=== PATIENT | male | born 1930 | race American Indian/Alaskan Native ===

== ENCOUNTER 2017-11-02 17:15 | Inpatient (IN) | payer MEDICARE, OTHER ==
[2017-11-02 17:16] VITALS: PULSE 65
--- NOTE | 2017-11-02 19:25 | ED PDOC ---
Arrival/HPI - General Chief Complaint: Weakness/Neurological Deficit Time Seen by Provider: 11/02/17 18:27 - History of Present Illness Narrative History of Present Illness (Text): 11/02/17 18:26 A 87 year old male, whose past medical history includes CVA, HTN, hypercholestremia, and Atrial fibrillation, presents to the emergency department complaining of generalized weakness for 3 days. Patient reports he is unable to get up from bed and has been unable to eat/drink since for 3 days. Patient denies any chest pain, shortness of breath, or any other complaints. Patient is uncertain who is his PMD. Time/Duration: < week (3 days) Symptom Onset: Gradual Symptom Course: Unchanged Activities at Onset: Light Context: Home Past Medical History - Provider Review Nursing Documentation Reviewed: Yes - Infectious Disease Hx of Infectious Diseases: None - Tetanus Immunization Tetanus Immunization: Unknown - Cardiac Hx Pacemaker: Yes - Neurological Hx Paralysis: Yes (HX. R FACIAL DROOP) - Hematological/Oncological Hx Blood Transfusions: No - Musculoskeletal/Rheumatological Hx Musculoskeletal Disorders: No - Psychiatric Hx Depression: No Hx Emotional Abuse: No Hx Physical Abuse: No Hx Substance Use: No - Past Surgical History Past Surgical History: Unable to Obtain - Anesthesia Hx Anesthesia: No Hx Anesthesia Reactions: No Hx Malignant Hyperthermia: No - Suicidal Assessment Feels Threatened In Home Enviroment: No Family/Social History - Physician Review Nursing Documentation Reviewed: Yes Family/Social History: No Known Family HX Smoking Status: Never Smoked Hx Alcohol Use: No Hx Substance Use: No Hx Substance Use Treatment: No Allergies/Home Meds Allergies/Adverse Reactions: Allergies No Known Allergies Allergy (Verified 04/10/16 14:25) Home Medications: Home Meds Medication Instructions Recorded Confirmed Ergocalciferol (Vitamin D2) 50,000 iu PO WED 07/26/14 11/02/17 [Vitamin D] Simvastatin 40 mg PO DAILY 07/26/14 11/02/17 Cephalexin [Keflex] 500 mg PO Q12H 04/10/16 11/02/17 Lisinopril [Zestril] 2.5 mg PO DAILY 04/10/16 11/02/17 Warfarin Sodium [Jantoven] 3 mg PO DAILY 11/02/17 11/02/17 Review of Systems - Physician Review All systems were reviewed & negative as marked: Yes - Review of Systems Constitutional: Other (weakness) Gastrointestinal: Appetite Changes (unable to eat/drink for past 3 days (since start of symptom)) Physical Exam Vital Signs Reviewed: Yes Vital Signs Temp Pulse Resp BP Pulse Ox 11/02/17 17:59 97.5 F L 11/02/17 17:16 82 17 108/79 97 Temperature: Afebrile Blood Pressure: Normal Pulse: Regular Respiratory Rate: Normal Appearance: Positive for: Well-Appearing Pain Distress: None Mental Status: Positive for: Alert and Oriented X 3 - Systems Exam Head: Present: Atraumatic, Normocephalic Pupils: Present: PERRL Extroacular Muscles: Present: EOMI Conjunctiva: Present: Normal Mouth: Present: Dry Neck: Present: Normal Range of Motion Respiratory/Chest: Present: Clear to Auscultation, Good Air Exchange, Other ( pacemaker to left chest wall). No: Respiratory Distress, Accessory Muscle Use Cardiovascular: Present: Regular Rate and Rhythm, Normal S1, S2. No: Murmurs Abdomen: Present: Normal Bowel Sounds. No: Tenderness, Distention, Peritoneal Signs Back: Present: Normal Inspection Upper Extremity: Present: Normal Inspection. No: Cyanosis, Edema Lower Extremity: Present: Normal Inspection. No: Edema Neurological: Present: GCS=15, CN II-XII Intact, Speech Normal Skin: Present: Warm, Dry, Normal Color. No: Rashes Psychiatric: Present: Alert, Oriented x 3, Normal Insight, Normal Concentration Medical Decision Making ED Course and Treatment: 11/02/17 18:28 Impression: 87 year old male with weakness. Physical exam shows mucous membranes are dry; pacemaker to left chest wall; overall normal physical examination. Plan: -- EKG -- Head CT -- Chest X-ray -- Labs -- Urine Culture -- Urinalysis -- Reassess and disposition Prior Visits: Notes and results from previous visits were reviewed. Patient was last seen in the emergency department on 04/10/2016 for neck pain. Patient was d/c home. Progress Notes: EKG: Ordered, reviewed, and independently interpreted the EKG. Rate : 63 BPM Rhythm : Pacemaker. Interpretation : No ST-segment elevations or depressions, no T-wave inversions, normal intervals. Comparison : No previous EKG for comparison. 11/02/2017 20:[address] IMPRESSION: 1. Hypodense encephalomalacia is identified involving the left insular cortex and frontal lobe, consistent with an old infarct. 2. No acute intracranial hemorrhage or acute territorial type infarct. 3. There are scattered foci of hypodensity within the cerebral white matter, likely representing small vessel ischemic disease in a patient this age. 4. Mild atrophy. 5. Paranasal sinus disease is noted above. If the patient has facial trauma, a facial CT is recommended. Dictator: Jeffrey Barahona MD - Lab Interpretations Lab Results: 11/02/17 19:00 11/02/17 19:00 Lab Results 11/02/17 19:00: Free T4 1.23, Total T3 0.69 L, TSH 3rd Generation 1.66 11/02/17 19:00: Sodium 142, Potassium 4.3, Chloride 105, Carbon Dioxide 24, Anion Gap 18, BUN 57 H, Creatinine 3.3 H, Est GFR ( Amer) 21, Est GFR ( Non-Af Amer) 18, Random Glucose 96, Calcium 9.7, Magnesium 1.7, Total Bilirubin 1.5 H, AST 348 H, ALT 73 H, Alkaline Phosphatase 50, Lactate Dehydrogenase 1819 H, Total Creatine Kinase 19664 H, CK-MB (CK-2) 43.1 H, CK-MB (CK-2) % 0.4 L, Troponin I 0.13 H* D, NT-Pro-B Natriuret Pep 84988 H, Total Protein 7.9, Albumin 4.0, Globulin 4.0, Albumin/Globulin Ratio 1.0 L 11/02/17 19:00: WBC 5.4, RBC 4.96, Hgb 15.2, Hct 45.6, MCV 91.9, MCH 30.6, MCHC 33.3, RDW 13.8, Plt Count 78 L, MPV 12.6 H, Gran % 76.6 H, Lymph % (Auto) 12.8 L , Troup % (Auto) 10.6 H, Eos % (Auto) 0.0 L, Baso % (Auto) 0.0, Gran # 4.13, Lymph # 0.7 L, Troup # 0.6, Eos # 0.0, Baso # 0.00 I have reviewed the lab results: Yes - RAD Interpretation Radiology Orders: 11/02/17 18:29 HEAD W/O CONTRAST [CT] Stat CHEST PORTABLE [RAD] Stat Supply Chain Generalist: ED Physician, Radiologist - EKG Interpretation Interpreted by ED Physician: Yes Type: 12 lead EKG - Medication Orders Current Medication Orders: Sodium Chloride (Sodium Chloride 0.9%) 1,000 mls @ 250 mls/hr IV .Q4H ONE Stop: 11/03/17 00:03 Last Admin: 11/02/17 20:20 Dose: 250 mls/hr eMAR Start Stop Document 11/02/17 20:20 SF (Rec: 11/02/17 20:52 SF [id number] Intravenous Solution Start Date 11/02/17 Start Time 20:20 End Date 11/02/17 - Scribe Statement The provider has reviewed the documentation as recorded by the Adelita Morelos Provider Scribe Attestation: All medical record entries made by the Hernandezibfranklin were at my direction and personally dictated by me. I have reviewed the chart and agree that the record accurately reflects my personal performance of the history, physical exam, medical decision making, and the department course for this patient. I have also personally directed, reviewed, and agree with the discharge instructions and disposition. Disposition/Present on Arrival - Present on Arrival Any Indicators Present on Arrival: No History of DVT/PE: No History of Uncontrolled Diabetes: No Urinary Catheter: No History of Decub. Ulcer: No History Surgical Site Infection Following: None - Disposition Have Diagnosis and Disposition been Completed?: Yes Diagnosis: Acute renal failure, Weakness, Elevated troponin Disposition: HOSPITALIZED Disposition Time: 21:00 Condition: FAIR
[2017-11-02 19:28] LABS: CALCIUM 9.7 mg/dL (8.4-10.5); MAGNESIUM 1.7 mg/dL (1.7-2.2)
[2017-11-02 19:33] LABS: GRAN # 4.13 (1.4-6.5); GRAN % 76.6 % (50.0-68.0); HEMOGLOBIN 15.2 g/dL (14.0-18.0); LYMPH # 0.7 (1.2-3.4); LYMPH % 12.8 % (22.0-35.0); MEAN CELL VOLUME 91.9 fl (80.0-105.0); MEAN CORPUSCULAR HEMOGLOBIN 30.6 pg (25.0-35.0); MEAN CORPUSCULAR HGB CONC 33.3 g/dl (31.0-37.0); MEAN PLATELET VOLUME 12.6 fl (7.0-11.0); MONO # 0.6 (0.1-0.6); MONO % 10.6 % (1.0-6.0); RBC 4.96 10^6/uL (3.5-6.1); RED CELL DISTRIBUTION WIDTH 13.8 % (11.5-14.5); WHITE BLOOD COUNT 5.4 10^3/ul (4.5-11.0)
[2017-11-02 19:42] LABS: FREE T4 1.23 ng/dL (0.78-2.19)
[2017-11-02 19:45] LABS: TROPONIN I 0.13 ng/mL
[2017-11-02] MEDS ORDERED: Sodium Chloride 0.9% 1,000 ML IV ONE (20:04)
--- NOTE | 2017-11-02 20:21 | CT ---
EXAM: CT Head Without Intravenous Contrast EXAM DATE/TIME: 11/02/2017 6:29 PM CLINICAL HISTORY: The patient age is 87 years old and is male; Injury or trauma; Fall; Initial encounter; Blunt trauma (contusions or hematomas); Additional info: R/O ich Facility exam id and description: Ct heads head w/o contrast TECHNIQUE: Axial computed tomography images of the head/brain without intravenous contrast. All CT scans at this facility use one or more dose reduction techniques, viz.: automated exposure control; ma/kV adjustment per patient size (including targeted exams where dose is matched to indication; i.e. head); or iterative reconstruction technique. Coronal and sagittal reformatted images were created and reviewed. COMPARISON: No relevant prior studies available. FINDINGS: Brain: Hypodense encephalomalacia is identified involving the left insular cortex and frontal lobe, consistent with an old infarct. There are scattered foci of hypodensity within the cerebral white matter, likely representing small vessel ischemic disease in a patient this age. Hypodense probable artifact is seen at the medial aspects of the anterior temporal lobes bilaterally. The acuity of the white matter disease is indeterminate. The white-lilly differentiation is otherwise preserved demonstrating no acute territorial type infarct. There is mild prominence of the ventricles and sulci, compatible with atrophy. No acute intracranial hemorrhage is seen. Midline shift: There is no midline shift. Ventricles: A small cavum septum pellucidum variant is visualized. Bones/joints: The calvarium demonstrates no evidence for a depressed fracture. Soft tissues: No acute abnormality. Vasculature: There is atherosclerotic calcification of the cavernous internal carotid arteries. Sinuses: There is mild mucosal thickening of scattered ethmoid air cells. Small air fluid levels are visualized within the right sphenoid sinus. Mastoid air cells: No mastoid effusion. IMPRESSION: 1. Hypodense encephalomalacia is identified involving the left insular cortex and frontal lobe, consistent with an old infarct. 2. No acute intracranial hemorrhage or acute territorial type infarct. 3. There are scattered foci of hypodensity within the cerebral white matter, likely representing small vessel ischemic disease in a patient this age. 4. Mild atrophy. 5. Paranasal sinus disease is noted above. If the patient has facial trauma, a facial CT is recommended.
[2017-11-02 20:24] LABS: CK MB% 0.4 % (2.5-3.0)
[2017-11-02 20:45] LABS: T3 0.69 ng/mL (0.97-1.69)
[2017-11-02 21:21] LABS: CK-MB 43.1 ng/mL (0.0-3.6)
[2017-11-02 22:08] LABS: URINE BILIRUBIN NEGATIVE (NEGATIVE); URINE BLOOD LARGE (NEGATIVE); URINE GLUCOSE (UA) NEGATIVE (NEGATIVE); URINE LEUKOCYTE ESTERASE NEGATIVE Leu/uL (NEGATIVE); URINE NITRATE NEGATIVE (NEGATIVE); URINE PROTEIN 30 mg/dL (<30 mg/dL); URINE UROBILINOGEN 0.2 E.U./dL (<1 E.U./dL)
[2017-11-02 22:13] LABS: URINE APPEARANCE SL CLOUDY (CLEAR); URINE COLOR YELLOW (YELLOW)
[2017-11-02 22:28] LABS: URINE BACTERIA MANY (NEG); URINE RBC 25 - 30 /hpf (0-2); URINE WBC 0 - 2 /hpf (0-6)
[2017-11-02] MEDS ORDERED: Iohexol 240 (50 ml) ONE (23:18)
[2017-11-03 00:37] LABS: INR 2.31 (0.93-1.08); PARTIAL THROMBOPLASTIN TIME 33.4 Seconds (25.1-36.5); PROTHROMBIN TIME 26.8 SECONDS (9.4-12.5)
[2017-11-03] MEDS ORDERED: Sodium Chloride 0.9% 1,000 ML IV SCH ×2 (00:45→07:00)
--- NOTE | 2017-11-03 00:52 | CP.PCM.HP ---
History of Present Illness - History of Present Illness History of Present Illness: Chief Complaint: Fall from bed HPI: Patient is a poor historian. History obtained is limited. Patient is an 87 year old male with a past medical history of CVA, pacemaker placement states about 1.5 days ago when trying to get out of bed, he slid onto his wooden floor. Patient states he was unable to get off the floor on his own and as a result was confined to the floor until his son came home from work. By time son came home patient was able to slide himself from bedroom to the kitchen in order to be seen. Patient admits to back pain from the fall he sustained. Patient denies syncope, chest pain, shortness of breath, dizziness, fevers, chills, cough, abdominal pain. Patient states the days prior he also did not have any symptoms. PMD: Dr. Pickett Surgical history: Pacemaker placement Social history: Denies tobacco, alcohol, illicit drug use Allergies: NKDA Medications: patient left them at home and cannot recall medications at the moment Family history: non-contributory Present on Admission - Present on Admission Any Indicators Present on Admission: No Review of Systems - Review of Systems Systems not reviewed;Unavailable: Acuity of Condition - Constitutional Constitutional: absent: Chills, Fever, Headache, Weakness - EENT Eyes: absent: Blurred Vision, Change in Vision Ears: absent: Dizziness Nose/Mouth/Throat: absent: Dysphagia - Cardiovascular Cardiovascular: absent: Chest Pain, Dyspnea, Edema, Palpitations - Respiratory Respiratory: absent: Cough, Dyspnea - Gastrointestinal Gastrointestinal: absent: Diarrhea, Nausea, Vomiting - Genitourinary Genitourinary: absent: Difficulty Urinating, Dysuria - Musculoskeletal Musculoskeletal: Back Pain. absent: Numbness - Neurological Neurological: absent: Dizziness, Numbness, Vertigo - Psychiatric Psychiatric: absent: Anxiety, Confusion Past Patient History - Infectious Disease Hx of Infectious Diseases: None - Tetanus Immunizations Tetanus Immunization: Unknown - Past Social History Smoking Status: Never Smoked - CARDIAC Hx Pacemaker: Yes - NEUROLOGICAL Hx Paralysis: Yes (HX. R FACIAL DROOP) - HEMATOLOGICAL/ONCOLOGICAL Hx Blood Transfusions: No - MUSCULOSKELETAL/RHEUMATOLOGICAL Hx Musculoskeletal Disorders: No - PSYCHIATRIC Hx Depression: No Hx Emotional Abuse: No Hx Physical Abuse: No Hx Substance Use: No - SURGICAL HISTORY Hx Surgeries: Yes - ANESTHESIA Hx Anesthesia: No Hx Anesthesia Reactions: No Hx Malignant Hyperthermia: No Meds Allergies/Adverse Reactions: Allergies Allergy/AdvReac Type Severity Reaction Status Date / Time No Known Allergies Allergy Verified 04/10/16 14:25 Physical Exam - Constitutional Appears: Non-toxic, No Acute Distress - Head Exam Head Exam: ATRAUMATIC, NORMAL INSPECTION, NORMOCEPHALIC - Eye Exam Eye Exam: EOMI, Normal appearance Pupil Exam: PERRL - ENT Exam ENT Exam: Mucous Membranes Moist, Normal Exam - Neck Exam Neck exam: Positive for: Normal Inspection - Respiratory Exam Respiratory Exam: Clear to Auscultation Bilateral, NORMAL BREATHING PATTERN. absent: Rhonchi, Wheezes - Cardiovascular Exam Cardiovascular Exam: REGULAR RHYTHM, +S1, +S2 - GI/Abdominal Exam GI & Abdominal Exam: Normal Bowel Sounds, Soft - Extremities Exam Extremities exam: Positive for: full ROM, normal inspection, pedal pulses present. Negative for: calf tenderness, tenderness - Back Exam Back exam: paraspinal tenderness, tenderness. absent: rash noted - Neurological Exam Neurological exam: Alert, CN II-XII Intact, Oriented x3 - Psychiatric Exam Psychiatric exam: Normal Affect, Normal Mood - Skin Skin Exam: Intact, Normal Color, Warm Results - Vital Signs Recent Vital Signs: Last Vital Signs Temp 97.5 F L 11/02/17 17:59 Pulse 62 11/02/17 23:03 Resp 16 11/02/17 23:03 BP 109/54 L 11/02/17 23:03 Pulse Ox 96 11/02/17 23:03 - Labs Result Diagrams: 11/03/17 08:00 11/03/17 08:00 Labs: Laboratory Results - last 24 hr 11/02/17 11/02/17 11/02/17 21:30 23:55 23:55 PT 26.8 H INR 2.31 H APTT 33.4 Uric Acid 8.0 Urine Color Yellow Urine Appearance Sl cloudy Urine pH 6.0 Ur Specific Driscoll >= 1.030 Urine Protein 30 H Urine Glucose (UA) Negative Urine Ketones Trace H Urine Blood Large H Urine Nitrate Negative Urine Bilirubin Negative Urine Urobilinogen 0.2 Ur Leukocyte Esterase Negative Urine RBC 25 - 30 Urine WBC 0 - 2 Ur Epithelial Cells 10 - 12 Urine Bacteria Many Assessment & Plan - Assessment and Plan (Free Text) Assessment: Patient is an 87 year old male with a past medical history of CVA, pacemaker placement states about 1.5 days ago when trying to get out of bed, he slid onto his wooden floor. Plan: Mechanical Fall vs. Syncopal Episode -X-ray pelvis,hip,spine,knee -CT chest abdomen pelvis PO contrast -Echocardiogram -Carotid doppler -Seizure precautions -High risk fall precautions -Neuro checks q2h -Bedrest -Cardiology consult -Neurology consult -total t14 -B12,Folate -Lipid panel -HgA1C -Blood and Urine cx Rhabdomyolysis -Will administer 2 liters of IVF@250, then cut back to IVF@125 cc per hour -Repeat CPK and Troponin in morning BURTON -Urine + Plasma osmolality, Urine sodium -Renal US -Uric acid -PTH Thrombocytopenia -US abdomen -lactic acid plasma stat -STAT PT,PTT DVT/GI prophylaxis scds and compression stockings also
--- NOTE | 2017-11-03 02:56 | CT ---
EXAM: CT Abdomen and Pelvis Without Intravenous Contrast CLINICAL HISTORY: The patient age is 87 years old and is male; Pain; Abdominal pain; Generalized; Chest pain; Additional info: Transaminitis. With po contrast-as discussed Facility exam id and description: Ct chabdpelpo chest, abdomen, pelvis po only TECHNIQUE: Axial computed tomography images of the abdomen and pelvis without intravenous contrast. All CT scans at this facility use one or more dose reduction techniques, viz.: automated exposure control; ma/kV adjustment per patient size (including targeted exams where dose is matched to indication; i.e. head); or iterative reconstruction technique. Coronal and sagittal reformatted images were created and reviewed. COMPARISON: No relevant prior studies available. FINDINGS: Limitations: This study is limited by the absence of intravenous contrast. ABDOMEN: Liver: No mass. Gallbladder and bile ducts: There is wall thickening of the gallbladder, without discrete gallstones. Pancreas: Normal contour. No ductal dilation. Spleen: No splenomegaly. Adrenals: No mass. Kidneys and ureters: There is bilateral renal pelviectasis with mild bilateral hydroureter. No obstructing calculi are visualized. Stomach and bowel: No obstruction. Moderate fecal material is visualized within the rectum. There is wall thickening of the distal stomach, consistent with incomplete distention or gastritis. Appendix: No findings to suggest acute appendicitis. PELVIS: Bladder: A Spaulding catheter is visualized within the bladder. There is nonspecific bladder wall thickening with adjacent stranding of the mesentery. Cystitis is considered. Additional pathology cannot be excluded. Reproductive: The prostate is enlarged. There is a right-sided hydrocele within the visualized scrotum. ABDOMEN and PELVIS: Intraperitoneal space: There is a small amount of free fluid within the pelvis. Bones/joints: Hypertrophic degenerative changes are noted within the spine. There is grade I anterolisthesis of L3 on L4. Soft tissues: Extensive muscle atrophy is visualized. Vasculature: There is atherosclerotic calcification of the abdominal aorta. Additional atherosclerotic changes are identified of the iliac arteries and visualized femoral arteries. Lymph nodes: No enlarged lymph nodes. Other findings: There is stranding of the abdominal and pelvic mesenteric, which may be inflammatory. IMPRESSION: 1. There is bilateral renal pelviectasis with mild bilateral hydroureter. No obstructing calculi are visualized. 2. There is wall thickening of the gallbladder, without discrete gallstones. Clinical correlation and possible ultrasound are recommended. 3. The prostate is enlarged. 4. There is nonspecific bladder wall thickening with adjacent stranding of the mesentery. Cystitis is considered. Clinical correlation is recommended. 5. There is a right-sided hydrocele within the visualized scrotum. 6. There is stranding of the abdominal and pelvic mesenteric, which may be inflammatory. 7. There is a small amount of free fluid within the pelvis. 8. There is wall thickening of the distal stomach, consistent with incomplete distention or gastritis. 9. Additional CT findings described above. EXAM: CT Chest Without Intravenous Contrast EXAM DATE/TIME: 11/02/2017 11:10 PM CLINICAL HISTORY: The patient age is 87 years old and is male; Pain; Abdominal pain; Generalized; Chest pain; Additional info: Transaminitis. With po contrast-as discussed Facility exam id and description: Ct chabdpelpo chest, abdomen, pelvis po only TECHNIQUE: Axial computed tomography images of the chest without intravenous contrast. All CT scans at this facility use one or more dose reduction techniques, viz.: automated exposure control; ma/kV adjustment per patient size (including targeted exams where dose is matched to indication; i.e. head); or iterative reconstruction technique. Coronal and sagittal reformatted images were created and reviewed. COMPARISON: DX - CHEST PORTABLE 2017-11-02 19:02 FINDINGS: Lungs: Patchy nonspecific groundglass density and atelectatic changes are visualized within both lower lobes. Atelectatic change or parenchymal scarring is visualized within the right pulmonary apex. No lung mass. Pleural space: No pneumothorax. No significant effusion. Heart: There is cardiomegaly. There is a small amount of pericardial fluid, which is greater than fluid attenuation. This is consistent with increased complexity of the fluid or hemopericardium. Bones/joints: Osteopenia. Hypertrophic degenerative changes are noted within the spine. There is increased kyphosis of the thoracic spine. Vasculature: No thoracic aortic aneurysm. Lymph nodes: There is abnormal isodensity within the AP window, consistent with lymphadenopathy or extension of the complex pericardial fluid. Scattered additional small mediastinal lymph nodes are visualized, some which are calcified. Tubes, lines and devices: A left-sided pacemaker is visualized. Pacer leads are visualized within the heart. IMPRESSION: 1. There is cardiomegaly. 2. There is a small amount of pericardial fluid, which is greater than fluid attenuation. This is consistent with increased complexity of the fluid or hemopericardium. 3. There is abnormal isodensity within the AP window, consistent with lymphadenopathy or extension of the complex pericardial fluid. 4. Patchy nonspecific groundglass density and atelectatic changes are visualized within both lower lobes. 5. Additional CT findings described above.
--- NOTE | 2017-11-03 03:03 | US ---
EXAM: US Abdomen Complete EXAM DATE/TIME: 11/02/2017 11:29 PM CLINICAL HISTORY: The patient age is 87 years old and is male; Pain; Abdominal pain; Generalized; Additional info: Transaminitis Facility exam id and description: Us abd abdomen complete TECHNIQUE: Real-time ultrasound of the abdomen (complete) with image documentation. COMPARISON: No relevant prior studies available. FINDINGS: Liver: The liver measures 13.1 cm in length. There is normal echotexture of the liver. Gallbladder: There is wall thickening of the gallbladder. No shadowing gallstones are visualized within the gallbladder. The sonographic Raya sign is negative. There is no visualized sludge within the gallbladder. Common bile duct: There is a tiny focus of hyperechogenicity within the common bile duct, and a common bile duct stone is considered, although there is no posterior acoustic shadowing to confirm this finding. The common bile duct measures 0.6 cm in diameter, which is at the upper limits of normal. Pancreas: There is a limited evaluation of the pancreas. Kidneys: The right kidney measures 9.7 x 4.0 x 3.9 cm. The left kidney measures 9.8 x 4.7 x 4.7 cm. There is no hydronephrosis or shadowing nephrolithiasis within the kidneys. Artifact limits evaluation of the left kidney. Spleen: The spleen measures 11.4 x 3.8 x 4.4 cm. The spleen is normal in echotexture. Aorta: Not imaged. Inferior vena cava: Not imaged. IMPRESSION: 1. There is wall thickening of the gallbladder. No shadowing gallstones are visualized within the gallbladder. 2. There is a tiny focus of hyperechogenicity within the common bile duct, and a common bile duct stone is considered. The common bile duct measures 0.6 cm in diameter, which is at the upper limits of normal. This can be further evaluated with ERCP. 3. Additional findings described above.
[2017-11-03 08:32] LABS: BASO # 0.01 K/mm3 (0.0-2.0); BASO % 0.2 % (0.0-3.0); GRAN # 2.69 (1.4-6.5); GRAN % 60.8 % (50.0-68.0); HEMOGLOBIN 12.3 g/dL (14.0-18.0); LYMPH # 0.9 (1.2-3.4); LYMPH % 20.5 % (22.0-35.0); MEAN CELL VOLUME 92.7 fl (80.0-105.0); MEAN CORPUSCULAR HGB CONC 32.4 g/dl (31.0-37.0); MEAN PLATELET VOLUME 12.6 fl (7.0-11.0); MONO # 0.8 (0.1-0.6); MONO % 18.5 % (1.0-6.0); RBC 4.1 10^6/uL (3.5-6.1); RED CELL DISTRIBUTION WIDTH 13.8 % (11.5-14.5); WHITE BLOOD COUNT 4.4 10^3/ul (4.5-11.0)
[2017-11-03 08:51] LABS: ALB/GLOB RATIO 0.9 (1.1-1.8); ALBUMIN 2.9 g/dL (3.0-4.8); CALCIUM 8.4 mg/dL (8.4-10.5)
[2017-11-03 08:53] LABS: TROPONIN I 0.09 ng/mL
[2017-11-03 08:55] LABS: INR 2.66 (0.93-1.08); PARTIAL THROMBOPLASTIN TIME 33.4 Seconds (25.1-36.5); PROTHROMBIN TIME 31.2 SECONDS (9.4-12.5)
--- NOTE | 2017-11-03 08:57 | CP.PCM.CON ---
<Ina Kulkarni - Last Filed: 11/03/17 11:31> History of Present Illness - History of Present Illness History of Present Illness: Consult: Fall r/o syncope Mr Demetrio Quintanilla, 87 M, with PMHx CVA with residual LLE weakness, CAD, cardiomyopathy w/ AICD, Arrthymia on coumadin, and PVD, came in status post fall. When pt tried to get out of bed, he slid onto his wooden floor. Patient states he was unable to get off the floor on his own and as a result was confined to the floor until his son came home from work. By time son came home patient was able to slide himself from bedroom to the kitchen in order to be seen. Patient admits to back pain from the fall he sustained. Denied lost of consciouness, room spinning, lightheadedness, tinnitis, change of vision, sudden weakness. No recent sickness. At baseline, pt has lightheadedness when changing position too quickly. Head CT: (+) Old infarct at L insular cortex and frontal lobe (+) scattered hypodensity in cerebral white matter likely small vessl ischemic dz Mild atropy (+) Ethmoid sinus mucosal thicken. R sphenoid sinus with air/fluid. Abd U/S: CBD 6mm with suspected stone + Gall bladder wall thickened CT A/P: renal pelviectasia with b/l hydroureter Pending spine, knee, hip x-ray ROS - (+) lightheadedness (+) tinnitis occasionally Denies syncope, chest pain, shortness of breath, dizziness, fevers, chills, cough, abdominal pain. Patient states the days prior he also did not have any symptoms. PMH: CVA with residual LLE weakness (L insular cortex and frontal lobe) CAD, Hx NSTEMI CHF, severe cardiomyopathy s/p AICD placement, severe mitral regurg Arrthythmia on warfarin Peripheral vascular disease HTN, HLD PSH: AICD FH: non-contributory SH: Denies tobacco, alcohol, illicit drug use Lives with grandson. Pt is independent in all iADLs and ADLs Allergies: NKDA Medications: Warfarin Lisinopril, simvastatin, D2 PMD: Dr. Pickett Past Patient History - Infectious Disease Hx of Infectious Diseases: None - Tetanus Immunizations Tetanus Immunization: Unknown - Past Social History Smoking Status: Never Smoked - CARDIAC Hx Congestive Heart Failure: Yes Hx Hypercholesterolemia: Yes Hx Hypertension: Yes Hx Pacemaker: Yes - NEUROLOGICAL Hx Paralysis: Yes (HX. R FACIAL DROOP) - HEMATOLOGICAL/ONCOLOGICAL Hx Blood Transfusions: No - MUSCULOSKELETAL/RHEUMATOLOGICAL Hx Falls: No - PSYCHIATRIC Hx Substance Use: No - SURGICAL HISTORY Hx Surgeries: Yes - ANESTHESIA Hx Anesthesia: No Hx Anesthesia Reactions: No Hx Malignant Hyperthermia: No Meds Allergies/Adverse Reactions: Allergies Allergy/AdvReac Type Severity Reaction Status Date / Time No Known Allergies Allergy Verified 04/10/16 14:25 - Medications Medications: Current Medications Atorvastatin Calcium (Lipitor) 20 mg PO DIN RAYMUNDO Sodium Chloride (Sodium Chloride 0.9%) 1,000 mls @ 100 mls/hr IV .Q10H RAYMUNDO Last Admin: 11/03/17 07:00 Dose: 100 mls/hr Lisinopril (Zestril) 2.5 mg PO DAILY RAYMUNDO Physical Exam - Constitutional Appears: Well - Head Exam Head Exam: ATRAUMATIC, NORMAL INSPECTION, NORMOCEPHALIC - Eye Exam Eye Exam: EOMI, Normal appearance, PERRL. absent: Scleral icterus Pupil Exam: NORMAL ACCOMODATION - Neck Exam Additional comments: supple - Respiratory Exam Respiratory Exam: Clear to Auscultation Bilateral, NORMAL BREATHING PATTERN. absent: Rales, Rhonchi, Wheezes - Cardiovascular Exam Cardiovascular Exam: REGULAR RHYTHM, +S1, +S2 - GI/Abdominal Exam GI & Abdominal Exam: Normal Bowel Sounds, Soft. absent: Tenderness - Extremities Exam Extremities exam: Negative for: calf tenderness, pedal edema - Neurological Exam Neurological exam: Alert, CN II-XII Intact, Oriented x3 Additional comments: Speech: No denture, fluent recall: 2/3 motor: 5/5 throughout except 4/5 LLE Sensory: intact [id number] coordination: intact rapid alternating movement: intact Results - Vital Signs Recent Vital Signs: Last Vital Signs Temp 97.6 F 11/03/17 06:00 Pulse 61 11/03/17 06:00 Resp 20 11/03/17 06:00 BP 110/55 L 11/03/17 06:00 Pulse Ox 94 L 11/03/17 06:00 - Labs Result Diagrams: 11/03/17 08:00 11/03/17 08:00 Labs: Laboratory Results - last 24 hr 11/02/17 11/02/17 11/02/17 21:30 23:55 23:55 WBC RBC Hgb Hct MCV MCH MCHC RDW Plt Count MPV Gran % Lymph % (Auto) [place] % (Auto) Eos % (Auto) Baso % (Auto) Gran # Lymph # [place] # Eos # Baso # PT 26.8 H INR 2.31 H APTT 33.4 Sodium Potassium Chloride Carbon Dioxide Anion Gap BUN Creatinine Est GFR ( Amer) Est GFR (Non-Af Amer) Random Glucose Lactic Acid 2.4 H Uric Acid Calcium Total Bilirubin AST ALT Alkaline Phosphatase Lactate Dehydrogenase Troponin I Total Protein Albumin Globulin Albumin/Globulin Ratio Urine Color Yellow Urine Appearance Sl cloudy Urine pH 6.0 Ur Specific [place] >= 1.030 Urine Protein 30 H Urine Glucose (UA) Negative Urine Ketones Trace H Urine Blood Large H Urine Nitrate Negative Urine Bilirubin Negative Urine Urobilinogen 0.2 Ur Leukocyte Esterase Negative Urine RBC 25 - 30 Urine WBC 0 - 2 Ur Epithelial Cells 10 - 12 Urine Bacteria Many 11/02/17 11/03/17 11/03/17 23:55 08:00 08:00 WBC 4.4 L RBC 4.10 Hgb 12.3 L D Hct 38.0 L MCV 92.7 MCH 30.0 MCHC 32.4 RDW 13.8 Plt Count 70 L MPV 12.6 H Gran % 60.8 Lymph % (Auto) 20.5 L [place] % (Auto) 18.5 H Eos % (Auto) 0.0 L Baso % (Auto) 0.2 Gran # 2.69 Lymph # 0.9 L [place] # 0.8 H Eos # 0.0 Baso # 0.01 PT INR APTT Sodium 144 Potassium 4.0 Chloride 109 H Carbon Dioxide 24 Anion Gap 15 BUN 52 H Creatinine 2.1 H Est GFR ( Amer) 36 Est GFR (Non-Af Amer) 30 Random Glucose 76 Lactic Acid Uric Acid 8.0 Calcium 8.4 Total Bilirubin 1.1 AST 218 H D ALT 63 H Alkaline Phosphatase 35 L D Lactate Dehydrogenase 1155 H Troponin I 0.09 D Total Protein 6.0 Albumin 2.9 L Globulin 3.1 Albumin/Globulin Ratio 0.9 L Urine Color Urine Appearance Urine pH Ur Specific [place] Urine Protein Urine Glucose (UA) Urine Ketones Urine Blood Urine Nitrate Urine Bilirubin Urine Urobilinogen Ur Leukocyte Esterase Urine RBC Urine WBC Ur Epithelial Cells Urine Bacteria 11/03/17 08:00 WBC RBC Hgb Hct MCV MCH MCHC RDW Plt Count MPV Gran % Lymph % (Auto) [place] % (Auto) Eos % (Auto) Baso % (Auto) Gran # Lymph # [place] # Eos # Baso # PT 31.2 H INR 2.66 H APTT 33.4 Sodium Potassium Chloride Carbon Dioxide Anion Gap BUN Creatinine Est GFR ( Amer) Est GFR (Non-Af Amer) Random Glucose Lactic Acid Uric Acid Calcium Total Bilirubin AST ALT Alkaline Phosphatase Lactate Dehydrogenase Troponin I Total Protein Albumin Globulin Albumin/Globulin Ratio Urine Color Urine Appearance Urine pH Ur Specific [place] Urine Protein Urine Glucose (UA) Urine Ketones Urine Blood Urine Nitrate Urine Bilirubin Urine Urobilinogen Ur Leukocyte Esterase Urine RBC Urine WBC Ur Epithelial Cells Urine Bacteria Assessment & Plan - Assessment and Plan (Free Text) Plan: Mr Demetrio Quintanilla, 87 M, with PMHx CVA with residual LLE weakness, CAD, cardiomyopathy w/ AICD, A-fib on coumadin, and PVD, came in status post fall. Denied LOC. He was found to have transaminitis and hyperbilirubinemia with U/S showing CBD dilated at 6mm with possible stone. His renal function is reduced to creatinin 3.3 on admission Near syncope associated with mechanical fall due to deconditioned state from old stroke - Orthostatic VS - Carotid doppler U/S - PT/OT for deconditioning and gait training - Continue coumadin for A-fib and stroke prevention. Aim INR 2-3 - Hold simvastain 40 for stroke prevention until after acute liver problem resolved. No need to add ASA for now. Imaging: Head CT: (+) Old infarct at L insular cortex and frontal lobe (+) scattered hypodensity in cerebral white matter likely small vessl ischemic dz Mild atropy (+) Ethmoid sinus mucosal thicken. R sphenoid sinus with air/fluid. s/r/d/w Dr. Wolfe <Bridger Wolfe - Last Filed: 11/03/17 14:33> Meds - Medications Medications: Current Medications Atorvastatin Calcium (Lipitor) 20 mg PO DIN RAYMUNDO Dobutamine HCl/Dextrose (Dobutamine/Dextrose 5% 500mg/250ml) 500 mg in 250 mls @ 9.594 mls/hr IV .Q24H PRN; 5 MCG/KG/MIN PRN Reason: Shortness of Breath Last Admin: 11/03/17 12:42 Dose: 9.594 mls/hr Sodium Chloride (Sodium Chloride 0.9%) 1,000 mls @ 125 mls/hr IV .Q8H RAYMUNDO Last Admin: 11/03/17 12:43 Dose: 125 mls/hr Results - Vital Signs Recent Vital Signs: Last Vital Signs Temp 97.6 F 11/03/17 12:00 Pulse 60 11/03/17 12:42 Resp 20 11/03/17 12:00 BP 109/59 L 11/03/17 12:42 Pulse Ox 94 L 11/03/17 06:00 - Labs Result Diagrams: 11/03/17 08:00 11/03/17 08:00 Labs: Laboratory Results - last 24 hr 11/02/17 11/02/17 11/02/17 21:30 23:55 23:55 WBC RBC Hgb Hct MCV MCH MCHC RDW Plt Count MPV Gran % Lymph % (Auto) [place] % (Auto) Eos % (Auto) Baso % (Auto) Gran # Lymph # [place] # Eos # Baso # PT 26.8 H INR 2.31 H APTT 33.4 Sodium Potassium Chloride Carbon Dioxide Anion Gap BUN Creatinine Est GFR ( Amer) Est GFR (Non-Af Amer) Random Glucose Lactic Acid 2.4 H Uric Acid Calcium Total Bilirubin AST ALT Alkaline Phosphatase Lactate Dehydrogenase Total Creatine Kinase CK-MB (CK-2) CK-MB (CK-2) % Troponin I Total Protein Albumin Globulin Albumin/Globulin Ratio Prostate Specific Ag Urine Color Yellow Urine Appearance Sl cloudy Urine pH 6.0 Ur Specific [place] >= 1.030 Urine Protein 30 H Urine Glucose (UA) Negative Urine Ketones Trace H Urine Blood Large H Urine Nitrate Negative Urine Bilirubin Negative Urine Urobilinogen 0.2 Ur Leukocyte Esterase Negative Urine RBC 25 - 30 Urine WBC 0 - 2 Ur Epithelial Cells 10 - 12 Urine Bacteria Many 11/02/17 11/03/17 11/03/17 23:55 08:00 08:00 WBC 4.4 L RBC 4.10 Hgb 12.3 L D Hct 38.0 L MCV 92.7 MCH 30.0 MCHC 32.4 RDW 13.8 Plt Count 70 L MPV 12.6 H Gran % 60.8 Lymph % (Auto) 20.5 L [place] % (Auto) 18.5 H Eos % (Auto) 0.0 L Baso % (Auto) 0.2 Gran # 2.69 Lymph # 0.9 L [place] # 0.8 H Eos # 0.0 Baso # 0.01 PT INR APTT Sodium 144 Potassium 4.0 Chloride 109 H Carbon Dioxide 24 Anion Gap 15 BUN 52 H Creatinine 2.1 H Est GFR ( Amer) 36 Est GFR (Non-Af Amer) 30 Random Glucose 76 Lactic Acid Uric Acid 8.0 Calcium 8.4 Total Bilirubin 1.1 AST 218 H D ALT 63 H Alkaline Phosphatase 35 L D Lactate Dehydrogenase 1155 H Total Creatine Kinase 4328 H CK-MB (CK-2) 22.2 H CK-MB (CK-2) % 0.5 L Troponin I 0.09 D Total Protein 6.0 Albumin 2.9 L Globulin 3.1 Albumin/Globulin Ratio 0.9 L Prostate Specific Ag Urine Color Urine Appearance Urine pH Ur Specific [place] Urine Protein Urine Glucose (UA) Urine Ketones Urine Blood Urine Nitrate Urine Bilirubin Urine Urobilinogen Ur Leukocyte Esterase Urine RBC Urine WBC Ur Epithelial Cells Urine Bacteria 11/03/17 11/03/17 08:00 08:00 WBC RBC Hgb Hct MCV MCH MCHC RDW Plt Count MPV Gran % Lymph % (Auto) [place] % (Auto) Eos % (Auto) Baso % (Auto) Gran # Lymph # [place] # Eos # Baso # PT 31.2 H INR 2.66 H APTT 33.4 Sodium Potassium Chloride Carbon Dioxide Anion Gap BUN Creatinine Est GFR ( Amer) Est GFR (Non-Af Amer) Random Glucose Lactic Acid Uric Acid Calcium Total Bilirubin AST ALT Alkaline Phosphatase Lactate Dehydrogenase Total Creatine Kinase CK-MB (CK-2) CK-MB (CK-2) % Troponin I Total Protein Albumin Globulin Albumin/Globulin Ratio Prostate Specific Ag 2.1 Urine Color Urine Appearance Urine pH Ur Specific [place] Urine Protein Urine Glucose (UA) Urine Ketones Urine Blood Urine Nitrate Urine Bilirubin Urine Urobilinogen Ur Leukocyte Esterase Urine RBC Urine WBC Ur Epithelial Cells Urine Bacteria Attending/Attestation - Attestation I have personally seen and examined this patient.: Yes I have fully participated in the care of the patient.: Yes I have reviewed all pertinent clinical information: Yes
--- NOTE | 2017-11-03 09:40 | RAD ---
HISTORY: r/o infiltrate COMPARISON: 01/02/2013 LUNGS:: The lungs are well inflated and clear. PLEURA: No significant pleural effusion identified, no pneumothorax apparent. CARDIOVASCULAR: There is persistent mild cardiomegaly. There is stable position of a left-sided pacemaker. OSSEOUS STRUCTURES: No significant abnormalities. VISUALIZED UPPER ABDOMEN: Normal. OTHER FINDINGS: None. IMPRESSION: No active pulmonary disease.
[2017-11-03 10:25] LABS: CK MB% 0.5 % (2.5-3.0); CK-MB 22.2 ng/mL (0.0-3.6)
--- NOTE | 2017-11-03 11:24 | CT ---
PROCEDURE: CT HEAD WITHOUT CONTRAST. HISTORY: Syncope COMPARISON: 11/02/2017. TECHNIQUE: Axial computed tomography images were obtained through the head/brain without intravenous contrast. Radiation dose: Total exam DLP = 885.41 mGy-cm. This CT exam was performed using one or more of the following dose reduction techniques: Automated exposure control, adjustment of the mA and/or kV according to patient size, and/or use of iterative reconstruction technique. FINDINGS: HEMORRHAGE: No intracranial hemorrhage. BRAIN: There is redemonstration of cystic encephalomalacia in the left frontal and anterior parietal lobes. There is no mass, mass effect or abnormal extra-axial fluid collection. There are mild chronic microangiopathic changes. VENTRICLES: There is mild age-related global parenchymal volume loss and proportionate enlargement of the ventricles and cortical sulci. CALVARIUM: The skull base and calvarium are normal. PARANASAL SINUSES: There is mild mucosal thickening in the right maxillary sinus. The remaining included paranasal sinuses are predominantly clear MASTOID AIR CELLS: Predominantly clear. OTHER FINDINGS: None. IMPRESSION: No acute intracranial abnormality. Left frontal and anterior parietal lobe cystic encephalomalacia, sequela of remote MCA territory infarction. Mild chronic microangiopathic changes and mild age-related global parenchymal volume loss.
--- NOTE | 2017-11-03 11:36 | CON ---
DATE: 11/03/2017 HISTORY: The patient is an 87-year-old male who fell to the floor without syncope. Because of his progressive weakness, the patient was unable to get off the floor and was brought to the hospital. The patient's past medical history includes a documented end-stage dilated cardiomyopathy. The last ejection fraction measured several years ago was 19% . He denies shortness of breath. The patient does not recall the reason why his heart has gotten so weak, but he does know that he has had a pacemaker and possible defibrillator placed. He cannot recall which doctor he sees as an outpatient, does not recall which recreational therapy technician that he follows up with. SOCIAL HISTORY: He denies smoking. REVIEW OF SYSTEMS: A 14-point review of systems reviewed. Negative angina. Positive progressive weakness. Negative shortness of breath at rest. Negative edema in the lower extremities. PHYSICAL EXAMINATION: VITAL SIGNS: Blood pressure 110/55, heart rate in the 60s. NECK: Negative JVD. LUNGS: Decreased breath sounds bilaterally. HEART: Reveal S1, S2 within 2/6 systolic ejection murmur. EXTREMITIES: Without edema. DIAGNOSTICS: EKG shows atrial fibrillation with a paced rhythm. LABORATORY DATA: BUN and creatinine is 52 and 2.1. His LFTs are elevated, troponin varies from 0.13-0.09. The hemoglobin is 12.3. IMPRESSION: 1. End-stage dilated cardiomyopathy. 2. Renal insufficiency. 3. Unclear whether elevated troponins are secondary to renal insufficiency versus a non-ST segment elevation myocardial infarction. 4. Progressive low cardiac output with diffuse weakness. 5. Chronic atrial fibrillation. 6. History of pacemaker probable defibrillator placement. 7. Rhabdomyolysis. PLAN: Given these findings, we will start the patient on IV dobutamine in hopes of increasing his cardiac output. We will obtain an echocardiogram to evaluate his LV function. Abdoulaye Church MD
[2017-11-03] MEDS: DOBUTamine 500mg/250ml D5W 500 MG/250 ML BAG IV PRN (12:42)
[2017-11-03] MEDS: Sodium Chloride 0.9% 1,000 ML IV SCH ×2 (12:43→20:17)
--- NOTE | 2017-11-03 14:37 | US ---
PROCEDURE: Bilateral carotid artery duplex ultrasound HISTORY: Carotid stenosis syncope PHYSICIAN(S): Abdoulaye Duron MD. TECHNIQUE: Duplex sonography and color-flow Doppler were used to evaluate the carotid bifurcations and limited segments of the vertebral arteries bilaterally. FINDINGS: There is mild smooth heterogeneous plaque noted at the carotid bifurcations bilaterally. The peak systolic velocity in the proximal right internal carotid artery is 56 cm/sec. This corresponds to a 20 to 39% proximal right ICA stenosis. Normal systolic velocities are noted in the proximal right external carotid artery. There is antegrade flow in the right vertebral artery. The peak systolic velocity in the proximal left internal carotid artery is 57 cm/sec. This corresponds to a 20 to 39% proximal left ICA stenosis. Normal systolic velocities are noted in the proximal left external carotid artery. There is antegrade flow in the left vertebral artery. IMPRESSION: 1. 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 2. Antegrade flow in both vertebral arteries.
[2017-11-03 17:42] LABS: FOLATE 18.2 ng/mL
--- NOTE | 2017-11-03 18:08 | CARD ---
APPROVED REPORT EKG Measurement Heart [id number] <Conclusion> AV sequential or dual chamber electronic pacemaker PVCs
--- NOTE | 2017-11-03 18:17 | CARD ---
APPROVED REPORT EKG Measurement Heart [id number] <Conclusion> AV sequential or dual chamber electronic pacemaker
[2017-11-04] MEDS: Sodium Chloride 0.9% 1,000 ML IV SCH ×3 (02:07→22:13)
[2017-11-04 06:26] LABS: BASO # 0.01 K/mm3 (0.0-2.0); BASO % 0.3 % (0.0-3.0); EOS % 0.3 % (1.5-5.0); GRAN # 2.3 (1.4-6.5); GRAN % 60.3 % (50.0-68.0); HEMOGLOBIN 10.8 g/dL (14.0-18.0); LYMPH # 0.9 (1.2-3.4); LYMPH % 23.6 % (22.0-35.0); MEAN CELL VOLUME 93.1 fl (80.0-105.0); MEAN CORPUSCULAR HGB CONC 32.2 g/dl (31.0-37.0); MEAN PLATELET VOLUME 13.1 fl (7.0-11.0); MONO # 0.6 (0.1-0.6); MONO % 15.5 % (1.0-6.0); RBC 3.6 10^6/uL (3.5-6.1); RED CELL DISTRIBUTION WIDTH 13.7 % (11.5-14.5); WHITE BLOOD COUNT 3.8 10^3/ul (4.5-11.0)
[2017-11-04 06:53] LABS: B-TYPE NATRIURETIC PEPTIDE 1180 pg/mL (0-450); LDL CHOLESTEROL 53 mg/dL (0-129); TROPONIN I 0.08 ng/mL
[2017-11-04 06:55] LABS: INR 2.42 (0.93-1.08); PARTIAL THROMBOPLASTIN TIME 36.2 Seconds (25.1-36.5); PROTHROMBIN TIME 28.3 SECONDS (9.4-12.5)
[2017-11-04 07:03] LABS: ALB/GLOB RATIO 0.9 (1.1-1.8); ALBUMIN 2.5 g/dL (3.0-4.8); ALT/SGPT 54 U/L (7-56); AST/SGOT 138 U/L (17-59); BILIRUBIN,DIRECT 0.4 mg/dL (0.0-0.4); BLOOD UREA NITROGEN 31 mg/dL (7-21); GFR AFRICAN-AMERICAN > 60; GFR NON-AFRICAN AMERICAN > 60; HDL CHOLESTEROL 35 mg/dL (29-60); MAGNESIUM 1.7 mg/dL (1.7-2.2)
[2017-11-04 08:51] LABS: CK MB% 0.5 % (2.5-3.0); CK-MB 6.6 ng/mL (0.0-3.6)
[2017-11-04] MEDS ORDERED: Lidocaine 2% Inj (20ml) ONE (09:52)
[2017-11-04] MEDS ORDERED: HEPARIN SODIUM/NS 2,000 ML IV ONE (09:52)
[2017-11-04] MEDS ORDERED: Iodixanol 320 MG/ML 200 ML BOTTLE IV ONE (09:53)
[2017-11-04] MEDS ORDERED: Iohexol 350mgl/ml 50 ML ONE (09:53)
--- NOTE | 2017-11-04 09:55 | PN ---
DATE: SUBJECTIVE: The patient is in the [facility] in [place], room 377, bed 1. The patient was admitted when he presented in the Emergency Room. He was brought in because he was found by his son on the floor. He said that he has not eaten for several days and he was very weak and he sat down and he could not get out of the floor. The patient has significant past history of cerebrovascular disease. The patient has a history of stroke in the past, hypertension, and hyperlipidemia. Evaluation in the Emergency Room, the patient was admitted for possible effects of syncope, but not defined. The patient was seen this morning. He had echocardiogram done in the lab this morning. The patient is able to stop. He seems to be comfortable. The patient is able to communicate. He has history of dilated cardiomyopathy, atrial fibrillation, and cerebrovascular accident. The patient also has a history of gallbladder disease and enlarged prostate. The patient has hydrocele on the right side. The patient has past history of possible chronic gallbladder disease. PHYSICAL EXAMINATION: VITAL SIGNS: This morning, the pulse is 77, blood pressure is 127/58, respirations are 19, and O2 sat is 95% on room air. LUNGS: Clinically clear. HEART: Normal sinus rhythm. S1 and S2 present. PLAN: The patient is not in atrial fibrillation at this time. The patient has been evaluated and treated for his general weakness and congestive cardiomyopathy. We will continue current management and followup. Juwan Neely MD
[2017-11-04] MEDS ORDERED: Phenylephrine 10 mg/ml Inj ONE (10:14)
--- NOTE | 2017-11-04 10:55 | CP.PCM.PN ---
<ShadIna - Last Filed: 11/04/17 10:56> Subjective - Date & Time of Evaluation Date of Evaluation: 11/04/17 Time of Evaluation: 09:00 - Subjective Subjective: Neurology PGY-[address] Wolfe Pt has no acute complain. He states that his L leg is good leg but weak. Objective - Vital Signs/Intake and Output Vital Signs (last 24 hours): Temp Pulse Resp BP Pulse Ox 98.6 F 69 19 127/58 L 95 11/04/17 05:57 11/04/17 10:00 11/04/17 05:57 11/04/17 05:57 11/04/17 05:57 Intake and Output: 11/04/17 11/04/17 06:59 18:59 Intake Total 680 Output Total 900 Balance -220 - Medications Medications: Current Medications Dobutamine HCl/Dextrose (Dobutamine/Dextrose 5% 500mg/250ml) 500 mg in 250 mls @ 9.594 mls/hr IV .Q24H PRN; 5 MCG/KG/MIN PRN Reason: Shortness of Breath Last Admin: 11/03/17 12:42 Dose: 9.594 mls/hr Sodium Chloride (Sodium Chloride 0.9%) 1,000 mls @ 125 mls/hr IV .Q8H RAYMUNDO Last Admin: 11/04/17 02:07 Dose: 125 mls/hr Pantoprazole Sodium (Protonix Ec Tab) 40 mg PO 0600,1600 RAYMUNDO - Labs Labs: 11/04/17 05:20 11/04/17 05:20 PT 28.3 SECONDS (9.4-12.5) H 11/04/17 05:20 INR 2.42 (0.93-1.08) H 11/04/17 05:20 APTT 36.2 Seconds (25.1-36.5) 11/04/17 05:20 - Constitutional Appears: No Acute Distress - Head Exam Head Exam: ATRAUMATIC, NORMAL INSPECTION, NORMOCEPHALIC - Eye Exam Eye Exam: EOMI, Normal appearance, PERRL Pupil Exam: NORMAL ACCOMODATION - ENT Exam ENT Exam: Mucous Membranes Moist - Neck Exam Additional comments: supple - Respiratory Exam Respiratory Exam: Clear to Ausculation Bilateral, NORMAL BREATHING PATTERN. absent: Rales, Rhonchi, Wheezes - Cardiovascular Exam Cardiovascular Exam: REGULAR RHYTHM, +S1, +S2. absent: Murmur - GI/Abdominal Exam GI & Abdominal Exam: Soft, Normal Bowel Sounds. absent: Guarding, Tenderness - Extremities Exam Extremities Exam: absent: Calf Tenderness - Neurological Exam Neurological Exam: Alert, Awake Additional comments: Speech: No denture, fluent recall: 2/3 motor: 5/5 UE b/l; 4-/5 RLE; 4+/5 LLE Sensory: intact [id number] coordination: intact rapid alternating movement: intact Assessment and Plan - Assessment and Plan (Free Text) Plan: Consult: Fall r/o syncope Mr Demetrio Quintanilla, 87 M, with PMHx CVA with residual LLE weakness, CAD, cardiomyopathy w/ AICD, A-fib on coumadin, and PVD, came in status post fall. Denied LOC. He was found to have transaminitis and hyperbilirubinemia with U/S showing CBD dilated at 6mm with possible stone. His renal function is reduced to creatinin 3.3 on admission possibly due to [place] for rhabdomyolysis. His troponin remains high at 0.08 despite creatinine improving to 1.1. Pending plan to cardiac catherterization. Pt is on dobutamine to support heart function. Near syncope and Fall secondary to transient cerebral hypopurfusion from dilated cardiomyopathy vs mechanical fall due to deconditioned state from old stroke - Orthostatic VS negative - Carotid doppler U/S: 20-39% b/l proximal ICA stenosis - PT/OT for deconditioning and gait training - Continue coumadin for A-fib and stroke prevention. Aim INR 2-3 - Hold simvastain 40 for stroke prevention until after acute liver problem resolved. No need to add ASA for now. - Maintain gentle hydration throughout the day - maintain sbp 120-130 - avoid sudden drop in BP Imaging: Head CT: (+) Old infarct at L insular cortex and frontal lobe (+) scattered hypodensity in cerebral white matter likely small vessl ischemic dz Mild atropy (+) Ethmoid sinus mucosal thicken. R sphenoid sinus with air/fluid. Suspected Choledocholithiasis Transaminitis with hyperbilirubinemia - consider surgery and/or GI consult. Elevated trops at 0.08 with Cre 1.1 - Pending plan to cardiac catherterization s/r/d/w Dr. Wolfe <AidenBridger - Last Filed: 11/04/17 11:20> Objective - Vital Signs/Intake and Output Vital Signs (last 24 hours): Temp Pulse Resp BP Pulse Ox 98.6 F 69 19 127/58 L 95 11/04/17 05:57 11/04/17 10:00 11/04/17 05:57 11/04/17 05:57 11/04/17 05:57 Intake and Output: 11/04/17 11/04/17 06:59 18:59 Intake Total 680 Output Total 900 Balance -220 - Medications Medications: Current Medications Dobutamine HCl/Dextrose (Dobutamine/Dextrose 5% 500mg/250ml) 500 mg in 250 mls @ 9.594 mls/hr IV .Q24H PRN; 5 MCG/KG/MIN PRN Reason: Shortness of Breath Last Admin: 11/03/17 12:42 Dose: 9.594 mls/hr Sodium Chloride (Sodium Chloride 0.9%) 1,000 mls @ 125 mls/hr IV .Q8H RAYMUNDO Last Admin: 11/04/17 02:07 Dose: 125 mls/hr Pantoprazole Sodium (Protonix Ec Tab) 40 mg PO 0600,1600 RAYMUNDO - Labs Labs: 11/04/17 05:20 11/04/17 05:20 PT 28.3 SECONDS (9.4-12.5) H 11/04/17 05:20 INR 2.42 (0.93-1.08) H 11/04/17 05:20 APTT 36.2 Seconds (25.1-36.5) 11/04/17 05:20 Attending/Attestation - Attestation I have personally seen and examined this patient.: Yes I have fully participated in the care of the patient.: Yes I have reviewed all pertinent clinical information, including history, physical exam and plan: Yes
--- NOTE | 2017-11-04 11:04 | RAD ---
PROCEDURE: Bilateral Knee Radiographs. HISTORY: fall COMPARISON: None. FINDINGS: BONES: Right Knee: No acute fracture. No acute fracture. Proliferative hypertrophic changes emanating from the femoral condyle and tibial plateau regions. Left Knee: No acute fracture. No acute fracture. Proliferative hypertrophic changes emanating from the femoral condyle and tibial plateau regions. JOINTS: Right Knee: No appreciable osteoarthritic change. Left knee: No appreciable osteoarthritic change. SOFT TISSUES: Right Knee: Normal. Left Knee: Normal. JOINT EFFUSION: Right Knee: None. Left Knee: None. OTHER FINDINGS: None. IMPRESSION: No acute findings related to/accounting for the clinical presentation.
--- NOTE | 2017-11-04 11:05 | RAD ---
PROCEDURE: Radiographs of the pelvis and bilateral hips HISTORY: Posttraumatic pain COMPARISON: None. FINDINGS: BONES: Pelvis: Unremarkable. Right hip:Unremarkable. Left hip:Unremarkable. JOINTS: Right hip: Mild degenerative changes. Left hip: Symmetrical degenerative change. Sacroiliac Joints: Unremarkable. Pubic symphysis: Unremarkable. SOFT TISSUES: Normal. OTHER FINDINGS: None. IMPRESSION: No acute findings related to/accounting for the clinical presentation. Additional benign and/or incidental findings described above.
--- NOTE | 2017-11-04 11:17 | RAD ---
PROCEDURE: Spine series HISTORY: fall COMPARISON: None. TECHNIQUE: Standard protocol for this study/examination. FINDINGS: Cervical spine: Limited to a lateral view. Limited to the upper 6 cervical vertebral bodies. This is a nondiagnostic study in the assessment of cervical pathology. Incidental finding(s): Degenerative changes C5-6. Thoracic spine: No acute findings. Lumbar spine: Mild dextroscoliosis. Secondary degenerative changes are mild. IMPRESSION: No gross abnormalities identified. If clinical suspicion remains for cervical thoracic or lumbar pathology additional targeted directed imaging recommended.
[2017-11-04 11:25] LABS: OSMOLALITY,URINE 649 mosm/kg (300-1000)
--- NOTE | 2017-11-04 11:55 | PN ---
DATE: 11/04/2017 SUBJECTIVE: The patient's is feeling well. His BUN and creatinine is dramatically improved, on IV dobutamine. His troponin remains elevated. PHYSICAL EXAMINATION: VITAL SIGNS: Blood pressure is 127/58, heart rate in the 60s. NECK: Negative JVD. LUNGS: Without rales. HEART: Reveal S1, S2. EXTREMITIES: Without edema. LABORATORY DATA: BUN and creatinine is 31 and 1.1, hemoglobin is 10.8, platelet count is 69. IMPRESSION: 1. Improvement of cardiac output with IV dobutamine. 2. Severe dilated cardiomyopathy. 3. Non-ST elevation myocardial infarction. 4. Coronary artery disease. 5. Chronic atrial fibrillation. 6. History of pacemaker. PLAN: Given these findings, the patient should have a cardiac catheterization to rule out significant coronary disease given his elevated troponins. However, his INR remains elevated while on Coumadin. We will defer the procedure. We will defer cardiac catheterization until Tuesday. Abdoulaye Church MD
[2017-11-04] MEDS: Pantoprazole 40 mg EC Tab PO SCH (15:40)
[2017-11-04] MEDS: DOBUTamine 500mg/250ml D5W 500 MG/250 ML BAG IV PRN (15:51)
--- NOTE | 2017-11-04 16:37 | CARD ---
APPROVED REPORT EXAM: Two-dimensional and M-mode echocardiogram with Doppler and color Doppler. INDICATION Cardiomyopathy 2D DIMENSIONS Left Atrium (2D)3.8 (1.6-4.0cm)IVSd1.3 (0.7-1.1cm) LVDd6.1 (3.9-5.9cm)PWd1.2 (0.7-1.1cm) LVDs5.6 (2.5-4.0cm)FS (%) 8.3 % LVEF (%)17.9 (>50%) M-Mode DIMENSIONS Aortic Root3.80 (2.2-3.7cm)Aortic Cusp Exc.1.90 (1.5-2.0cm) Aortic Valve AoV Peak Vmccpdon622.0cm/Daniele Peak GR.11mmHg Mitral Valve E/A ratio0.0 TDI E/Lateral E'0.0E/Medial E'0.0 Tricuspid Valve TR Peak [id number] [id number] Peak Gr.32mmHg [id number] LEFT VENTRICLE The Left Ventricle is mildly dilated. There is mild concentric left ventricular hypertrophy. The systolic function is severely impaired. Apical motion consistent with pacemaker activation. Transmitral Doppler flow pattern is Grade I-abnormal relaxation pattern. RIGHT VENTRICLE The right ventricle is normal size. There is normal right ventricular wall thickness. The right ventricular systolic function is normal. There is a pacemaker lead in the right ventricle. ATRIA The left atrium size is normal. The right atrium size is normal. AORTIC VALVE The aortic valve is moderately thickened. There is mild aortic regurgitation. MITRAL VALVE The mitral valve is moderately thickened. Mitral regurgitation is mild. TRICUSPID VALVE There is mild tricuspid regurgitation. There is mild pulmonary hypertension. GREAT VESSELS The aortic root is mildly enlarged. The IVC collapses <50% with inspiration. <Conclusion> The Left Ventricle is mildly dilated. There is mild concentric left ventricular hypertrophy. The systolic function is severely impaired. Apical motion consistent with pacemaker activation. Transmitral Doppler flow pattern is Grade I-abnormal relaxation pattern. There is mild aortic regurgitation.The aortic root is mildly enlarged. Mitral regurgitation is mild. There is mild tricuspid regurgitation. There is mild pulmonary hypertension.
[2017-11-05] MEDS: Pantoprazole 40 mg EC Tab PO SCH ×2 (05:20→16:51)
[2017-11-05] MEDS: Sodium Chloride 0.9% 1,000 ML IV SCH ×3 (06:04→13:21)
[2017-11-05 08:30] LABS: BASO # 0.01 K/mm3 (0.0-2.0); BASO % 0.2 % (0.0-3.0); EOS % 0.7 % (1.5-5.0); GRAN # 2.51 (1.4-6.5); GRAN % 61.9 % (50.0-68.0); HEMOGLOBIN 10.7 g/dL (14.0-18.0); LYMPH # 1.1 (1.2-3.4); LYMPH % 25.9 % (22.0-35.0); MEAN CELL VOLUME 92.1 fl (80.0-105.0); MEAN CORPUSCULAR HEMOGLOBIN 30.3 pg (25.0-35.0); MEAN CORPUSCULAR HGB CONC 32.9 g/dl (31.0-37.0); MONO # 0.5 (0.1-0.6); MONO % 11.3 % (1.0-6.0); RBC 3.53 10^6/uL (3.5-6.1); RED CELL DISTRIBUTION WIDTH 13.7 % (11.5-14.5); WHITE BLOOD COUNT 4.1 10^3/ul (4.5-11.0)
[2017-11-05 08:50] LABS: ALB/GLOB RATIO 0.9 (1.1-1.8); ALBUMIN 2.5 g/dL (3.0-4.8); ALT/SGPT 50 U/L (7-56); AST/SGOT 105 U/L (17-59); BILIRUBIN,DIRECT 0.2 mg/dL (0.0-0.4); BLOOD UREA NITROGEN 14 mg/dL (7-21); CALCIUM 8.1 mg/dL (8.4-10.5); GFR AFRICAN-AMERICAN > 60; GFR NON-AFRICAN AMERICAN > 60; MAGNESIUM 1.5 mg/dL (1.7-2.2); URIC ACID 3.8 mg/dL (3.5-8.5)
[2017-11-05 08:51] LABS: B-TYPE NATRIURETIC PEPTIDE 6010 pg/mL (0-450); TROPONIN I 0.05 ng/mL
[2017-11-05 08:54] LABS: INR 1.88 (0.93-1.08); PARTIAL THROMBOPLASTIN TIME 33.1 Seconds (25.1-36.5); PROTHROMBIN TIME 21.9 SECONDS (9.4-12.5)
[2017-11-05 09:07] LABS: CK-MB 3.8 ng/mL (0.0-3.6)
--- NOTE | 2017-11-05 11:55 | PN ---
DATE: SUBJECTIVE: The patient is seen this morning. He is lying in bed. He is comfortable. The patient is on dobutamine drip for congestive cardiomyopathy. The patient was admitted with weakness, unable to eat. The patient was found on the floor by the son and he was brought into the hospital. He is a very cheerful man and answers all questions. He has past history of stroke. He had atherosclerotic heart disease. PHYSICAL EXAMINATION: VITAL SIGNS: His pulse is 59, blood pressure is 144/63, respirations 18, O2 sat is 93% on room air. The patient's temperature is 98.6. HEENT: Head is normocephalic. NECK: Thyroid is not enlarged. JVP is flat. Carotid pulses are present. HEART: Normal sinus rhythm. LUNGS: Trachea is central. Breath sounds are vesicular. No adventitious sounds. ABDOMEN: Soft. Liver and spleen not palpable. CENTRAL NERVOUS SYSTEM: The patient has no focal deficit at this time. He has weakness. The patient is on multiple medications. He is on dobutamine drip as mentioned. The patient is on Protonix. The patient is on Angiomax. The patient is on heparin 2000 units per hour. The patient is on Plavix. LABORATORY DATA: The lab work done in the hospital. The hemoglobin 10.8. The patient's chemistry: Sodium is 141, the patient's BUN and creatinine are within normal range. The patient's creatine kinase is abnormal, it is 1343 but it was elevated to 4329 and the patient probably had rhabdomyolysis because he was on the floor for hours. The patient's LDH also was elevated at that time. His BNP is elevated to 1180, which is consistent with congestive cardiomyopathy. Total protein is 5.4, which is low. The albumin is 2.5, which is low. The patient needs nutritional support. We will continue all medications and follow up. His condition is improved. Juwan Neely MD
--- NOTE | 2017-11-05 12:46 | PN ---
DATE: 11/05/2017 CARDIOLOGY FOLLOWUP SUBJECTIVE: The patient is breathing better on IV dobutamine. No chest pain noted. PHYSICAL EXAMINATION: VITAL SIGNS: Blood pressure is 144/63, heart rate in the 60s. NECK: Negative JVD. LUNGS: Without rales. HEART: S1, S2. EXTREMITIES: Without edema. LABORATORY DATA: INR is 1.88. Chemistries: BUN and creatinine are unremarkable. Potassium is 4.0. IMPRESSION: 1. Non-ST elevation myocardial infarction. 2. Severe cardiomyopathy. 3. Congestive heart failure which is better on IV dobutamine. 4. Renal insufficiency. 5. Chronic atrial fibrillation. 6. History of pacemaker. PLAN: Given these findings, we will continue the IV dobutamine. The patient is scheduled for cardiac catheterization on Tuesday. Abdoulaye Church MD
[2017-11-05] MEDS: DOBUTamine 500mg/250ml D5W 500 MG/250 ML BAG IV PRN (22:40)
[2017-11-06] MEDS: Sodium Chloride 0.9% 1,000 ML IV SCH ×3 (04:11→20:00)
[2017-11-06] MEDS: Pantoprazole 40 mg EC Tab PO SCH ×2 (06:13→16:56)
[2017-11-06 08:07] LABS: BASO # 0.01 K/mm3 (0.0-2.0); BASO % 0.2 % (0.0-3.0); EOS # 0.1 (0.0-0.7); EOS % 1.9 % (1.5-5.0); GRAN # 2.32 (1.4-6.5); GRAN % 56.4 % (50.0-68.0); HEMOGLOBIN 10.2 g/dL (14.0-18.0); LYMPH # 1.3 (1.2-3.4); LYMPH % 30.8 % (22.0-35.0); MEAN CELL VOLUME 90.6 fl (80.0-105.0); MEAN CORPUSCULAR HEMOGLOBIN 29.9 pg (25.0-35.0); MEAN PLATELET VOLUME 11.2 fl (7.0-11.0); MONO # 0.4 (0.1-0.6); MONO % 10.7 % (1.0-6.0); RBC 3.41 10^6/uL (3.5-6.1); RED CELL DISTRIBUTION WIDTH 13.5 % (11.5-14.5); WHITE BLOOD COUNT 4.1 10^3/ul (4.5-11.0)
[2017-11-06 08:20] LABS: INR 1.61 (0.93-1.08); PARTIAL THROMBOPLASTIN TIME 30.7 Seconds (25.1-36.5); PROTHROMBIN TIME 18.7 SECONDS (9.4-12.5)
[2017-11-06 08:34] LABS: B-TYPE NATRIURETIC PEPTIDE 8450 pg/mL (0-450); TROPONIN I 0.03 ng/mL
[2017-11-06 08:50] LABS: ALB/GLOB RATIO 0.9 (1.1-1.8); ALBUMIN 2.4 g/dL (3.0-4.8); ALT/SGPT 48 U/L (7-56); AST/SGOT 77 U/L (17-59); BILIRUBIN,DIRECT 0.2 mg/dL (0.0-0.4); BLOOD UREA NITROGEN 11 mg/dL (7-21); CALCIUM 7.9 mg/dL (8.4-10.5); GFR AFRICAN-AMERICAN > 60; GFR NON-AFRICAN AMERICAN > 60; MAGNESIUM 1.4 mg/dL (1.7-2.2); URIC ACID 3.4 mg/dL (3.5-8.5)
[2017-11-06 09:11] LABS: CK-MB 2.9 ng/mL (0.0-3.6)
[2017-11-06] MEDS ORDERED: Enoxaparin 60 mg Syringe SC STA (10:47)
--- NOTE | 2017-11-06 11:12 | PN ---
DATE: The patient is in [facility], Room 377, bed 1. SUBJECTIVE: The patient was admitted after being evaluated in the Emergency Room. The patient was brought in because he was found on the floor and he had denied as to how he fell or not, but he was found by his son. The patient was short of breath and weak. The patient has not eaten for couple of days and apparently this history. The patient was evaluated this morning, he was lying down on bed. He is getting dobutamine drip for congestive cardiomyopathy. The patient has history of chronic cerebrovascular disease, coronary artery disease, hypertension, and hyperlipidemia. PHYSICAL EXAMINATION: VITAL SIGNS: His vital signs, at this time today, his blood pressure is 125/64, respirations are 20, his pulse is 71, his temperature is 98.5, and his O2 saturation is 92% on room air. LUNGS: Clinically, scattered crepitations are heard. Breath sounds are diminished. HEART: Normal sinus rhythm. Sinus tachycardia. ABDOMEN: Soft. Liver and spleen not palpable. CENTRAL NERVOUS SYSTEM: The patient is conscious, rational, oriented, answers all questions. Seemed to be very clear. He is able to get up and go to the bathroom and he is getting all his medications for his heart failure and he is on dobutamine drip, which is being monitored by Dr. Abdoulaye Church,who is the employee relations representative. LABORATORY DATA: His recent blood work done, the hemoglobin is 10.2. The patient's chemistry, the blood sugar is within normal range. The patient's liver enzymes not abnormal, but his creatinine kinase is elevated. The patient was lying on the floor. He probably had some evidence of rhabdomyolysis. His BNP is off course elevated, consistent with congestive cardiomyopathy. We will continue his current medications: The patient is currently on dobutamine drip. He is getting Plavix, pantoprazole, and aspirin. Diet is heart-healthy diet. Juwan Neely MD
--- NOTE | 2017-11-06 12:14 | PN ---
DATE: 11/06/2017 CARDIOLOGY FOLLOWUP NOTE SUBJECTIVE: The patient's breathing is stable. OBJECTIVE: VITAL SIGNS: Blood pressure is 125/64 and heart rate is in the 70s. NECK: Negative JVD. LUNGS: Without rales. HEART: S1 and S2. EXTREMITIES: Without edema. LABORATORY DATA: Hemoglobin is 10.2. BUN and creatinine are back to normal at 11 and 0.8. The INR is down to 1.61. IMPRESSION: 1. Severe cardiomyopathy. 2. High probability for coronary artery disease. 3. Low cardiac output syndrome improved with IV dobutamine. 4. Hlj-UC-rpscnnsbc myocardial infarction. 5. History of chronic atrial fibrillation. 6. History of pacemaker placement. PLAN: Given these findings, we will give the patient one dose of subcu Lovenox today. The patient is scheduled for cardiac catheterization in the morning. Abdoulaye Church MD
[2017-11-06] MEDS ORDERED: Potassium Phosphate 15 MMOLE in Sodium Chloride 0.9% 250 ML IVPB ONE (12:51)
[2017-11-06] MEDS: Magnesium Sulfate 2 GM in Sodium Chloride 0.9% 100 ML IVPB SCH ×2 (14:08→15:40)
--- NOTE | 2017-11-06 21:19 | PN ---
DATE: 11/03/2017 SUBJECTIVE: The patient was seen in room 377, bed 1. The patient is sitting up in the bed. The patient is having breakfast at this time. Overnight nurse's notes were reviewed. The patient was found to be alert, awake, responsive by the nurses, oriented x3. The patient had a Spaulding catheter placed, which was draining the urine. The patient is on telemetry. The patient is started on dobutamine drip as per Dr. Abdoulaye Church's order. PHYSICAL EXAMINATION VITAL SIGNS: T-max 98.4-97.6, blood pressure 115/67, 113/67, 110/55, 109/60, respiration 16 to 18 to 20 per minute, O2 sat 95%, 96%,94%. Intake and output; 600 and 700. HEENT: The patient's head examination normocephalic and atraumatic. HEENT examination shows pinkish conjunctivae. Anicteric sclerae. No oropharyngeal lesion. NECK: Positive kyphosis. CHEST: Positive left upper chest pacemaker noted. LUNGS: No audible crackle, rales or wheezing. CARDIOVASCULAR: S1 and S2, regular rhythm. Positive systolic murmur, left sternal border, left second intercostal space, right second intercostal space. ABDOMEN: Soft. Positive bowel sounds. No hepatosplenomegaly noted. No guarding. No rigidity. No rebound tenderness. GENITALIA: Male. Positive Spaulding catheter. RECTAL: Deferred. EXTREMITIES: Shows no swelling, no edema, no calf numbness, no Ema's signs. NEUROLOGIC: The patient is alert, awake, responsive, is able to move upper and lower extremity without assistance. MUSCULOSKELETAL: Shows a body mass index of 21. DIAGNOSTICS: On the 11/03/2017, WBC 4.4, hemoglobin/hematocrit 12.3/38.0 and platelet 70,000. PT/PTT 31.2 and INR 2.6. The chemistry from 11/03/2017, sodium 144, potassium 4.0, chloride 109, CO2 of 24, anion gap 15, BUN 52, creatinine 2.1, GFR 36, glucose 76, calcium 8.4, AST 218, ALT 63 and alk phos 75. LDH 1155. CPK 4328. Troponin is 0.09 came down from 0.13. Albumin 2.9. PTH is 65. Urinalysis noted. Blood cultures and urine cultures negative. The patient had CT abdomen and pelvis, CT head, ultrasound of the abdomen, hips and knees x-rays and spine x-rays and carotid ultrasound and a repeat CT head all of them were reviewed. The patient's EKG was done which shows paced rhythm. IMPRESSION AND PLAN: 1. Syncope, etiology undetermined. 2. Status post fall. 3. History of cerebral infarct. 4. Permanent pacemaker implant. 5. Questionable mechanical fall. 6. Acute renal failure and acute kidney injury. 7. Thrombocytopenia. 8. History of hypovitaminosis D. 9. History of hyperlipidemia. 10. Gait dysfunction. 11. Leukopenia. 12. Lactic acidosis. 13. Transaminitis. 14. Acute rhabdomyolysis with CPK greater than 10,000. 15. Questionable non-ST elevation myocardial infarction with elevated troponin. 16. Questionable congestive heart failure either diastolic or systolic, etiology undetermined. 17. Mild hypoalbuminemia. 18. Questionable secondary hyperparathyroidism with elevated PTH. 19. Borderline hyperuricemia. 20. Proteinuria, microscopic hematuria, pyuria, bacteriuria. 21. Cardiomegaly. 22. Left upper chest pacemaker. 23. Left insular cortex left frontal lobe hyperdense encephalomalacia consistent with old infarct. 24. Small vessel ischemic disease of the brain. 25. Bilateral anterior temporal lobe medial aspect hypodensities. 26. Ventriculomegaly with cerebral cortical atrophy of the brain. 27. Atherosclerotic calcification of the cavernous internal carotid artery. 28. Ethmoid sinus mucosal thickening. 29. Right sphenoid sinus air-fluid level. 30. Gallbladder wall thickening without cholelithiasis. 31. Bilateral renal pelviectasis with mild bilateral hydroureter. 32. Rectal fecal stasis and constipation. 33. Gastric wall thickening. 34. Possible gastritis versus incomplete gastric distention. 35. Urinary retention. 36. Possible cystitis with urinary bladder wall thickening. 37. Prostatomegaly. 38. Right-sided hydrocele. 39. Degenerative joint disease of the spine with L3-L4 anterolisthesis. 40. Abdominal aortic atherosclerotic calcification and iliac artery and femoral artery atherosclerotic changes. 41. Abdominal and pelvic mesenteric stranding, probably secondary obtuse inflammatory. 42. Bibasilar ground-glass densities and atelectasis. 43. Right apical atelectasis and parenchymal scarring. 44. Pericardial fluid with questionable hemopericardium. 45. Osteopenia. 46. Hypertrophic degenerative joint disease of the spine with thoracic spine kyphosis. 47. Questionable lymphadenopathy or extension of the complex pericardial fluid. 48. Mediastinal lymph nodes. 49. Left-sided pacemaker. 50. Questionable cholelithiasis with common bile duct hetro-echogenicity. 51. Degenerative joint disease of the bilateral hips. 52. Degenerative joint disease of the knees with proliferative hypertrophic changes of the femoral condyle and tibial plateau regions of both knees. 53. Bilateral 20%-39% internal carotid artery stenosis. 54. Left frontal anterior parietal lobe cystic encephalomalacia. 55. Chronic microangiopathic disease of the brain. 56. Cerebral cortical atrophy of the brain with ventriculomegaly. 57. Right maxillary sinus mucosal thickening. 58. Congestive heart failure, etiology undetermined. 59. Questionable choledocholithiasis. 60. History of chronic atrial fibrillation, Coumadin dependent. 61. Status post pacemaker versus automatic implantable cardioverter-defibrillator implant. 62. History of leukopenia and thrombocytopenia, history of anemia. 63. History of peripancreatic adenopathy, etiology undetermined. 64. History of proximal pancreatic body hypoattenuating mass. 65. Questionable and possible abnormal peripancreatic lymphadenopathy with periportal lymphadenopathy. 66. History of acute versus subacute left frontal lobe infarct in 2013. 67. History of dilated cardiomyopathy with ejection fraction of . 68. Pulmonary arterial hypertension with elevated right ventricular systolic pressure. 69. History of moderately dilated left ventricle, concentric left ventricle hypertrophy and severely impaired left ventricle systolic function. 70. Left ventricular global hypokinesis. 71. History of grade-3 irreversible restrictive diastolic dysfunction. 72. History of mildly reduced right ventricular systolic function. 73. History of permanent pacemaker implant. 74. Moderate aortic regurgitation. 75. Mild mitral regurgitation. 76. Moderate tricuspid regurgitation. 77. Deconditioning. 78. History of nonobstructive coronary artery disease. 79. History of cardiomyopathy with history of ventricular tachycardia. 80. History of noncompliance. 81. History of esophagogastroduodenoscopy and endoscopic ultrasonography with fine-needle aspiration of the peripancreatic and pancreatic body mass. 82. History of non-ST elevation myocardial infarction. 83. History of third-degree heart block, history of syncope, history of automatic implantable cardioverter-defibrillator implant. PLAN: At this time, the patient is to be continued on gentle IV fluid hydration. The patient is to be continued on dobutamine drip at 5 mcg/kg/minute. The patient home medication including Coumadin and Zestril. The patient's Coumadin 3 mg daily, Zocor 40 mg daily, Zestril 2.5 mg daily is held at this time. The patient has been ordered serial labs. CURRENT CONSULTATION: 1. Cardiology. 2. Neurology. 3. The patient is also requested to be evaluated by Gastroenterology. The patient has also been ordered HIDA scan for evaluation of possible the choledocholithiasis. At present, the patient is to be continued on above therapeutic intervention. The patient will be ordered physical therapy, ambulation therapy, gait training. The patient has been ordered out of bed to chair. The patient has been ordered physical therapy and occupational therapy. The patient has been ordered SCDs. The patient's case will be referred to TCU. The patient's further management will be dependent upon the patient's clinical condition, hemodynamic status and as per the patient response to therapeutic intervention as per the patient's diagnostic test results and as per recommendation by all the physician involved in the care of the patient. The patient was also updated about his condition, need for further diagnostic therapeutic intervention, need for further diagnostic testing was explained to the patient in layman's language. All questions concerned answered. Dictated and electronically signed, not read. Puneet Pickett MD MTDDagoberto
[2017-11-07] MEDS: Sodium Chloride 0.9% 1,000 ML IV SCH (02:34)
[2017-11-07] MEDS: Pantoprazole 40 mg EC Tab PO SCH (06:22)
[2017-11-07] MEDS: DOBUTamine 500mg/250ml D5W 500 MG/250 ML BAG IV PRN (06:22)
[2017-11-07 07:10] LABS: BASO # 0.01 K/mm3 (0.0-2.0); BASO % 0.2 % (0.0-3.0); EOS # 0.2 (0.0-0.7); EOS % 4.6 % (1.5-5.0); GRAN # 2.57 (1.4-6.5); GRAN % 56.5 % (50.0-68.0); HEMOGLOBIN 10.4 g/dL (14.0-18.0); LYMPH # 1.2 (1.2-3.4); LYMPH % 26.4 % (22.0-35.0); MEAN CELL VOLUME 90.5 fl (80.0-105.0); MEAN CORPUSCULAR HEMOGLOBIN 29.9 pg (25.0-35.0); MEAN PLATELET VOLUME 13.1 fl (7.0-11.0); MONO # 0.6 (0.1-0.6); MONO % 12.3 % (1.0-6.0); RBC 3.48 10^6/uL (3.5-6.1); RED CELL DISTRIBUTION WIDTH 13.6 % (11.5-14.5); WHITE BLOOD COUNT 4.6 10^3/ul (4.5-11.0)
[2017-11-07 07:26] LABS: TROPONIN I 0.03 ng/mL
[2017-11-07 07:34] LABS: ALB/GLOB RATIO 0.8 (1.1-1.8); ALBUMIN 2.6 g/dL (3.0-4.8); BILIRUBIN,DIRECT 0.3 mg/dL (0.0-0.4); URIC ACID 3.3 mg/dL (3.5-8.5)
[2017-11-07] MEDS ORDERED: Midazolam 2 MG/2 ML VIAL ONE ×2 (09:12→12:00)
[2017-11-07] MEDS ORDERED: Lidocaine 2% Inj (20ml) ONE (09:12)
[2017-11-07] MEDS ORDERED: Iodixanol 320 MG/ML 200 ML BOTTLE IV ONE (09:12)
[2017-11-07] MEDS ORDERED: HEPARIN SODIUM/NS 2,000 ML IV ONE (09:13)
[2017-11-07 09:28] LABS: INR 1.37 (0.93-1.08); PROTHROMBIN TIME 15.9 SECONDS (9.4-12.5)
[2017-11-07 09:29] LABS: CK-MB 2.4 ng/mL (0.0-3.6)
[2017-11-07] MEDS ORDERED: Potassium Phosphate 15 MMOLE in Dextrose 5% In Water 250 ML IVPB ONE (10:18)
[2017-11-07] MEDS ORDERED: Magnesium Sulfate 2 GM in Sodium Chloride 0.9% 100 ML IVPB ONE (10:18)
--- NOTE | 2017-11-07 11:08 | CP.PCM.PN ---
Subjective - Date & Time of Evaluation Date of Evaluation: 11/07/17 Time of Evaluation: 11:03 - Subjective Subjective: Medicine Progress Note: Patient seen and assessed at bedside in cath waiting area. No acute events noted overnight by nursing staff or patient. Patient is alert and oriented to person and place but not to time and event. Patient to have cardiac cath with Dr. Church today. He offers no complaints at this time, including fever, chills, headache, chest pain, SOB, abdominal pain, or any pain with urination. Objective - Vital Signs/Intake and Output Vital Signs (last 24 hours): Temp Pulse Resp BP Pulse Ox 98.7 F 72 20 120/61 92 L 11/07/17 06:00 11/07/17 10:00 11/07/17 06:00 11/07/17 06:22 11/07/17 06:00 Intake and Output: 11/07/17 11/07/17 06:59 18:59 Intake Total 120 Output Total 1550 Balance -1430 - Medications Medications: Current Medications Aspirin (Aspirin Chewable) 81 mg PO DAILY [facility] Last Admin: 11/07/17 09:22 Dose: Not Given Clopidogrel Bisulfate (Plavix) 75 mg PO DAILY [facility] Last Admin: 11/07/17 09:23 Dose: Not Given Dobutamine HCl/Dextrose (Dobutamine/Dextrose 5% 500mg/250ml) 500 mg in 250 mls @ 9.594 mls/hr IV .Q24H PRN; 5 MCG/KG/MIN PRN Reason: Shortness of Breath Last Admin: 11/07/17 06:22 Dose: 9.594 mls/hr Sodium Chloride (Sodium Chloride 0.9%) 1,000 mls @ 75 mls/hr IV .[id number] [facility] Last Admin: 11/07/17 02:34 Dose: 75 mls/hr Magnesium Sulfate 2 gm/ Sodium (Chloride) 104 mls @ 102 mls/hr IVPB ONCE ONE Stop: 11/07/17 11:19 Potassium Phosphate 15 mmole/ (Dextrose) 255 mls @ 42.5 mls/hr IVPB ONCE ONE Stop: 11/07/17 16:17 Pantoprazole Sodium (Protonix Ec Tab) 40 mg PO 0600,1600 [facility] Last Admin: 11/07/17 06:22 Dose: 40 mg - Labs Labs: 11/07/17 06:30 11/06/17 07:30 PT 15.9 SECONDS (9.4-12.5) H 11/07/17 09:00 INR 1.37 (0.93-1.08) H 11/07/17 09:00 APTT 30.7 Seconds (25.1-36.5) 11/06/17 07:30 - Constitutional Appears: Non-toxic, No Acute Distress - Head Exam Head Exam: ATRAUMATIC, NORMAL INSPECTION, NORMOCEPHALIC - Eye Exam Eye Exam: EOMI, Normal appearance, PERRL - ENT Exam ENT Exam: Mucous Membranes Moist, Normal Exam - Neck Exam Neck Exam: Full ROM, Normal Inspection. absent: Lymphadenopathy - Respiratory Exam Respiratory Exam: Clear to Ausculation Bilateral, NORMAL BREATHING PATTERN. absent: Rales, Rhonchi, Wheezes - Cardiovascular Exam Cardiovascular Exam: REGULAR RHYTHM, RRR, +S1, +S2 - GI/Abdominal Exam GI & Abdominal Exam: Soft, Normal Bowel Sounds - Extremities Exam Extremities Exam: Full ROM, Normal Capillary Refill, Pedal Edema (+1 bilaterally to lower calf). absent: Calf Tenderness, Joint Swelling, Normal Inspection, Tenderness - Back Exam Back Exam: NORMAL INSPECTION - Neurological Exam Neurological Exam: Alert, Awake, CN II-XII Intact. absent: Oriented x3 - Psychiatric Exam Psychiatric exam: Normal Affect, Normal Mood - Skin Skin Exam: Dry, Intact, Normal Color, Warm Assessment and Plan - Assessment and Plan (Free Text) Assessment: 87 year old male with a past medical history significant for previous CVA with residual LLE weakness, CAD, cardiomyopathy w/ AICD, Atrial Fibrillation (on coumadin), and PVD who came in status post fall of unknown etiology. He was found to have transaminitis and hyperbilirubinemia and an Abdominal U/S showed his CBD was dilated at 6mm with possible stone. HIDA currently pending. His renal function was poor upon arrival, likely secondary to rhabdomyolysis, but has since improved. Initial troponin was elevated at 0.13 but serial troponins since have all been negative and downtrending. Patient is on dobutamine to support heart function. Plan: 1. Syncope s/p Fall -Two Head CT's have shown no acute intracranial hemorrhages and left frontal/ parietal cystic encephalomalacia -Chest X-Ray showed cardiomegaly with no active pulmonary disease -Carotid Doppler revealed 20-39% stenosis of bilateral proximal ICA's -Echo showed severe systolic dysfunction and an LVEF of 17.9% -Spine, Knee and Hip X-Rays are all unremarkable -Initial troponin elevated at 0.13 but has since trended downwards with all repeat serial troponins negative -Orthostatic Vital Signs and Cameron-Hallpike negative -Patient to undergo cardiac cath with Dr. Church today -Continue Dobutamine drip for enhanced cardiac function to minimize cerebral hypoperfusion -Continue Normal Saline at 75mls/hr -Continue PT/OT, all recommendations appreciated -Cardiology and Neurology consulted, all recommendations appreciated 2. Elevated Liver Enzymes -CT Abdomen/Pelvis showed thickening of the gallbladder wall without discrete cholelithiasis -Abdominal U/S showed tiny focus of hyperechogenicity within the CBD with CBD measuring 6mm -HIDA Scan pending -Liver Enzymes and Bilirubin trending downwards since admission -Holding home Simvastatin until this issue is resolved -GI consulted, all recommendations appreciated 3. History of CAD -Continue ASA and Plavix 4. History of Atrial Fibrillation -Holding home Coumadin -Daily INR GI Prophylaxis: Protonix DVT Prophylaxis: SCD's Patient seen and case discussed with attending, Dr. Pickett.
[2017-11-07] MEDS ORDERED: Iohexol 350mgl/ml 50 ML ONE (12:02)
[2017-11-07] MEDS ORDERED: Digoxin 125 mcg (0.125 mg) Tab PO SCH (14:00)
--- NOTE | 2017-11-07 17:57 | CARDCATH ---
PROCEDURE DATE: 11/07/2017 HISTORY: The patient is an 87-year-old male who was found after a fall. His past medical history includes dilated cardiomyopathy. He was found to have a low cardiac output syndrome with elevated BUN and creatinine as well as weakness. He also complains of shortness of breath. He was placed on IV dobutamine with excellent result with normalization of his BUN and creatinine as well as much symptomatic relief. Because of his incomplete workup for his poor LV function, the patient was brought for cardiac catheterization given his borderline elevated troponins. PROCEDURE: Left heart catheterization with coronary arteriography, left ventriculogram, as well as supra-aortic valvular injection were performed. There were no complications. I performed moderate sedation which included the presence of an independent trained observer that assisted in monitoring the patient's level of consciousness and physiologic status. Through administration of Versed and fentanyl, my intra-service time was 15 minutes. The findings on catheterization revealed a left ventricle that was markedly dilated and diffusely hypokinetic. Estimated ejection fraction is 20%. Supra-aortic valvular injection revealed 1+ aortic insufficiency. His coronary anatomy revealed a right dominant circulation. The RCA revealed diffuse atherosclerosis without critical lesions. Left main artery was unremarkable. The LAD revealed diffuse atherosclerosis with a 50% stenosis in the midportion. The diagonal vessels revealed diffuse atherosclerosis without critical lesions. The circumflex artery and obtuse marginal branches were free of significant disease. Given these findings, the patient's findings revealed severe dilated cardiomyopathy with an EF of approximately 20%. Single-vessel CAD with a 50% mid LAD lesion. 1+ aortic insufficiency. Given these findings, the patient's treatment should be continued medical therapy. This should include aspirin, statin therapy, an ALLIE inhibitor and low-dose digoxin. Abdoulaye Church MD
--- NOTE | 2017-11-07 18:57 | CON ---
DATE: 11/07/2017 REQUESTING PHYSICIAN: Dr. Pickett. REASON FOR CONSULTATION: I have been asked to see this 87-year-old male who apparently fell at home and was not discovered for approximately 24 hours for elevated AST. Upon admission to the hospital, the patient was found to have an elevated CK of 771 and an elevated AST of 105. The ALT, alk phos, and total bilirubin were all normal. His troponin was elevated at 0.05. He denies any chest pain, shortness of breath, abdominal pain, nausea, vomiting, or rectal bleeding. There is no history of syncope. The patient does have a history of dilated cardiomyopathy with an ejection fraction of under 20%. He also has a history of permanent pacemaker. PAST MEDICAL HISTORY: As above. Again, he has a history of dilated cardiomyopathy. PAST SURGICAL HISTORY: Notable for permanent pacemaker placement. SOCIAL HISTORY: Denies cigarette smoking or alcohol use. FAMILY HISTORY: Noncontributory. REVIEW OF SYSTEMS: A 14 point review of systems is notable for weakness and fall at home. PHYSICAL EXAMINATION: GENERAL: Pleasant elderly male lying in bed in no acute distress. VITAL SIGNS: Reveal temperature of 98.7, blood pressure 120/61, heart rate 72. HEENT: Reveal sclerae to be white. Conjunctivae pink. NECK: Supple. CHEST: Reveal lungs to be clear. HEART: Exam reveals regular rate and rhythm. ABDOMEN: Soft, nontender, no mass. EXTREMITIES: Show no edema. He does have a permanent pacemaker under his left clavicle. LABORATORY DATA: Reveal chloride of 109, BUN 11, creatinine 0.8. AST is trending downward to 61. CK is trending downward to 278. CBC reveals white blood cell count 4.6, hemoglobin 10.4, platelet count of 83,000. IMPRESSION: An 87-year-old male fell at home who remained on the ground for about 24 hours and found to have rhabdomyolysis with elevated CPK. His elevated AST which is trending downward is secondary to rhabdomyolysis. His ALT, alkaline phosphatase were all normal. He does have a history of dilated cardiomyopathy with an ejection fraction of under 20% with a permanent pacemaker. He is anemic and found to have a low platelet count without any overt signs gastrointestinal bleeding. RECOMMENDATIONS: Given poor overall health and his poor ejection fraction, we will treat the patient conservatively in terms of his anemia. No further GI workup is planned. Again, his elevated AST is secondary to rhabdomyolysis. No further workup is needed for this. Angel Braden MD
--- NOTE | 2017-11-08 01:47 | PN ---
DATE: 11/07/2017 SUBJECTIVE: The patient is seen in the holding area of the cardiac catheterization. The patient is awaiting cardiac catheterization today by Dr. Church. The patient appears to be completely alert, awake, responsive. Oriented to person, place and time. The patient is seen lying in the stretcher. Patient is comfortable. PHYSICAL EXAMINATION: VITAL SIGNS: T-max 98.8. Heart rate is 68, 64, 65, 71, 63, blood pressure in the last 24 hours 132/77, 120/61, 116/64, 111/61, respiration is 18-21. O2 sat is 94%, 95%, 98%, 96%. Intake and output, intake 480 yesterday, output 700. Today's intake 120, output 1550. HEENT: The patient's head examination normocephalic, atraumatic. HEENT examination shows pinkish conjunctivae. Anicteric sclerae. No oropharyngeal lesion. NECK: No neck rigidity. No visible jugular venous distention. No audible carotid bruit. Chest: Examination is kyphosis. Positive left upper chest pacemaker noted. CARDIOVASCULAR: Shows S1, S2, regular rhythm. Positive systolic murmur, left sternal border, left second intercostal space, right second intercostal space. ABDOMEN: Soft. Positive bowel sounds. GENITALIA: Male. Positive Spaulding catheter noted. Draining clear urine. MUSCULOSKELETAL: Examination shows a body mass index of 21.5. NEUROLOGIC: The patient is alert, awake, responsive, is able to move upper and lower extremities without assistance. The patient is alert, awake, oriented x3. Motor strength is 5/5. Gait examination is not tested. Telemetry shows paced rhythm. DIAGNOSTICS: On 11/07/2017, WBC 4.6, hemoglobin/hematocrit 10.4 and 31.5, platelet 95,000. PT 15.9, INR 1.37. Sodium 138, potassium 3.7, chloride 109, CO2 of 25, anion gap 9, BUN 11, creatinine 0.8. GFR greater than 60, glucose 86, lactic acid is negative. Uric acid 3.3, calcium 2.4. LDH is down to 823. CPK is down to 278. BNP is 8390, total protein 5.7, albumin 2.6. Urinalysis noted. Blood and urine cultures negative. The patient's cardiac catheterization results were noted. Echocardiogram results from 11/03 reviewed,. IMPRESSION AND PLAN: 1. Status post fall. 2. Questionable syncope. 3. Severe symptomatic rhabdomyolysis. 4. Acute renal failure (resolving. 5. History of hypertension. 6. Gait dysfunction. 7. Transient hypoxemia. 8. Leukopenia, anemia, thrombocytopenia, and pancytopenia. 9. Coumadin dependent atrial fibrillation. 10. Hypophosphatemia. 11. Hypomagnesemia. 12. Transaminitis. 13. Elevated LDH. 14. Rhabdomyolysis with elevated CPK. 15. Acute recurrent systolic congestive heart failure with elevated BNP. 16. Protein malnutrition and hypoalbuminemia. 17. Possible [id number] myocardial infarction with elevated troponin. 18. Status post cardiac catheterization. 19. Lactic acidosis. 20. Gait dysfunction. 21. Deconditioning. 22. Questionable urinary retention. 23. Proteinuria, hematuria, bacteriuria. 24.. Left ventricular ejection fraction of 18% with dilated left ventricle, concentric left ventricular hypertrophy and severely impaired left ventricular function. 25. Grade 1 abnormal relaxation pattern. 26. Permanent pacemaker implant. 27. Moderately thickened aortic valve with mild aortic regurgitation. 28. Moderately thickened mitral valve with mild mitral regurgitation. 29. Tricuspid regurgitation with mild pulmonary hypertension with right ventricular systolic pressure of 42 mmHg. 30. Mildly enlarged aortic root. 31. End-stage dilated cardiomyopathy with left ventricular ejection fraction of 18%. 32. Low cardiac output syndrome. 33. Markedly dilated and diffusely hypokinetic left ventricle with ejection fraction of 20%. 34. 1+ aortic regurgitation. 35. Diffuse atherosclerosis of the right coronary artery without stenosis. 36. 50% stenosis of the mid left anterior descending artery. 37. Diffuse atherosclerosis of the diagonal vessels. 38. Single-vessel coronary artery disease with 50% stenosis of the mid left anterior descending artery. 39. 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 40. Onc-AP-connplwnc myocardial infarction with elevated troponin. 41. Mild residual left lower extremity weakness. 42. Chronic Coumadin-dependent atrial fibrillation. 43. Acute renal failure. 44. Transient cerebral hypoperfusion secondary to dilated cardiomyopathy. 45. Mechanical fall. 46. Psychosis. PLAN: At this time, the patient was cleared by relief cook for discharge in a.m. The patient was seen by Neurology, Cardiology, Gastroenterology. CURRENT MEDICATIONS: 1. Aspirin 81 daily. 2. Digoxin 0.125 mg daily. 3. The patient was given magnesium sulfate rider. 4. The patient was started on Zestril 2.5 daily. The patient is on heart healthy diet, out of bed, MIKA stockings, SCDs, physical therapy, occupational therapy, ambulation therapy ordered. The patient's case will be referred to Physical Therapy and Site Super[employer]ising Technical Operator for TCU evaluation. The patient is seen by Physical Therapy. Their recommendation is to consider TCU. The patient will be considered for discharge to TCU if accepted. Otherwise, the patient will be considered for discharge home with [facility] home health aid and home PT. The patient's current discharge medications will be Tylenol 650 q. 6 p.r.n., aspirin 81 mg daily, digoxin 0.125 mg daily, Drisdol 50,000 units weekly, Zestril 2.5 mg daily, and Coumadin 3 mg daily. At present, the patient is to be continued on above therapeutic intervention. The patient is also advised close outpatient followup in the office for patient's management of his medical condition and optimization of therapy. The patient understood and acknowledged all the details. The patient was also explained about his diagnosis and diagnostic test results and recommendation by all the physicians involved in the care of the patient. Dictated and electronically signed, not read. Signing off Puneet Pickett MD
[2017-11-08 06:28] VITALS: RESP 18; O2SAT 95
--- NOTE | 2017-11-08 12:15 | DS ---
PROGRESS NOTE AND DISCHARGE SUMMARY HISTORY OF PRESENT ILLNESS: The patient is seen in room 273, bed 1. The patient is seen lying in the bed. The patient is comfortable. Overnight, no adverse events were noted. The patient slept well overnight. The patient was found to be alert, awake, oriented x3. Right groin site showed no hematoma, no swelling, positive pulses. The patient denies chest pain. Denies shortness of breath. Denies nausea, vomiting, diarrhea or constipation. Denies hemoptysis. Denies fall. PHYSICAL EXAMINATION: VITAL SIGNS: T-max 98.8, pulse 62, 68, 63, blood pressure 112/56, respiration 18, O2 sat 95%. Telemetry monitoring shows paced rhythm. INTAKE AND OUTPUT: Intake is 850, output is 1500. Yesterday's input 120, output 1550. HEENT: Head examination normocephalic, atraumatic. Shows pinkish conjunctivae. Anicteric sclerae. No oropharyngeal lesion. No neck rigidity. Soft carotid bruit. No visible jugular venous distention noted. CHEST: Positive kyphosis noted.. No rales, crackles or wheezing noted. CARDIOVASCULAR: S1, S2, regular rhythm. Positive systolic murmur left sternal border, left second intercostal space. ABDOMEN: Soft. Positive bowel sounds. No hepatosplenomegaly noted. No guarding. No rigidity, rebound tenderness. GENITALIA: Male. RECTAL: Deferred. EXTREMITIES: Right groin examination is intact. VASCULAR: Palpable pulses. NEUROLOGICAL: The patient is alert, awake and oriented x3. Cranial nerves II through XII intact. LABORATORY DATA: None from today. FINAL IMPRESSION, PLAN AND DISCHARGE DIAGNOSES: 1. Syncope etiology undetermined. 2. Status post fall. 3. History of hypertension. 4. Atrial fibrillation. 5. History of cerebral infarct. 6. Rhabdomyolysis. 7. Acute renal failure (resolved). 8. Gait dysfunction. 9. History of cerebral infarct. 10. Leukopenia. 11. Granulocytosis. 12. Normocytic anemia. 13. Coumadin dependent atrial fibrillation. 14. Acute renal failure and acute kidney injury. 15. Hypophosphatemia, hypomagnesemia. 16. Transaminitis. 17. Rhabdomyolysis with elevated CPK. 18. Systolic congestive heart failure with elevated BNP. 19. Protein malnutrition. 20. Hypoalbuminemia. 21. Secondary hyperparathyroidism with elevated PTH. 22. Questionable acute non-ST elevation myocardial infarction with elevated troponin. 23. Proteinuria, microscopic hematuria, bacteriuria. 24. Status post cardiac catheterization. 25. Marked dilated and diffusely hypokinetic left ventricle with left ventricle ejection fraction of 20%. 26. 1+ aortic regurgitation. 27. Diffuse atherosclerosis of the right coronary artery. 28. Diffuse atherosclerosis of the left anterior descending artery with 50% stenosis of the mid left anterior descending artery. 29. Diffuse atherosclerosis of the diagonal coronary artery. 30. Single-vessel coronary artery disease with 50% mid left anterior descending artery lesion. 31. Urinary retention. 32. Prostatic hypertrophy. 33. Hypovitaminosis D. PLAN: At this time, the patient has been cleared for discharge by Dr. Abdoulaye Church. The patient will be discharge to TCU if accepted or otherwise discharged home with home PT and VNA. The patient is to follow up with Dr. Pickett within 1 week. DISCHARGE MEDICATIONS: If patient is discharged home are as follows; 1. Tylenol 650 q. 6 p.r.n. 2. Aspirin 81 mg daily. 3. Digoxin 0.125 mg daily. 4. Drisdol 50,000 units weekly. 5. Zestril 2.5 mg daily. 6. Flomax 0.4 mg daily. 7. Coumadin to be resumed at 3 mg daily. At present, if the patient is accepted to TCU, then patient will be discharged to TCU, otherwise the patient will be discharged home. Dictated and electronically signed, not read. Puneet Pickett MD
--- NOTE | 2017-11-08 15:02 | PN ---
DATE: 11/08/2017 CARDIOLOGY FOLLOWUP SUBJECTIVE: The patient is stable post cardiac catheterization. There are no critical coronary lesions. PHYSICAL EXAMINATION: VITAL SIGNS: Blood pressure is 95/53 with the heart rates in the 70s. NECK: Negative JVD. LUNGS: Without rales. HEART: With S1, S2. EXTREMITIES: Without edema. LABORATORY DATA: Laboratories were not drawn today. IMPRESSION: 1. Stable post cardiac catheterization. 2. Chronic atrial fibrillation. 3. End-stage dilated cardiomyopathy. 4. Congestive heart failure, which is better. 5. Status post fall. 6. Given these findings, the patient needs to be restarted on his Coumadin with low-dose aspirin, lisinopril and low-dose digoxin. Abdoulaye Church MD
[2017-11-08 18:19] VITALS: BP 90/50; PULSE 61; TEMP 98.2
--- NOTE | 2017-11-08 18:29 | PN ---
DATE: 11/08/2017 SUBJECTIVE: The patient is lying in bed, comfortable. He denies any abdominal pain, chest pain or shortness of breath. The patient had cardiac catheterization yesterday which showed single-vessel coronary artery disease with a 50% mid-LAD lesion. There is mild aortic insufficiency, the ejection fraction was estimated to be 20%. PHYSICAL EXAMINATION: VITAL SIGNS: Reveal temperature of 98, blood pressure 95/53, heart rate of 73. HEENT: Reveal sclerae to be white. Conjunctivae pale. NECK: Supple. CHEST: Lungs are clear. HEART: Reveals a regular rate and rhythm. ABDOMEN: Soft, nontender. No mass. EXTREMITIES: Show no edema. LABORATORY DATA: No new laboratory data are available. IMPRESSION: 1. Rhabdomyolysis. 2. Elevated AST secondary to rhabdomyolysis. 3. Single-vessel coronary artery disease with dilated cardiomyopathy. RECOMMENDATIONS: No further GI workup planned. The patient is to be discharged home on aspirin, Lanoxin and Zestril. Angel Braden MD
== END 2017-11-08 21:01 | DRG 682 ==
LOC: ED 17:15 → ERH 21:27 → 3RSO 11-03 02:48 → 2RSO 11-07 12:41
PROVIDERS: ADMIT Internal Medicine; ATTEND Internal Medicine
PROC: 4A023N7 Measurement of Cardiac Sampling and Pressure, Left Heart, Percutaneous Approach (ICD-10-PCS; principal; 2017-11-07)
PROC: B211YZZ Fluoroscopy of Multiple Coronary Arteries using Other Contrast (ICD-10-PCS; 2017-11-07)
PROC: B215YZZ Fluoroscopy of Left Heart using Other Contrast (ICD-10-PCS; 2017-11-07)
DX: N17.9 Acute kidney failure, unspecified (principal); I21.4 Non-ST elevation (NSTEMI) myocardial infarction; M62.82 Rhabdomyolysis; I50.21 Acute systolic (congestive) heart failure; E87.2 Acidosis; E46 Unspecified protein-calorie malnutrition; D61.818 Other pancytopenia; E83.42 Hypomagnesemia; I08.1 Rheumatic disorders of both mitral and tricuspid valves; I27.21 Secondary pulmonary arterial hypertension; I48.2 Chronic atrial fibrillation; I42.0 Dilated cardiomyopathy; I65.23 Occlusion and stenosis of bilateral carotid arteries; I11.0 Hypertensive heart disease with heart failure; E78.00 Pure hypercholesterolemia, unspecified; I69.344 Monoplegia of lower limb following cerebral infarction affecting left non-dominant side; I73.9 Peripheral vascular disease, unspecified; I25.10 Atherosclerotic heart disease of native coronary artery without angina pectoris; E78.5 Hyperlipidemia, unspecified; I35.1 Nonrheumatic aortic (valve) insufficiency; N40.0 Benign prostatic hyperplasia without lower urinary tract symptoms; E55.9 Vitamin D deficiency, unspecified; N43.3 Hydrocele, unspecified; K59.00 Constipation, unspecified; M17.0 Bilateral primary osteoarthritis of knee; M40.209 Unspecified kyphosis, site unspecified; N25.81 Secondary hyperparathyroidism of renal origin; R33.9 Retention of urine, unspecified; Z79.01 Long term (current) use of anticoagulants; I25.2 Old myocardial infarction; Z95.810 Presence of automatic (implantable) cardiac defibrillator

== ENCOUNTER 2017-11-08 21:01 | Inpatient (IN) | payer OTHER ==
[2017-11-08 22:53] VITALS: BMI 21.2
[2017-11-09 07:28] LABS: BASO # 0.01 K/mm3 (0.0-2.0); BASO % 0.2 % (0.0-3.0); EOS # 0.2 (0.0-0.7); EOS % 3.9 % (1.5-5.0); GRAN # 2.77 (1.4-6.5); GRAN % 56.5 % (50.0-68.0); HEMOGLOBIN 10.6 g/dL (14.0-18.0); LYMPH # 1.1 (1.2-3.4); LYMPH % 21.4 % (22.0-35.0); MEAN CELL VOLUME 91.4 fl (80.0-105.0); MEAN CORPUSCULAR HEMOGLOBIN 29.4 pg (25.0-35.0); MEAN CORPUSCULAR HGB CONC 32.1 g/dl (31.0-37.0); MEAN PLATELET VOLUME 12.3 fl (7.0-11.0); MONO # 0.9 (0.1-0.6); RBC 3.61 10^6/uL (3.5-6.1); RED CELL DISTRIBUTION WIDTH 13.5 % (11.5-14.5); WHITE BLOOD COUNT 4.9 10^3/ul (4.5-11.0)
[2017-11-09 07:34] LABS: INR 1.28 (0.93-1.08); PROTHROMBIN TIME 14.8 SECONDS (9.4-12.5)
--- NOTE | 2017-11-09 07:37 | CP.PCM.HP ---
History of Present Illness - History of Present Illness History of Present Illness: Mr. Quintanilla is an 87 year old male with a past medical history significant for CVA, HTN, HLD and Atrial Fibrillation who originally presented after a syncopal episode and associated fall. He was treated for rhabdomyolysis and completed a full workup for syncope. He is now in the TCU for continued strengthening and physical rehabilitation. There were no acute events overnight and the patient reports that he is feeling "very well". He is alert and oriented to person and place but not to time. He denies any complaints at this time including fever, chills, headache, chest pain, SOB, abdominal pain, N/V/D/C, urinary symptoms, skin changes or any numbness/tingling/weakness of any extremity. PMH: CVA, HTN, HLD and Atrial Fibrillation PSH: Pacemaker Placement Family History: Non-Contributory Social History: Denies tobacco, alcohol or illicit drug use; Retired [employer] Allergies: NKDA Home Medications: As per DEC PMD: Dr. Pickett Present on Admission - Present on Admission Any Indicators Present on Admission: No Review of Systems - Review of Systems Review of Systems: As stated in HPI, otherwise negative Past Patient History - Infectious Disease Hx of Infectious Diseases: None - Tetanus Immunizations Tetanus Immunization: Unknown - Past Social History Smoking Status: Never Smoked - CARDIAC Hx Cardiac Disorders: Yes Hx Congestive Heart Failure: Yes Hx Hypercholesterolemia: Yes Hx Hypertension: Yes - NEUROLOGICAL HX Cerebrovascular Accident: Yes - HEMATOLOGICAL/ONCOLOGICAL Hx Blood Transfusions: No Hx Blood Transfusion Reaction: No - MUSCULOSKELETAL/RHEUMATOLOGICAL Hx Falls: Yes - GASTROINTESTINAL Hx Gastrointestinal Disorders: No - GENITOURINARY/GYNECOLOGICAL Hx Genitourinary Disorders: Yes (urine retention) Hx Reproductive Disorders: Yes (BPH) - PSYCHIATRIC Hx Substance Use: No - SURGICAL HISTORY Hx Surgeries: Yes - ANESTHESIA Hx Anesthesia Reactions: No Hx Malignant Hyperthermia: No Meds Allergies/Adverse Reactions: Allergies Allergy/AdvReac Type Severity Reaction Status Date / Time No Known Allergies Allergy Verified 04/10/16 14:25 Physical Exam - Constitutional Appears: Non-toxic, No Acute Distress - Head Exam Head Exam: ATRAUMATIC, NORMAL INSPECTION, NORMOCEPHALIC - Eye Exam Eye Exam: EOMI, Normal appearance, PERRL Pupil Exam: NORMAL ACCOMODATION, PERRL - ENT Exam ENT Exam: Mucous Membranes Moist, Normal Exam - Neck Exam Neck exam: Positive for: Full Rom, Normal Inspection. Negative for: Lymphadenopathy - Respiratory Exam Respiratory Exam: Clear to Auscultation Bilateral, NORMAL BREATHING PATTERN. absent: Accessory Muscle Use, Chest Wall Tenderness, Decreased Breath Sounds, Prolonged Expiratory Phase, Rales, Rhonchi, Wheezes, Respiratory Distress, Stridor - Cardiovascular Exam Cardiovascular Exam: REGULAR RHYTHM, RRR, +S1, +S2 - GI/Abdominal Exam GI & Abdominal Exam: Normal Bowel Sounds, Soft - Extremities Exam Extremities exam: Positive for: full ROM, normal capillary refill, pedal pulses present. Negative for: calf tenderness, joint swelling, pedal edema, tenderness Additional comments: Cardiac cath insertion site without clinical signs of infection or developing hematoma - Back Exam Back exam: NORMAL INSPECTION - Neurological Exam Neurological exam: Alert, CN II-XII Intact - Psychiatric Exam Psychiatric exam: Normal Affect, Normal Mood - Skin Skin Exam: Dry, Intact, Normal Color, Warm Results - Vital Signs Recent Vital Signs: Last Vital Signs Temp 97.7 F 11/09/17 00:07 Pulse 65 11/09/17 00:07 Resp 18 11/09/17 00:07 BP 98/58 L 11/09/17 00:07 Pulse Ox 97 11/08/17 21:55 - Labs Result Diagrams: 11/09/17 06:50 11/09/17 06:50 Labs: Laboratory Results - last 24 hr 11/09/17 06:50 WBC 4.9 RBC 3.61 Hgb 10.6 L Hct 33.0 L MCV 91.4 MCH 29.4 MCHC 32.1 RDW 13.5 Plt Count 120 MPV 12.3 H Gran % 56.5 Lymph % (Auto) 21.4 L [place] % (Auto) 18.0 H Eos % (Auto) 3.9 Baso % (Auto) 0.2 Gran # 2.77 Lymph # (Auto) 1.1 L [place] # (Auto) 0.9 H Eos # (Auto) 0.2 Baso # (Auto) 0.01 Assessment & Plan - Assessment and Plan (Free Text) Assessment: 87 year old male with a past medical history significant for previous CVA with residual LLE weakness, CAD, cardiomyopathy w/ AICD, Atrial Fibrillation (on coumadin), and PVD who came in status post fall of unknown etiology. His renal function was poor upon arrival, likely secondary to rhabdomyolysis, but has since improved. He was taken to cardiac cath after he was found to have elevated troponin but was found to have no critical stenosis. He was then transferred to the TCU for continued rehabilitation. Plan: 1. Syncope s/p Fall -Cardiac cath revealed no critical stenosis and no interventions/stents were placed -Two Head CT's have shown no acute intracranial hemorrhages and left frontal/ parietal cystic encephalomalacia -Chest X-Ray showed cardiomegaly with no active pulmonary disease -Carotid Doppler revealed 20-39% stenosis of bilateral proximal ICA's -Echo showed severe systolic dysfunction and an LVEF of 17.9% -Spine, Knee and Hip X-Rays are all unremarkable -Initial troponin elevated at 0.13 but has since trended downwards with all repeat serial troponins negative -Orthostatic Vital Signs and [place]-Hallpike negative -Continue PT/OT, all recommendations appreciated -Cardiology consulted, all recommendations appreciated 2. Elevated Liver Enzymes (Resolved) -CT Abdomen/Pelvis showed thickening of the gallbladder wall without discrete cholelithiasis -Abdominal U/S showed tiny focus of hyperechogenicity within the CBD with CBD measuring 6mm -Liver Enzymes and Bilirubin WNL -Holding home Simvastatin until this issue is resolved -GI consulted, all recommendations appreciated 3. History of CAD -Continue ASA 4. History of Atrial Fibrillation -Continue home Digoxin and Coumadin -Daily INR 5. History of BPH -Continue home Flomax -Urology consulted, all recommendations appreciated 6. History of HTN -Continue home Lisinopril GI Prophylaxis: Protonix DVT Prophylaxis: SCD's Patient seen and case discussed with attending, Dr. Pickett. - Date & Time Date: 11/09/17 Time: 07:37
[2017-11-09 08:07] LABS: ALB/GLOB RATIO 0.9 (1.1-1.8); ALBUMIN 2.8 g/dL (3.0-4.8); ALT/SGPT 40 U/L (7-56); AST/SGOT 40 U/L (17-59); BILIRUBIN,DIRECT 0.3 mg/dL (0.0-0.4); BLOOD UREA NITROGEN 18 mg/dL (7-21); GFR AFRICAN-AMERICAN > 60; GFR NON-AFRICAN AMERICAN > 60; MAGNESIUM 1.6 mg/dL (1.7-2.2)
[2017-11-09] MEDS: Magnesium Sulfate 2 GM in Sodium Chloride 0.9% 100 ML IVPB SCH ×2 (10:07→13:53)
[2017-11-09] MEDS: Digoxin 125 mcg (0.125 mg) Tab PO SCH (13:53)
--- NOTE | 2017-11-09 14:25 | PN ---
DATE: 11/09/2017 SUBJECTIVE: The patient was seen in [facility]. He is sitting in chair comfortably. Denies any chest pain, abdominal pain, dizziness, syncope or falls. He denies any nausea or vomiting. OBJECTIVE: VITAL SIGNS: Reveal temperature of 97.7, blood pressure of 90/48, and heart rate of 64. HEENT: Reveal sclerae to be white. Conjunctivae pink. NECK: Supple. CHEST: Lungs are clear. HEART: Reveals regular rate and rhythm. ABDOMEN: Soft and nontender. EXTREMITIES: Show no edema. LABORATORY DATA: Reveal hemoglobin of 10.6, white blood cell count of 4.9, and platelet count of 120,000. AST, ALT, and alkaline phosphatase were all normal. IMPRESSION: 1. Status post fall with rhabdomyolysis. 2. Increased AST secondary to rhabdomyolysis. 3. Dilated cardiomyopathy with an ejection fraction of around 20%. 4. Anemia. RECOMMENDATIONS: Continue subacute rehab for deconditioning given the patient's poor cardiac function and advanced age. There are no plans for endoscopy or colonoscopy in this 87-year-old gentleman. Angel Braden MD
[2017-11-09] MEDS: Pantoprazole 20 mg EC Tab PO SCH (17:59)
[2017-11-10] MEDS: Pantoprazole 20 mg EC Tab PO SCH ×2 (05:56→17:51)
[2017-11-10 07:34] LABS: BASO # 0.01 K/mm3 (0.0-2.0); BASO % 0.2 % (0.0-3.0); EOS # 0.1 (0.0-0.7); EOS % 1.7 % (1.5-5.0); GRAN # 3.38 (1.4-6.5); HEMOGLOBIN 10.5 g/dL (14.0-18.0); LYMPH # 0.9 (1.2-3.4); LYMPH % 17.7 % (22.0-35.0); MEAN CELL VOLUME 91.4 fl (80.0-105.0); MEAN CORPUSCULAR HEMOGLOBIN 30.1 pg (25.0-35.0); MEAN CORPUSCULAR HGB CONC 32.9 g/dl (31.0-37.0); MEAN PLATELET VOLUME 11.3 fl (7.0-11.0); MONO # 0.8 (0.1-0.6); MONO % 15.4 % (1.0-6.0); RBC 3.49 10^6/uL (3.5-6.1); RED CELL DISTRIBUTION WIDTH 13.5 % (11.5-14.5); WHITE BLOOD COUNT 5.2 10^3/ul (4.5-11.0)
[2017-11-10 07:39] LABS: INR 1.28 (0.93-1.08); PARTIAL THROMBOPLASTIN TIME 29.7 Seconds (25.1-36.5); PROTHROMBIN TIME 14.8 SECONDS (9.4-12.5)
[2017-11-10 08:03] LABS: ALB/GLOB RATIO 0.9 (1.1-1.8); ALBUMIN 3.1 g/dL (3.0-4.8); ALT/SGPT 35 U/L (7-56); AST/SGOT 37 U/L (17-59); BILIRUBIN,DIRECT 0.3 mg/dL (0.0-0.4); BLOOD UREA NITROGEN 21 mg/dL (7-21); CALCIUM 9.5 mg/dL (8.4-10.5); GFR AFRICAN-AMERICAN > 60; GFR NON-AFRICAN AMERICAN 57; MAGNESIUM 1.9 mg/dL (1.7-2.2)
--- NOTE | 2017-11-10 08:58 | HP ---
HISTORY OF PRESENT ILLNESS: The patient is an 87-year-old male, this patient is now admitted to TCU after the patient was hospitalized on acute medical service from 11/02/2017 to 11/08/2017. The patient is now seen in room number 322, bed 1. The patient is comfortable. Please refer to the history and physical examination and discharge summary from the hospitalization of 11/02/2017 to 11/08/2017 for further details. The patient is seen today in room number 322, bed 1. The patient is seen lying in the bed. The patient was made to set up in the bed. The patient is alert, awake and responsive. Overnight nurses notes were reviewed. The patient still is requiring Spaulding catheter placement. PHYSICAL EXAMINATION VITAL SIGNS: The patient's T-Max is 97.5, pulse is 71, blood pressure is 102/56 and 98/58, respirations are 16 to 18, and O2 saturation is 97%. HEENT: The patient's head examination shows normocephalic and atraumatic. HEENT exam shows pinkish pale conjunctivae. Anicteric sclerae. No oropharyngeal lesion. NECK: No neck rigidity. CHEST: Positive kyphosis. Positive left upper chest AICD noted. Positive kyphosis. LUNGS: Examination shows no rales, crackles or wheezing. CARDIOVASCULAR: Examination shows S1 and S2, regular rate and rhythm. Positive systolic murmur at the left sternal border, right second intercostal space and left second intercostal space. ABDOMEN: Soft. Positive bowel sounds. No hepatosplenomegaly noted. No guarding. No rigidity. No rebound tenderness noted. GENITALIA: Male. RECTAL: Examination is deferred. EXTREMITIES: Shows no pitting edema, no calf tenderness, and no Homans' sign. NEUROLOGIC: The patient is alert, awake, and responsive. He is able to move upper and lower extremities without assistance. Gait examination is deferred. Cranial nerves II through XII limited. MUSCULOSKELETAL: Shows a body mass index of 21. VASCULAR: Palpable pulses. DIAGNOSTIC STUDIES: WBC of 4.9, hemoglobin and hematocrit of 10.6 and 33, and platelet of 120. PT and PTT are 14.8 and 29.0. Sodium of 136, potassium of 4.6, chloride of 104, CO2 of 26, anion gap of 10, BUN of 18, and creatinine of 1.1. GFR is greater than 60. Glucose of 98 and calcium of 9.0. Phosphorus of 3.3 and magnesium of 1.6. LFTs are normal. Albumin is 2.8. IMPRESSION: 1. Deconditioning. 2. Gait dysfunction. 3. Acute renal failure. 4. Severe symptomatic rhabdomyolysis. 5. Status post mechanical fall. 6. Transaminitis secondary to rhabdomyolysis. 7. 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 8. Hypotension. 9. Urinary retention, requiring Spaulding catheter placement. 10. Normocytic anemia. 11. Coumadin dependent atrial fibrillation. 12. Hypomagnesemia. 13. Hyperbilirubinemia. 14. Hypertension. 15. Status post syncope. 16. Transaminitis 16. Atrial fibrillation. 17. Prostatic hypertrophy. PLAN: At this time, the patient is to be admitted to Transitional Care Unit. The patient has been ordered Physical Therapy, Occupational Therapy, ambulation therapy, and gait training. Repeat CMP, LFTs, magnesium, phosphorus, CBC, PT, and PTT has ordered. CURRENT CONSULTATIONS: 1. Cardiology. 2. Gastroenterology. 3. Urology for evaluation of urinary retention. CURRENT MEDICATIONS: 1. Aspirin 81 mg p.o. daily. 2. Coumadin 3 mg daily. 3 Flomax 0.4 mg daily. 4. Digoxin 0.125 mg p.o. daily. 5. The patient was started on ProAmatine 2.5 mg three times a day. 6. Protonix 40 mg daily. 7. Zestril 2.5 mg daily. DIET: The patient is on heart-healthy diet. ACTIVITIES: The patient has been ordered out of bed to chair. The patient has been ordered MIKA stockings. DATE OF SERVICE/DICTATION AND ADMISSION: 11/09/2017 Dictated and electronically signed, not read. Signing off Puneet Pickett MD Puneet Pickett MD
--- NOTE | 2017-11-10 11:58 | PN ---
DATE: The patient is in the TCU. Without shortness of breath, without chest pain. PHYSICAL EXAMINATION VITAL SIGNS: Blood pressure 95/52, heart rate in the 60s. NECK: Negative JVD. LUNGS: Without rales. CARDIOVASCULAR: S1, S2. EXTREMITIES: Without edema. DATA: Hemoglobin is 10.5. Chemistries, BUN and creatinine are unremarkable. IMPRESSION 1. Status post intravenous dobutamine for congestive heart failure. 2. End-stage dilated cardiomyopathy. 3. Nonobstructive coronary artery disease. 4. Dyspnea, which is improved. Given these findings, we will continue physical therapy in the TCU with his medication, which includes aspirin, low-dose digoxin, and lisinopril. Continue Coumadin for atrial fibrillation. Abdoulaye Church MD
[2017-11-10] MEDS: Digoxin 125 mcg (0.125 mg) Tab PO SCH (14:17)
--- NOTE | 2017-11-10 23:07 | PN ---
DATE: 11/10/2017 SUBJECTIVE: The patient is seen in room 322, bed 1. The patient is seen out of bed to chair. The patient is lying in the bed. The patient still requires Spaulding. Overnight nurse's notes were reviewed. The patient was found to be alert, awake, responsive. PHYSICAL EXAMINATION: VITAL SIGNS: T-max 98.7-98.1, pulse 62-65, blood pressure 100/57, respirations 16-18, O2 sat 98%. Intake output, output is 1500. HEAD: Normocephalic, atraumatic. EENT: Shows pinkish pale conjunctivae. Anicteric sclerae. No oropharyngeal lesion. No neck rigidity. CHEST: Kyphosis. Positive left upper chest AICD noted. LUNGS: Show no rales, crackles, or wheezing. CARDIOVASCULAR: S1 and S2. Regular rhythm. Positive systolic murmur left sternal border, right second intercostal space, left second intercostal space. ABDOMEN: Soft. Positive bowel sounds. No hepatosplenomegaly. No guarding. No rigidity. No rebound tenderness. GENITALIA: Male. Positive Spaulding catheter. EXTREMITIES: Show no pitting edema, no calf numbness, no Homans sign. MUSCULOSKELETAL: Shows a body mass index of 21. NEUROLOGIC: The patient is alert, awake, responsive, follows command. Moves upper and lower extremities without assistance. Gait examination is not tested. PSYCHIATRIC: Negative. DIAGNOSTICS DATA: On 11/10/2017, WBC 5.2, hemoglobin and hematocrit 10.5 and 32, platelets 125. PT and PTT 14.8 and 29.7. Sodium 135, potassium 5.0, chloride 103, CO2 of 28, anion gap 10, BUN 21, creatinine 1.2, GFR greater than 60, glucose 97, calcium 9.5, phosphorus 3.5, magnesium is 1.9. LFTs are normal. IMPRESSION: 1. Deconditioning. 2. Gait dysfunction. 3. Hypotension. 4. Normocytic anemia. 5. Coumadin-dependent atrial fibrillation. 6. Status post acute renal failure. 7. Rhabdomyolysis. 8. Hypomagnesemia. 9. Prostatic hypertrophy. 10. Borderline hyperkalemia. 11. End-stage dilated cardiomyopathy. 12. Nonobstructive coronary artery disease. PLAN: At this time; 1. The patient will be given a voiding trial. 2. The patient is on serial labs. CURRENT CONSULTATION: Cardiology, Gastroenterology, and Urology. CURRENT MEDICATIONS: 1. Aspirin 81 mg daily. 2. Coumadin 3 mg daily. 3. Flomax 0.4 mg daily. 4. Digoxin 0.125 mg daily. 5. Midodrine (ProAmatine) 2.5 mg 3 times a day. 6. Protonix 20 mg twice a day. 7. Zestril 2.5 mg daily. The patient has been ordered MIKA shar, SCDs. The patient has been ordered out of bed to chair. The patient will be continued on TCU stay with physical therapy, ambulation therapy, and gait training. We will review the patient's clinical status tomorrow regarding the voiding trial. Dictated and electronically signed, not read. Puneet Pickett MD
[2017-11-11] MEDS: Pantoprazole 20 mg EC Tab PO SCH ×2 (05:58→17:00)
[2017-11-11 07:16] LABS: BASO # 0.01 K/mm3 (0.0-2.0); BASO % 0.2 % (0.0-3.0); EOS # 0.1 (0.0-0.7); GRAN # 3.31 (1.4-6.5); GRAN % 59.5 % (50.0-68.0); HEMOGLOBIN 10.4 g/dL (14.0-18.0); LYMPH # 1.3 (1.2-3.4); LYMPH % 23.4 % (22.0-35.0); MEAN CELL VOLUME 91.6 fl (80.0-105.0); MEAN CORPUSCULAR HGB CONC 32.7 g/dl (31.0-37.0); MEAN PLATELET VOLUME 11.7 fl (7.0-11.0); MONO # 0.8 (0.1-0.6); MONO % 14.9 % (1.0-6.0); RBC 3.47 10^6/uL (3.5-6.1); RED CELL DISTRIBUTION WIDTH 13.5 % (11.5-14.5); WHITE BLOOD COUNT 5.6 10^3/ul (4.5-11.0)
[2017-11-11 07:29] LABS: INR 1.26 (0.93-1.08); PROTHROMBIN TIME 14.5 SECONDS (9.4-12.5)
[2017-11-11 07:46] LABS: ALB/GLOB RATIO 0.9 (1.1-1.8); ALBUMIN 3.1 g/dL (3.0-4.8); ALT/SGPT 28 U/L (7-56); AST/SGOT 39 U/L (17-59); BILIRUBIN,DIRECT 0.4 mg/dL (0.0-0.4); BLOOD UREA NITROGEN 27 mg/dL (7-21); CALCIUM 9.6 mg/dL (8.4-10.5); GFR AFRICAN-AMERICAN > 60; GFR NON-AFRICAN AMERICAN 57; MAGNESIUM 1.7 mg/dL (1.7-2.2)
--- NOTE | 2017-11-11 08:38 | CON ---
DATE: 11/10/2017 CHIEF COMPLAINT: Status post fall. HISTORY OF PRESENT ILLNESS: This is an 87-year-old male, who is seen on the Transitional Care Unit at [facility]. The patient was recovering after a fall and is now receiving rehabilitation. During his hospitalization, the patient was noted to have urinary retention. At some point, a Spaulding catheter was placed and it remains in place currently. The patient is a poor historian. He is unable to answer whether the catheter was in place prior to this admission o if this is a new finding. He denies any prior voiding issues. He reports no prior prostate issues. Denies history of BPH or prostate cancer and he does report that he thinks he was voiding well prior to coming to the hospital. PAST MEDICAL HISTORY: Includes CVA, hypertension, hypercholesterolemia, atrial fibrillation. HOME MEDICATIONS: Included vitamin D, Zocor, Keflex, Zestril and Coumadin. ALLERGIES: NO KNOWN DRUG ALLERGIES. Currently on Coumadin, Flomax, digoxin, ProAmatine and Zestril. FAMILY HISTORY: Noncontributory. SOCIAL HISTORY: Patient denies any smoking or EtOH use. REVIEW OF SYSTEMS: A 12-point review of systems was obtained from the patient. He reports some weakness and lethargy, some difficulty ambulating, otherwise feels well and denies any other acute symptoms. PHYSICAL EXAMINATION: GENERAL: The patient is seen in his room. He is awake and alert. He is lying in bed, just finished eating his breakfast. VITAL SIGNS: He is afebrile. Temperature of 98.1, pulse of 62, BP 100/57, respirations 18. NECK: Supple. There is no adenopathy. CHEST: Revealed normal inspiratory effort. CARDIAC: Showed positive S1, S2. There was no peripheral edema noted. ABDOMEN: Soft, nontender, nondistended. There is no hepatosplenomegaly or costovertebral angle tenderness. GENITOURINARY: Phallus is normal. There is a Spaulding catheter in place draining clear colored urine. Scrotum is normal. Testes are bilaterally descended, nontender, no masses. Epididymides are normal. EXTREMITIES: There is no cyanosis or edema noted. LABORATORY DATA: WBC count normal, creatinine 1.2 with a GFR greater than 60. Urine culture from 11/03/2017 showed no growth. Urinalysis showed large blood on 11/02/2017, 25-30 RBCs, 0-2 WBCs. On radiologic exam, the patient had a CT scan of the chest, abdomen and pelvis on 11/02/2017, which showed there is bilateral renal pelvocaliectasis with mild bilateral hydroureter, no obstructing stones were visualized. There is moderate fecal material in the rectum, wall thickening of the stomach, Spaulding catheter was seen in the bladder and nonspecific bladder wall thickening. The patient had a PSA of 2.1 on 11/03/2017. IMPRESSION AND PLAN: This is an 87-year-old male with history of cerebrovascular accident, who had falls at home. Urologically, patient is currently stable with an indwelling Spaulding catheter. The patient has been started on Flomax and I would plan on a voiding trial. Postvoid residual will need to be checked. The patient had mild bilateral fullness of both renal systems likely secondary to bladder outlet obstruction, which has now been relieved with the Spaulding catheter. If the patient is unable to void with the Spaulding catheter removed, a new Spaulding catheter should be placed and we will need to discuss further plans. Plan will be to consider a cystoscopy and possible laser vaporization; however, the patient is 87 years old with multiple medical issues, likely a better plan would be to maintain him with an indwelling Spaulding catheter which should be changed monthly. Thank you for Allowing me to participate in the care of this patient. We will follow him with you. Jesse Grijalva MD
[2017-11-11] MEDS: POLYETHYLENE GLYCOL 3350 17 GM/Dose PACKET PO SCH (11:06)
[2017-11-11] MEDS: Digoxin 125 mcg (0.125 mg) Tab PO SCH (13:35)
--- NOTE | 2017-11-11 13:51 | CP.PCM.PN ---
Subjective - Date & Time of Evaluation Date of Evaluation: 11/11/17 Time of Evaluation: 13:44 - Subjective Subjective: Medicine Progress Note: Patient seen and assessed at bedside in TCU. No acute events noted overnight by nursing staff or patient. Patient is alert and oriented to person and place but not to time and event. He offers no complaints at this time, including fever, chills, headache, chest pain, SOB, abdominal pain, or any pain with urination. Objective - Vital Signs/Intake and Output Vital Signs (last 24 hours): Temp Pulse Resp BP Pulse Ox 98.2 F 60 18 98/51 L 96 11/11/17 05:28 11/11/17 05:28 11/11/17 05:28 11/11/17 11:06 11/11/17 05:28 Intake and Output: 11/11/17 11/11/17 06:59 18:59 Intake Total 240 Output Total 3150 Balance -2910 - Medications Medications: Current Medications Aspirin (Aspirin Chewable) 81 mg PO 0800 [facility] PRN Reason: Protocol Last Admin: 11/11/17 08:14 Dose: 81 mg Digoxin (Lanoxin) 0.125 mg PO 1400 [facility] PRN Reason: Protocol Last Admin: 11/11/17 13:35 Dose: 0.125 mg Lisinopril (Zestril) 2.5 mg PO DAILY [facility] PRN Reason: Protocol Last Admin: 11/11/17 11:06 Dose: Not Given Midodrine (Proamatine) 5 mg PO TID [facility] Last Admin: 11/11/17 13:35 Dose: 5 mg Pantoprazole Sodium (Protonix Ec Tab) 20 mg PO 0600,1600 [facility] Last Admin: 11/11/17 05:58 Dose: 20 mg Pneumococcal Polyvalent Vaccine (Pneumovax 23 Vaccine) 0.5 ml IM .ONCE ONE Stop: 11/15/17 10:01 Polyethylene Glycol (Miralax) 17 gm PO DAILY [facility] Last Admin: 11/11/17 11:06 Dose: 17 gm Tamsulosin HCl (Flomax) 0.4 mg PO 1830 [facility] PRN Reason: Protocol Last Admin: 11/10/17 17:53 Dose: 0.4 mg Warfarin Sodium (Coumadin) 3 mg PO 1800 [facility] PRN Reason: Protocol Last Admin: 11/10/17 17:49 Dose: 3 mg - Labs Labs: 11/11/17 06:45 11/11/17 06:45 PT 14.5 SECONDS (9.4-12.5) H 11/11/17 06:45 INR 1.26 (0.93-1.08) H 11/11/17 06:45 APTT 27.0 Seconds (25.1-36.5) 11/11/17 06:45 - Constitutional Appears: Non-toxic, No Acute Distress - Head Exam Head Exam: ATRAUMATIC, NORMAL INSPECTION, NORMOCEPHALIC - ENT Exam ENT Exam: Mucous Membranes Moist, Normal Exam - Neck Exam Neck Exam: Full ROM, Normal Inspection. absent: Lymphadenopathy - Respiratory Exam Respiratory Exam: Clear to Ausculation Bilateral, NORMAL BREATHING PATTERN - Cardiovascular Exam Cardiovascular Exam: REGULAR RHYTHM, +S1, +S2. absent: Murmur - GI/Abdominal Exam GI & Abdominal Exam: Soft, Normal Bowel Sounds. absent: Tenderness - Extremities Exam Extremities Exam: Full ROM, Normal Capillary Refill, Normal Inspection. absent : Calf Tenderness, Joint Swelling, Pedal Edema, Tenderness - Back Exam Back Exam: Full ROM, NORMAL INSPECTION. absent: CVA tenderness (L), CVA tenderness (R) - Neurological Exam Neurological Exam: Alert, Awake, Oriented x3 - Psychiatric Exam Psychiatric exam: Normal Affect, Normal Mood - Skin Skin Exam: Dry, Intact, Normal Color, Warm Assessment and Plan - Assessment and Plan (Free Text) Assessment: 87 year old male with a past medical history significant for previous CVA with residual LLE weakness, CAD, cardiomyopathy w/ AICD, Atrial Fibrillation (on coumadin), and PVD who came in status post fall of unknown etiology. His renal function was poor upon arrival, likely secondary to rhabdomyolysis, but has since improved. He was taken to cardiac cath after he was found to have elevated troponin but was found to have no critical stenosis. He was then transferred to the TCU for continued rehabilitation. Plan: 1. Syncope s/p Fall -Two Head CT's have shown no acute intracranial hemorrhages and left frontal/ parietal cystic encephalomalacia -Carotid Doppler revealed 20-39% stenosis of bilateral proximal ICA's -Orthostatic Vital Signs and Charlotte-Hallpike negative -Continue PT/OT, all recommendations appreciated 2. End Stage Dilated Cardiomyopathy -Echo showed severe systolic dysfunction and an LVEF of 17.9% -Started Midodrine 5mg PO TID -Continue low dose Digoxin -Heart Healthy Diet -Cardiology consulted, all recommendations appreciated 3. History of CAD -Continue ASA 4. History of Atrial Fibrillation -Continue Coumadin -Daily PT/INR/PTT 5. History of BPH -Will need indwelling morales catheter as voiding trial failed with 800ml of post void residual -Continue home Flomax -Urology consulted, all recommendations appreciated 6. History of HTN -Continue home Lisinopril 7. History of Constipation -Continue Miralax GI Prophylaxis: Protonix DVT Prophylaxis: SCD's Patient seen and case discussed with attending, Dr. Pickett.
--- NOTE | 2017-11-11 14:18 | PN ---
DATE: 11/11/2017 SUBJECTIVE: The patient is seen in physical therapy room. The patient is doing stationary bike. Overnight nurse's notes were reviewed. The patient was given a voiding trial, but patient could not tolerate it and patient had extreme difficulty urinating. The patient's abdomen was distended with discomfort. Bladder scan shows more than 850 mL of urine. The patient's Spaulding catheter has to be re-inserted. PHYSICAL EXAMINATION: VITAL SIGNS: T-max 98.2; pulse 60; blood pressure is 98/51, 110/78; respirations 18; O2 sat is 96%. Intake and output, output is 3150. HEAD: Normocephalic, atraumatic. EENT: Shows pinkish pale conjunctivae. Anicteric sclerae. No oropharyngeal lesion. No neck rigidity. CHEST: Kyphosis. Positive left upper chest AICD. LUNGS: Shows no rales, crackles, or wheezing. CARDIOVASCULAR: S1, S2, regular rhythm. Positive systolic murmur, left sternal border, left second intercostal space. ABDOMEN: Soft. Positive bowel sounds. Slight suprapubic dullness. No hepatosplenomegaly noted. No guarding. No rigidity. No rebound tenderness. No costovertebral angle tenderness. EXTREMITIES: No pitting edema, no calf numbness, no Homans signs. MUSCULOSKELETAL: Shows body mass index of 21.2. NEUROLOGIC: Cranial nerves II through XII intact and limited. Gait examination, not tested. The patient is ambulating with physical therapy. DIAGNOSTIC DATA: On 11/11/2017, WBC 5.6, hemoglobin and hematocrit 10.4 and 31.8, platelets 141. PT 14.5, INR 1.26, PTT 27. Sodium 136, potassium 4.5, chloride 103, CO2 of 28, anion gap 10, BUN 27, creatinine 1.2, GFR greater than 60, glucose 102, calcium 9.6, phosphorus 3.5, magnesium 1.7. LFTs are normal. The patient was seen by Urology, recommendations noted. Recommend to continue with the Spaulding catheter and if patient fails the voiding trial, patient needs to be discharged on indwelling Spaulding with outpatient Urology followup and intervention regarding possible cystoscopy. IMPRESSION: 1. Gait dysfunction. 2. Deconditioning. 3. Recurrent urinary retention, requiring indwelling Spaulding catheter. 4. Prostatic hypertrophy. 5. Questionable syncope, status post fall. 6. Urinary retention. 7. Possible bladder outlet obstruction. 8. Normocytic anemia. 9. Coumadin-dependent atrial fibrillation. 10. Borderline hyperkalemia. 11. Prerenal kidney injury. 12. Hypomagnesemia. PLAN: At this time, the patient will be ordered to repeat labs. CURRENT CONSULTATION: 1. Cardiology. 2. GI. 3. Urology. CURRENT MEDICATIONS: Aspirin 81 daily, Coumadin 3 mg daily, Flomax 0.4 mg daily, digoxin 0.125 daily, MiraLax 17 g daily, the patient's ProAmatine is increased to 5 mg 3 times a day, Protonix 40 mg daily, Zestril 2.5 mg daily. The patient is on heart healthy diet, out of bed, MIKA stockings, SCDs. At present, the patient will be continued on TCU stay with close followup. Dictated and electronically signed, not read. Puneet Pickett MD
--- NOTE | 2017-11-11 18:35 | PN ---
DATE: 11/11/2017 CARDIOLOGY FOLLOWUP SUBJECTIVE: The patient remains in the TCU. No shortness of breath. No chest pain. PHYSICAL EXAMINATION: VITAL SIGNS: Blood pressure is 98/51, the heart rates in the 60s. NECK: Negative JVD. LUNGS: Without rales. HEART: S1, S2. EXTREMITIES: Without edema. LABORATORY DATA: Hemoglobin is 10.4. Chemistries: BUN and creatinine 27 and 1.2. IMPRESSION: 1. End-stage dilated cardiomyopathy. 2. Resolution of congestive heart failure. 3. Improved forward outflow after a trial of IV dobutamine. 4. Nonobstructive coronary artery disease. 5. Resolution of dyspnea. Given these findings, we will continue Coumadin for his atrial fibrillation as well as digoxin and lisinopril. Abdoulaye Church MD
[2017-11-12] MEDS: Pantoprazole 20 mg EC Tab PO SCH ×2 (05:44→18:02)
[2017-11-12 07:33] LABS: INR 1.27 (0.93-1.08)
[2017-11-12] MEDS: POLYETHYLENE GLYCOL 3350 17 GM/Dose PACKET PO SCH (11:00)
[2017-11-12] MEDS: Digoxin 125 mcg (0.125 mg) Tab PO SCH (15:23)
--- NOTE | 2017-11-13 01:43 | PN ---
DATE: 11/12/2017 SUBJECTIVE: The patient is seen lying in the bed in room 322, bed 1. The patient is sleeping. The patient was awakened. The patient was advised to sit up in the bed. The patient was found to be alert, awake, responsive. Overnight nurse's notes were reviewed. No adverse events documented. The patient slept well overnight. OBJECTIVE: VITAL SIGNS: T-max 98.2; heart rate 67, 74, 84, 74, 67; blood pressure is 110/78, 98/51, 99/52, 105/53; respiration 80 to 20, O2 sat 97% to 96%. Intake/output, the patient had a Spaulding catheter placed, yesterday's output is 3150. HEENT: The patient's head examination, normocephalic, atraumatic. HEENT examination shows pinkish pale conjunctivae. Anicteric sclerae. No oropharyngeal lesion. No neck rigidity. Soft carotid bruit. CHEST: Kyphosis. Positive left upper chest AICD. LUNGS: Shows no rales, crackles or wheezing. CARDIOVASCULAR: Shows S1 and S2, regular rhythm. Positive systolic murmur, left sternal border, right second intercostal space, left second intercostal space. ABDOMEN: Soft. Positive bowel sounds. No hepatosplenomegaly noted. No guarding. No rigidity or rebound tenderness. GENITALIA: Male. RECTAL: Examination deferred. Positive Spaulding catheter noted. Positive urine drainage noted in the Spaulding catheter. No costovertebral angle tenderness noted. MUSCULOSKELETAL: Shows a body mass index of 21. NEUROLOGIC: The patient is alert, awake, oriented x3. Cranial nerves II through XII intact. Gait examination not tested. VASCULAR: Palpable pulses. LABORATORY DATA: October 12, PT 14.0, INR 1.7. Chemistry is none from today. IMPRESSION AND PLAN: 1. Urinary retention requiring Spaulding catheter drainage. 2. End-stage dilated cardiomyopathy. 3. Improvement of the systolic congestive heart failure after IV dobutamine trial. 4. Nonobstructive coronary artery disease. 5. Status post fall. 6. Gait dysfunction. 7. Decreased body mass index. 8. Hypotension. 9. Hypomagnesemia. 10. Mild prerenal kidney injury. 11. Normocytic anemia. 12. Deconditioning. 13. Coumadin requiring atrial fibrillation. 14. Prostate hypertrophy. 15. Constipation. PLAN: At this time, the patient has been ordered out of bed, physical therapy, occupational therapy, ambulation therapy, gait training. The patient is seen by physical therapist. The patient's last physical therapy evaluation recommendation is home with physical therapy upon completion of TCU. CURRENT MEDICATIONS: Aspirin 81 mg daily, Coumadin 3 mg daily, Flomax 0.4 mg daily, digoxin 0.125 mg daily, MiraLax 17 g daily, midodrine 5 mg 3 times a day, Protonix 20 mg twice a day, Zestril 2.5 mg daily. The patient will be continued on above therapeutic intervention. The patient will be continued on physical therapy, occupational therapy, ambulation therapy, gait training. Dictated and electronically signed, not read. Puneet Pickett MD
[2017-11-13] MEDS: Pantoprazole 20 mg EC Tab PO SCH ×2 (05:29→17:22)
[2017-11-13 07:21] LABS: INR 1.35 (0.93-1.08); PARTIAL THROMBOPLASTIN TIME 28.7 Seconds (25.1-36.5); PROTHROMBIN TIME 15.6 SECONDS (9.4-12.5)
[2017-11-13] MEDS: POLYETHYLENE GLYCOL 3350 17 GM/Dose PACKET PO SCH (09:59)
[2017-11-13] MEDS: Digoxin 125 mcg (0.125 mg) Tab PO SCH (14:59)
--- NOTE | 2017-11-14 01:47 | PN ---
DATE: 11/13/2017 SUBJECTIVE: The patient is seen again, lying in room 322, bed 1. The patient is alert, awake, responsive. The patient does not appear to be in any distress. Overnight nurse's notes were reviewed. The patient slept well without any adverse event. OBJECTIVE: GENERAL: The patient was found to be alert, awake, oriented x3. VITAL SIGNS: T-max 98.4-98.7, heart rate 64-68-60, blood pressure 123/68, 96/55, 102/43, 105/53, respiratory rate 18-20, O2 sat 96%. Intake and output are not documented correctly. HEENT: Head; normocephalic, atraumatic. Eyes, pinkish pale conjunctivae. Anicteric sclerae. No oropharyngeal lesion. No jugular venous distention. Soft carotid bruit. CHEST: Shows positive left upper chest AICD. Positive kyphosis. LUNGS: Shows no rales, crackles or wheezing. CARDIOVASCULAR: S1, S2, regular rhythm. Positive systolic murmur in the left sternal border, left second intercostal space. ABDOMEN: Soft. No hepatosplenomegaly noted. No guarding. No rigidity. No rebound tenderness. No masses palpable. No costovertebral angle tenderness. GENITALIA: Male. Positive Spaulding catheter, draining urine more than 500 mL present in the bag. MUSCULOSKELETAL: Shows a body mass index of 21. NEUROLOGICAL: Cranial nerves II-XII limited. Gait is not tested. VASCULAR: Palpable pulses. DIAGNOSTICS: On November 13; PT is 15.6, INR 1.35. IMPRESSION: 1. Deconditioning. 2. Gait dysfunction. 3. Transient hypotension. 4. End-stage dilated ischemic cardiomyopathy. 5. Coumadin dependent atrial fibrillation. 6. Normocytic anemia. 7. Status post syncope. 8. Status post fall. 9. Status post rhabdomyolysis. 10. Hypomagnesemia. 11. Status post automatic implantable cardioverter-defibrillator implant. 12. History of cerebral infarct. 13. Constipation. 14. Prostatic hypertrophy. 15. Hypertension. PLAN: At this time, the patient will be monitored very closely on the PT/INR. The patient will continue on the transitional care unit till approved days. Consultation with Cardiology and Gastroenterology. CURRENT MEDICATIONS: Aspirin 81 mg daily, Coumadin 3 mg daily, Flomax 0.4 mg daily, digoxin 0.125 mg daily, MiraLax 17 g daily, Midodrine 5 mg three times a day which may need to be titrated up if the patient's blood pressure does not reach the goal faye, Protonix 40 mg daily, Zestril 2.5 mg daily. Heart-healthy diet, out of bed, MIKA stockings, SCDs, physical therapy, occupational therapy ordered. The patient has been seen by Physical Therapy today. RECOMMENDATIONS: Discharge recommendation, home with services. The patient has been admitted to Transitional Care Unit from 11/08/2017. The patient will be ordered repeat complete labs for the morning. The patient's case will be referred to [facility] for discharge planning and discharge needs at home. Dictated and electronically signed, not read. Puneet Pickett MD
[2017-11-14] MEDS ORDERED: cefTRIAXone 1 gm 1 GM/100 ML BAG IVPB STA (05:42)
[2017-11-14] MEDS: Pantoprazole 20 mg EC Tab PO SCH ×2 (05:59→17:25)
[2017-11-14 07:01] LABS: BASO # 0.02 K/mm3 (0.0-2.0); BASO % 0.3 % (0.0-3.0); EOS % 0.5 % (1.5-5.0); GRAN # 4.91 (1.4-6.5); GRAN % 66.2 % (50.0-68.0); LYMPH # 1.2 (1.2-3.4); LYMPH % 16.6 % (22.0-35.0); MEAN CELL VOLUME 92.1 fl (80.0-105.0); MEAN CORPUSCULAR HEMOGLOBIN 29.4 pg (25.0-35.0); MEAN CORPUSCULAR HGB CONC 31.9 g/dl (31.0-37.0); MEAN PLATELET VOLUME 10.9 fl (7.0-11.0); MONO # 1.2 (0.1-0.6); MONO % 16.4 % (1.0-6.0); RBC 3.4 10^6/uL (3.5-6.1); RED CELL DISTRIBUTION WIDTH 13.3 % (11.5-14.5); WHITE BLOOD COUNT 7.4 10^3/ul (4.5-11.0)
[2017-11-14 07:13] LABS: ALB/GLOB RATIO 0.8 (1.1-1.8); ALBUMIN 3.1 g/dL (3.0-4.8); ALT/SGPT 21 U/L (7-56); AST/SGOT 31 U/L (17-59); BILIRUBIN,DIRECT 0.4 mg/dL (0.0-0.4); BLOOD UREA NITROGEN 27 mg/dL (7-21); CALCIUM 9.2 mg/dL (8.4-10.5); GFR AFRICAN-AMERICAN > 60; GFR NON-AFRICAN AMERICAN 57; MAGNESIUM 1.7 mg/dL (1.7-2.2); URIC ACID 5.1 mg/dL (3.5-8.5)
[2017-11-14 07:17] LABS: INR 1.45 (0.93-1.08); PARTIAL THROMBOPLASTIN TIME 28.7 Seconds (25.1-36.5); PROTHROMBIN TIME 16.8 SECONDS (9.4-12.5)
[2017-11-14 07:57] LABS: URINE APPEARANCE TURBID (CLEAR); URINE BILIRUBIN NEGATIVE (NEGATIVE); URINE BLOOD TRACE-INTACT (NEGATIVE); URINE COLOR YELLOW (YELLOW); URINE GLUCOSE (UA) NEGATIVE (NEGATIVE); URINE LEUKOCYTE ESTERASE MODERATE Leu/uL (NEGATIVE); URINE NITRATE NEGATIVE (NEGATIVE); URINE PROTEIN NEGATIVE mg/dL (<30 mg/dL); URINE UROBILINOGEN >=8.0 E.U./dL (<1 E.U./dL)
[2017-11-14 08:32] LABS: URINE RBC 0 - 2 /hpf (0-2)
[2017-11-14 08:33] LABS: URINE BACTERIA FEW (NEG); URINE WBC TNTC /hpf (0-6)
[2017-11-14] MEDS ORDERED: Vancomycin 1gm in NS 250ml 1 GM/250 ML BAG IVPB STA (10:14)
[2017-11-14] MEDS ORDERED: Cefepime 1gm in NS 100ml 1 GM/100 ML BAG IVPB SCH ×2 (10:15→14:00)
--- NOTE | 2017-11-14 10:46 | RAD ---
HISTORY: temp 101 COMPARISON: 11/02/2017 TECHNIQUE: Chest PA and lateral FINDINGS: LUNGS: No active pulmonary disease. PLEURA: No significant pleural effusion identified. No pneumothorax apparent. CARDIOVASCULAR: Normal. OSSEOUS STRUCTURES: No significant abnormalities. VISUALIZED UPPER ABDOMEN: Normal. OTHER FINDINGS: Duo lead pacemaker IMPRESSION: No active disease.
--- NOTE | 2017-11-14 12:29 | CP.PCM.CON ---
History of Present Illness - History of Present Illness History of Present Illness: 87 year old male with PMH of CVA, HTN, dyslipidemia, atrial fibrillation, S/P pacemaker placement was initially brought in [place] [facility] [place] because of syncope and work up has been done for it. He is now transferred to [facility] for continued medical therapy and physical rehab. He developed fever this morning and Infectious diseases consult is requested to further evaluate and manage. He has no rhinorrhea, no sore throat, no SOB, no cough currently, no diarrhea, no abdominal pain, no dysuria, no nausea or vomiting. Review of Systems - Review of Systems All systems: reviewed and no additional remarkable complaints except (as per HPI ) Past Patient History - Infectious Disease Hx of Infectious Diseases: None - Tetanus Immunizations Tetanus Immunization: Unknown - Past Social History Smoking Status: Never Smoked - CARDIAC Hx Cardiac Disorders: Yes Hx Congestive Heart Failure: Yes Hx Hypercholesterolemia: Yes Hx Hypertension: Yes - NEUROLOGICAL HX Cerebrovascular Accident: Yes - HEMATOLOGICAL/ONCOLOGICAL Hx Blood Transfusions: No Hx Blood Transfusion Reaction: No - MUSCULOSKELETAL/RHEUMATOLOGICAL Hx Falls: Yes - GASTROINTESTINAL Hx Gastrointestinal Disorders: No - GENITOURINARY/GYNECOLOGICAL Hx Genitourinary Disorders: Yes (urine retention) Hx Reproductive Disorders: Yes (BPH) - PSYCHIATRIC Hx Substance Use: No - SURGICAL HISTORY Hx Surgeries: Yes - ANESTHESIA Hx Anesthesia Reactions: No Hx Malignant Hyperthermia: No Meds Allergies/Adverse Reactions: Allergies Allergy/AdvReac Type Severity Reaction Status Date / Time No Known Allergies Allergy Verified 11/09/17 20:39 - Medications Medications: Current Medications Acetaminophen (Tylenol 325mg Tab) 650 mg PO Q6H PRN PRN Reason: FOR FEVER >=99.5F Aspirin (Aspirin Chewable) 81 mg PO 0800 [facility] PRN Reason: Protocol Last Admin: 11/14/17 08:21 Dose: 81 mg Digoxin (Lanoxin) 0.125 mg PO 1400 [facility] PRN Reason: Protocol Last Admin: 11/13/17 14:59 Dose: 0.125 mg Cefepime HCl (Maxipime 1gm) 1 gm in 100 mls @ 100 mls/hr IVPB Q12 [facility] PRN Reason: Protocol Lisinopril (Zestril) 2.5 mg PO DAILY [facility] PRN Reason: Protocol Last Admin: 11/13/17 10:00 Dose: Not Given Midodrine (Proamatine) 5 mg PO TID [facility] Last Admin: 11/13/17 17:23 Dose: 5 mg Pantoprazole Sodium (Protonix Ec Tab) 20 mg PO 0600,1600 [facility] Last Admin: 11/14/17 05:59 Dose: 20 mg Pneumococcal Polyvalent Vaccine (Pneumovax 23 Vaccine) 0.5 ml IM .ONCE ONE Stop: 11/15/17 10:01 Polyethylene Glycol (Miralax) 17 gm PO DAILY [facility] Last Admin: 11/13/17 09:59 Dose: 17 gm Tamsulosin HCl (Flomax) 0.4 mg PO 1830 [facility] PRN Reason: Protocol Last Admin: 11/13/17 17:47 Dose: 0.4 mg Warfarin Sodium (Coumadin) 4 mg PO 1800 [facility] PRN Reason: Protocol Physical Exam - Constitutional Appears: Non-toxic, Chronically Ill - Head Exam Head Exam: NORMAL INSPECTION - Respiratory Exam Respiratory Exam: Decreased Breath Sounds - Cardiovascular Exam Cardiovascular Exam: +S1, +S2 - GI/Abdominal Exam GI & Abdominal Exam: Soft. absent: Tenderness Results - Vital Signs Recent Vital Signs: Last Vital Signs Temp 101.1 F H 11/14/17 05:58 Pulse 64 11/13/17 16:23 Resp 18 11/13/17 16:23 BP 123/68 11/13/17 16:23 Pulse Ox 96 11/13/17 16:23 - Labs Result Diagrams: 11/14/17 06:30 11/14/17 06:30 Labs: Laboratory Results - last 24 hr 11/13/17 11/14/17 11/14/17 08:30 06:30 06:30 WBC 7.4 D RBC 3.40 L Hgb 10.0 L Hct 31.3 L MCV 92.1 MCH 29.4 MCHC 31.9 RDW 13.3 Plt Count 147 MPV 10.9 Gran % 66.2 Lymph % (Auto) 16.6 L Menard % (Auto) 16.4 H Eos % (Auto) 0.5 L Baso % (Auto) 0.3 Gran # 4.91 Lymph # (Auto) 1.2 Menard # (Auto) 1.2 H Eos # (Auto) 0.0 Baso # (Auto) 0.02 PT 16.8 H INR 1.45 H APTT 28.7 Sodium Potassium Chloride Carbon Dioxide Anion Gap BUN Creatinine Est GFR ( Amer) Est GFR (Non-Af Amer) Random Glucose Lactic Acid Uric Acid Calcium Phosphorus Magnesium Total Bilirubin Direct Bilirubin AST ALT Alkaline Phosphatase Total Protein Albumin Globulin Albumin/Globulin Ratio Urine Color Urine Appearance Urine pH Ur Specific [place] Urine Protein Urine Glucose (UA) Urine Ketones Urine Blood Urine Nitrate Urine Bilirubin Urine Urobilinogen Ur Leukocyte Esterase Urine RBC Urine WBC Urine Bacteria Digoxin 0.7 L 11/14/17 11/14/17 11/14/17 06:30 07:11 07:18 WBC RBC Hgb Hct MCV MCH MCHC RDW Plt Count MPV Gran % Lymph % (Auto) Menard % (Auto) Eos % (Auto) Baso % (Auto) Gran # Lymph # (Auto) Menard # (Auto) Eos # (Auto) Baso # (Auto) PT INR APTT Sodium 138 Potassium 4.2 Chloride 104 Carbon Dioxide 25 Anion Gap 13 BUN 27 H Creatinine 1.2 Est GFR ( Amer) > 60 Est GFR (Non-Af Amer) 57 Random Glucose 146 H Lactic Acid Uric Acid 5.1 Calcium 9.2 Phosphorus 2.9 Magnesium 1.7 Total Bilirubin 0.7 Direct Bilirubin 0.4 AST 31 ALT 21 Alkaline Phosphatase 48 Total Protein 6.9 Albumin 3.1 Globulin 3.8 Albumin/Globulin Ratio 0.8 L Urine Color Yellow Urine Appearance Turbid Urine pH 7.0 Ur Specific [place] 1.015 Urine Protein Negative Urine Glucose (UA) Negative Urine Ketones Negative Urine Blood Trace-intact H Urine Nitrate Negative Urine Bilirubin Negative Urine Urobilinogen >=8.0 Ur Leukocyte Esterase Moderate H Urine RBC 0 - 2 Urine WBC Tntc Urine Bacteria Few Digoxin 0.9 11/14/17 10:50 WBC RBC Hgb Hct MCV MCH MCHC RDW Plt Count MPV Gran % Lymph % (Auto) Menard % (Auto) Eos % (Auto) Baso % (Auto) Gran # Lymph # (Auto) Menard # (Auto) Eos # (Auto) Baso # (Auto) PT INR APTT Sodium Potassium Chloride Carbon Dioxide Anion Gap BUN Creatinine Est GFR ( Amer) Est GFR (Non-Af Amer) Random Glucose Lactic Acid 1.5 Uric Acid Calcium Phosphorus Magnesium Total Bilirubin Direct Bilirubin AST ALT Alkaline Phosphatase Total Protein Albumin Globulin Albumin/Globulin Ratio Urine Color Urine Appearance Urine pH Ur Specific [place] Urine Protein Urine Glucose (UA) Urine Ketones Urine Blood Urine Nitrate Urine Bilirubin Urine Urobilinogen Ur Leukocyte Esterase Urine RBC Urine WBC Urine Bacteria Digoxin Assessment & Plan - Assessment and Plan (Free Text) Plan: Assessment systemic inflammatory response syndrome, R/O sepsis source to be determined CVA HTN dyslipidemia atrial fibrillation S/P pacemaker placement Plan Patient given a dose of IV Vanco and started Cefepime pending CXR, PCT, blood, urine cx, rapid Influenza test will monitor clinically
[2017-11-14] MEDS: POLYETHYLENE GLYCOL 3350 17 GM/Dose PACKET PO SCH (12:53)
--- NOTE | 2017-11-14 13:23 | PN ---
DATE: 11/14/2017 SUBJECTIVE: The patient is without symptoms, working out with physical therapy without issues. OBJECTIVE VITAL SIGNS: Blood pressure is 123/68, heart rate in the 60s. NECK: Negative JVD. LUNGS: Without rales. HEART: S1, S2. EXTREMITIES: Without edema. LABORATORY DATA: Hemoglobin is 10. Chemistries: BUN and creatinine are 27 and 1.2. IMPRESSION 1. Stable angina. 2. Coronary artery disease. 3. History of history of dilated cardiomyopathy. 4. Resolution of congestive heart failure. 5. No dyspnea noted. Given these findings, the patient is doing well on his current medications, which include an ALLIE inhibitor. Continue physical therapy. Abdoulaye Church MD
[2017-11-14] MEDS: Digoxin 125 mcg (0.125 mg) Tab PO SCH (14:08)
[2017-11-14] MEDS: Cefepime 1gm in NS 100ml 1 GM/100 ML BAG IVPB SCH (21:58)
--- NOTE | 2017-11-15 03:43 | PN ---
DATE: 11/14/2017 SUBJECTIVE: The patient was seen in room 322, bed 1. Overnight nurse's notes were reviewed. The patient was found to be alert, awake, responsive. The patient spiked a fever of 101 oral temperature early this morning. The patient was evaluated by the house physician, Dr. Lisa Rodriguez. The patient had blood cultures, Tylenol was given. The patient was given a dose of Rocephin 1 g. According to the nurses' note, the patient has been found to be alert, awake, oriented x2 to 3, episodic confusion noted. The patient has periods of forgetfulness. but not disorientation. The patient was found to be alert, awake and x2 with episodic forgetfulness. PHYSICAL EXAMINATION: VITAL SIGNS: T-max 101.1, down to 98.9; heart rate 65, 73; blood pressure is 100/46, 123/68, 196/55; respiration 20, O2 sat 96%. HEENT: Head examination normocephalic, atraumatic. HEENT examination shows pinkish pale conjunctivae. Anicteric sclerae. Questionable soft carotid bruit. No jugular venous distention. CHEST: Kyphosis. Positive left upper chest AICD. LUNGS: Shows no rales, crackles or wheezing. CARDIOVASCULAR: S1 and S2, regular rhythm. Positive systolic murmur, left sternal border, left second intercostal space, right second intercostal space. ABDOMEN: Soft. Positive bowel sounds. No hepatosplenomegaly noted. No guarding. No rigidity. No rebound tenderness. No costovertebral angle tenderness. GENITALIA: Male. Positive Spaulding catheter. EXTREMITY: No pitting edema, no calf numbness, no Homans' sign. MUSCULOSKELETAL: Examination shows a body mass index of 21. NEUROLOGIC: The patient is alert, awake, oriented x 2, episodic forgetfulness noticed. Patient is unable to remember today's date, year, month. Gait examination is not tested. VASCULAR: Palpable pulses. DIAGNOSTICS: 11/14/2017, WBC 7.4, hemoglobin/hematocrit 10 and 31.3, platelet 147. PT 16.8, INR 1.45. Sodium 138, potassium 4.2, chloride 104, CO2 of 25, anion gap 13, BUN 27, creatinine 1.2, GFR greater than 60, glucose 146, lactic acid 1.5, uric acid 5.1, calcium 9.2, phosphorus 2.9, magnesium 1.7. LFTs are normal. Procalcitonin level is less than 0.05. Urinalysis, pH 7.0, specific gravity 1.015, trace blood, moderate leukocyte esterase, few bacteria, too numerous to count WBC. Digoxin level 0.7 and 0.9. Influenza was negative. Chest x-ray was done, which showed positive . IMPRESSION AND PLAN: 1. Fever of 101 degrees Fahrenheit. 2. Questionable systemic inflammatory response syndrome. 3. Questionable urinary tract infection. 4. Hypotension. 5. Normocytic anemia. 6. Coumadin dependent requiring atrial fibrillation. 7. Prerenal kidney injury. 8. Microscopic hematuria, pyuria, bacteriuria. 9. Urinary retention requiring indwelling Spaulding catheter. 10. Gait dysfunction. 11. Deconditioning. 12. Dilated cardiomyopathy. 13. Episodic forgetfulness, etiology undetermined. PLAN: At this time, the patient has been ordered repeat labs. Blood and urine cultures ordered. CURRENT CONSULTATION: 1. Cardiology. 2. Gastroenterology. 3. Infectious Disease. 4. Urology. CURRENT MEDICATIONS: 1. Aspirin 81 mg daily. 2. Coumadin increased to 4 mg daily. 3. Flomax 0.4 mg daily. 4. Digoxin 0.125 mg p.o. daily. 5. Cefepime 1 g IV q. 12. 6. MiraLax 17 g daily. 7. Midodrine 5 mg 3 times a day which will be increased to 10 mg 3 times a day to control low blood pressure. 8. The patient is on Protonix 40 mg daily. 9. Tylenol 650 q. 6 hours p.r.n. for temperature greater than or equal to 99.5. 10. The patient was given a dose of vancomycin 1 g. 11. The patient is on Zestril 2.5 mg daily. The patient has been ordered out of bed, MIKA stockings, SCDs, physical therapy, occupational therapy, ambulation therapy, gait training ordered. In addition, I have ordered a Neurology consultation for evaluation of episodic forgetfulness. 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 At present, the patient will be continued on the above therapeutic intervention. Neurology consultation with Dr. Gardenia Rodriguez ordered. In addition, the patient will also be ordered Aricept 5 mg at bedtime for further treatment of the patient's forgetfulness and memory dysfunction. Dictated and electronically signed, not read. Puneet Pickett MD
[2017-11-15] MEDS: Pantoprazole 20 mg EC Tab PO SCH ×2 (05:26→18:30)
[2017-11-15 06:42] VITALS: RESP 18
[2017-11-15 07:14] LABS: BASO # 0.01 K/mm3 (0.0-2.0); BASO % 0.2 % (0.0-3.0); EOS # 0.2 (0.0-0.7); EOS % 2.6 % (1.5-5.0); GRAN # 4.42 (1.4-6.5); GRAN % 67.7 % (50.0-68.0); HEMOGLOBIN 9.8 g/dL (14.0-18.0); LYMPH # 1.1 (1.2-3.4); LYMPH % 16.3 % (22.0-35.0); MEAN CELL VOLUME 91.5 fl (80.0-105.0); MEAN CORPUSCULAR HEMOGLOBIN 29.8 pg (25.0-35.0); MEAN CORPUSCULAR HGB CONC 32.6 g/dl (31.0-37.0); MEAN PLATELET VOLUME 11.3 fl (7.0-11.0); MONO # 0.9 (0.1-0.6); MONO % 13.2 % (1.0-6.0); RBC 3.29 10^6/uL (3.5-6.1); RED CELL DISTRIBUTION WIDTH 13.2 % (11.5-14.5); WHITE BLOOD COUNT 6.5 10^3/ul (4.5-11.0)
[2017-11-15 07:34] LABS: INR 1.43 (0.93-1.08); PARTIAL THROMBOPLASTIN TIME 28.4 Seconds (25.1-36.5); PROTHROMBIN TIME 16.6 SECONDS (9.4-12.5)
[2017-11-15 07:48] LABS: ALB/GLOB RATIO 0.8 (1.1-1.8); ALT/SGPT 23 U/L (7-56); AST/SGOT 31 U/L (17-59); BILIRUBIN,DIRECT 0.4 mg/dL (0.0-0.4); BLOOD UREA NITROGEN 29 mg/dL (7-21); GFR AFRICAN-AMERICAN > 60; GFR NON-AFRICAN AMERICAN > 60; MAGNESIUM 1.9 mg/dL (1.7-2.2)
[2017-11-15] MEDS: Cefepime 1gm in NS 100ml 1 GM/100 ML BAG IVPB SCH ×2 (09:27→22:02)
[2017-11-15] MEDS: POLYETHYLENE GLYCOL 3350 17 GM/Dose PACKET PO SCH (09:28)
[2017-11-15] MEDS ORDERED: Influenza Vaccine 60 mcg/0.5 mL SYR (4YR UP) IM ONE (10:00)
[2017-11-15] MEDS ORDERED: Pneumococcal 23-Valent Vaccine IM ONE (10:00)
--- NOTE | 2017-11-15 11:42 | CP.PCM.PN ---
Subjective - Date & Time of Evaluation Date of Evaluation: 11/15/17 Time of Evaluation: 11:25 - Subjective Subjective: Comfortable in bed, no fevers since yesterday morning, no nausea, no abdominal pain, no diarrhea. Objective - Vital Signs/Intake and Output Vital Signs (last 24 hours): Temp Pulse Resp BP Pulse Ox 98.7 F 70 18 93/49 L 94 L 11/15/17 06:00 11/15/17 06:00 11/15/17 06:00 11/15/17 06:00 11/15/17 06:00 Intake and Output: 11/15/17 11/15/17 06:59 18:59 Output Total 800 Balance -800 - Medications Medications: Current Medications Acetaminophen (Tylenol 325mg Tab) 650 mg PO Q6H PRN PRN Reason: FOR FEVER >=99.5F Aspirin (Aspirin Chewable) 81 mg PO 0800 [facility] PRN Reason: Protocol Last Admin: 11/14/17 08:21 Dose: 81 mg Digoxin (Lanoxin) 0.125 mg PO 1400 [facility] PRN Reason: Protocol Last Admin: 11/14/17 14:08 Dose: 0.125 mg Donepezil HCl (Aricept) 5 mg PO HS [facility] Last Admin: 11/14/17 23:09 Dose: 5 mg Cefepime HCl (Maxipime 1gm) 1 gm in 100 mls @ 100 mls/hr IVPB Q12 [facility] PRN Reason: Protocol Last Admin: 11/14/17 21:58 Dose: 100 mls/hr Lisinopril (Zestril) 2.5 mg PO DAILY [facility] PRN Reason: Protocol Last Admin: 11/14/17 12:53 Dose: 2.5 mg Midodrine (Proamatine) 10 mg PO TID [facility] Pantoprazole Sodium (Protonix Ec Tab) 20 mg PO 0600,1600 [facility] Last Admin: 11/15/17 05:26 Dose: 20 mg Pneumococcal Polyvalent Vaccine (Pneumovax 23 Vaccine) 0.5 ml IM .ONCE ONE Stop: 11/15/17 10:01 Polyethylene Glycol (Miralax) 17 gm PO DAILY [facility] Last Admin: 11/14/17 12:53 Dose: 17 gm Tamsulosin HCl (Flomax) 0.4 mg PO 1830 [facility] PRN Reason: Protocol Last Admin: 11/14/17 17:29 Dose: 0.4 mg Warfarin Sodium (Coumadin) 4 mg PO 1800 [facility] PRN Reason: Protocol Last Admin: 11/14/17 17:24 Dose: 4 mg - Labs Labs: 11/15/17 06:40 11/15/17 06:40 PT 16.6 SECONDS (9.4-12.5) H 11/15/17 06:40 INR 1.43 (0.93-1.08) H 11/15/17 06:40 APTT 28.4 Seconds (25.1-36.5) 11/15/17 06:40 - Constitutional Appears: Non-toxic - Head Exam Head Exam: NORMAL INSPECTION - ENT Exam ENT Exam: Mucous Membranes Moist - Neck Exam Neck Exam: absent: Meningismus - Respiratory Exam Respiratory Exam: Decreased Breath Sounds - Cardiovascular Exam Cardiovascular Exam: +S1, +S2 - GI/Abdominal Exam GI & Abdominal Exam: Soft. absent: Tenderness Assessment and Plan - Assessment and Plan (Free Text) Plan: Assessment systemic inflammatory response syndrome, R/O sepsis from UTI (complicated) in this patient with Spaulding catheter CVA HTN dyslipidemia atrial fibrillation S/P pacemaker placement Plan continue Cefepime day 2; CXR does not show pneumonia; blood cx negative x 1 day ; follow up urine cx, rapid Influenza test will continue to monitor clinically
[2017-11-15] MEDS: Digoxin 125 mcg (0.125 mg) Tab PO SCH (14:51)
--- NOTE | 2017-11-16 06:20 | PN ---
DATE: 11/15/2017 SUBJECTIVE: The patient is alert, awake, responsive. Overnight nurse's notes were reviewed. The patient was still found to be alert, awake, oriented x2. No adverse events documented overnight. The patient slept overnight. The patient was seen by the physical therapist. The patient was seen by social work specialist who met with the patient's son regarding the discharge. The patient discharge planning is home with home care with visiting nurse. PHYSICAL EXAMINATION: VITAL SIGNS: T-max 98.7 to 98.6. T-max in the last 24 hour 101.1 down to 98.9, 98.7, pulse 69 to 73, blood pressure in the last 24 hours 90/46, 100/46, 93/49, 96/41, respiration 18, O2 sat is 94-97%. HEAD: Examination normocephalic, atraumatic. HEENT: Examination shows pinkish pale conjunctivae. Anicteric sclerae. No oropharyngeal lesion. No neck rigidity. No visible jugular distention. Soft carotid bruit. CHEST: Kyphosis. LUNG: Examination shows no rales, crackles or wheezing. Positive left upper chest AICD. CARDIOVASCULAR: S1, S2, regular rhythm. Positive systolic murmur left sternal border, right second intercostal space, left second intercostal space. ABDOMEN: Soft. Positive bowel sounds. GENITALIA: Male. Positive Spaulding catheter. EXTREMITY: Shows no pitting, no calf numbness, no Homans' sign. MUSCULOSKELETAL: Examination shows a body mass index of 21.2. NEUROLOGIC: The patient is alert, awake, oriented x2. Cranial nerves II through XII intact and limited. Gait examination not tested. VASCULAR: Examination palpable pulses. DIAGNOSTICS: On 11/15/2017, WBC 6.5, hemoglobin/hematocrit 9.8, 30.0, platelet 139. Granulocytes are normal. PT is up to 16.6, INR 1.43. Sodium 139, potassium 4.2, chloride 104, CO2 25, anion gap 14, BUN 29, creatinine 1.1, GFR greater than 60, glucose 98, lactic acid is 1.5. LFTs are normal. Procalcitonin less than 0.05. Digoxin ____ level. Influenza is negative. Urine cultures are Gram-negative josé luis; identification and sensitivity pending. IMPRESSION AND PLAN 1. Deconditioning. 2. Gait dysfunction. 3. New fever of 101. 4. Hypotension. 5. Normocytic anemia. 6. Coumadin dependent atrial fibrillation. 7. Mild prerenal kidney injury. 8. Gram-negative josé luis urinary tract infection with microscopic hematuria, pyuria, bacteriuria. 9. Urinary retention. 10. Prostatic hypertrophy. 11. Possible bladder outlet obstruction. 12. Systemic inflammatory response syndrome. 13. Gram-negative josé luis urinary tract infection complicated secondary to Spaulding catheter placement, secondary to bladder outlet obstruction and urinary retention. 14. Status post automated implantable cardioverter defibrillator implant. 15. Episodic confusion and forgetfulness. 16. Possible dementia. 17. Prostatic hypertrophy. 18. Constipation. 19. Hypotension. PLAN: At this time, we are awaiting for the final identification and sensitivity on the urinary cultures. Current consultations Cardiology, Gastroenterology, Infectious Disease, Neurology and Urology. The patient's current medications; the patient was started on Aricept 5 mg at bedtime, Ecotrin 81 daily, Coumadin 4 mg daily, Flomax 0.4 mg daily, digoxin 0.125 daily, cefepime 1 g IV q. 12, MiraLax 17 g daily, the patient is on Namenda 5 mg twice a day, midodrine, ProAmatine 10 mg three times a day, Protonix 40 mg daily, Tylenol 650 q. 6 p.r.n. Patient received a dose of vancomycin 1 g yesterday, Zestril 2.5 mg daily. The patient was seen by Neurology. EEG ordered. Heart-healthy diet, out of bed, SCDs, MIKA stockings, physical therapy, occupational therapy ordered. The patient was seen by the physical therapist. Their evaluation from today was reviewed. RECOMMENDATIONS: Home with PT. The patient's son met with the social work specialist. DISCHARGE PLAN: The patient will return home with the son with home care referral with [facility]. We will await further recommendations regarding patient's antibiotic to be switched over to p.o. antibiotic upon discharge by Infectious Disease. Puneet Pickett MD
--- NOTE | 2017-11-16 06:39 | CON ---
DATE: NEUROLOGY CONSULTATION REASON FOR CONSULTATION: Episodic forgetfulness. HISTORY OF PRESENTING ILLNESS: The patient is an 87-year-old male who has been asked for evaluation of episodic forgetfulness. The patient apparently was admitted to subacute rehabilitation after he had a near syncopal episode. The patient has history of atrial fibrillation, on Coumadin. The patient said he forgets some things and other things he is okay with. He said he does not forget to pay his bills. Denies any focal weakness in the arms or legs. REVIEW OF SYSTEMS: Denies any headache, dizziness, chest pain, shortness of breath, abdominal pain, constipation, diarrhea, dysuria, cough, sputum production. PAST MEDICAL HISTORY: Includes atrial fibrillation, hypertension. CURRENT MEDICATIONS: Include Aricept 5 mg, aspirin, Coumadin, cefepime, midodrine, Protonix, lisinopril, and Tylenol. ALLERGIES: NO KNOWN DRUG ALLERGIES. SOCIAL HISTORY: The patient denies smoking, use of alcohol or illicit drugs. FAMILY HISTORY: Reviewed and noncontributory to the case. PHYSICAL EXAMINATION: GENERAL: The patient is an elderly male, lying on the bed, in no acute distress. VITAL SIGNS: His blood pressure is 148/99, heart rate is 69 per minute, breathing at the rate of 16 per minute, temperature is 98.2 degrees Fahrenheit. HEENT: Head is normocephalic, atraumatic. NECK: Supple. There are no carotid bruits. LUNGS: Clear. CVS: S1 and S2 are audible. No murmurs. ABDOMEN: Soft and nontender. Bowel sounds are present. NEUROLOGIC: Mental status: The patient is awake and alert. He knows he is in the hospital. The year is 2007, month is May. He does not know the name of the president. He was unable to do serial 7. His recent memory is 1/3 in 5 minutes. Cranial nerves examination: Pupils are 3 mm bilaterally reactive to light. Visual talley are full. Extraocular movements are intact. There is no facial asymmetry. Palate is upgoing bilaterally and tongue is midline. Motor examination: Tone is normal. Power is 4/5 bilaterally in all extremities. Reflexes are 1+ and symmetrical in upper extremities and absent in the lower extremities. Plantars are downgoing bilaterally. Cerebellar examination: [id number]-[id number] shows no dysmetria. Gait is deferred at the moment. LABORATORY DATA: Reviewed showed WBC of 6.5, hemoglobin 9.8, hematocrit 30.1, and platelets of 139. Sodium is 139, potassium 4.2, chloride 104, carbon dioxide 25, BUN of 29, creatinine 1.1, and glucose of 98. He had the vitamin B12 level done, which was 416. His T4 and TSH levels are within normal limits. He had a CT scan of the head done, which shows no intracranial abnormality. Left frontal and anterior parietal lobe cystic encephalomalacia. Sequelae of remote MCA territory infarction. Mild chronic macroangiopathic changes and mild age-related global atrophy. IMPRESSION: 1. Memory loss, which appears to be secondary to underlying dementia. 2. 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 3. History of atrial fibrillation. RECOMMENDATIONS: 1. The patient was started on Aricept yesterday, which is to be continued and after 1 month if he is able to tolerate it, the dose needs to be increased to 10 mg once a day. 2. The patient to have an electroencephalogram. 3. I will also start the patient on Namenda 5 mg twice a day, which can be increased to 10 mg twice a day after a month. 4. The patient to be continued on Coumadin for his underlying atrial fibrillation. 5. Please continue other treatment and supportive care. Thank you for the opportunity to participate in the care of this patient. Gardenia Rodriguez MD
[2017-11-16] MEDS: Pantoprazole 20 mg EC Tab PO SCH ×2 (06:56→17:51)
--- NOTE | 2017-11-16 08:43 | PN ---
DATE: 11/15/2017 GENITOURINARY PROGRESS NOTE SUBJECTIVE: Patient is now seen on the Transitional Care Unit at [facility]. He was seen during his acute admission. Patient had urinary retention and a Spaulding catheter was placed. Plan was for the patient to receive a voiding trial, but he has not done that as of yet. There was also some fullness noted on prior imaging and we will going to plan for a repeat renal ultrasound. Patient is now ambulating and feeling better and stronger. His GFR is greater than 60. PHYSICAL EXAMINATION: VITAL SIGNS: He has been afebrile. Temperature of 98.7, pulse of 70, BP 93/49, respirations 18. ABDOMEN: Soft, nontender, nondistended. There is no CVA tenderness. Phallus is normal. There is a Spaulding catheter in place, draining clear colored urine. IMPRESSION AND PLAN: This is an 87-year-old male with urinary retention. Urologically, patient has been stable with the Spaulding catheter in. He has been maintained on tamsulosin daily. Plan will be to remove his Spaulding catheter tomorrow morning for a voiding trial. If the patient is voiding, he will need a postvoid residual checked prior to him being discharged. If patient is unable to void in 8 hours, Spaulding catheter should be replaced and patient can be discharged home with an indwelling Spaulding catheter. Patient will then need to follow up in my office to consider monthly Spaulding changes versus possible surgical intervention, but we will need to discuss that with patient's family as well as his medical physician. Thank you for allowing me to participate in the care of this patient. We will follow him with you. Jesse Grijalva MD
[2017-11-16] MEDS: ceFAZolin 1 gm in NS 1 GM/100 ML BAG IVPB SCH ×2 (09:39→17:48)
[2017-11-16] MEDS: POLYETHYLENE GLYCOL 3350 17 GM/Dose PACKET PO SCH (09:40)
--- NOTE | 2017-11-16 14:09 | CP.PCM.PN ---
Subjective - Date & Time of Evaluation Date of Evaluation: 11/16/17 Time of Evaluation: 11:00 - Subjective Subjective: Comfortable, no fevers. Objective - Vital Signs/Intake and Output Vital Signs (last 24 hours): Temp Pulse Resp BP Pulse Ox 98.2 F 69 18 148/99 H 97 11/15/17 17:58 11/15/17 17:58 11/15/17 17:58 11/15/17 17:58 11/15/17 17:58 Intake and Output: 11/16/17 11/16/17 06:59 18:59 Output Total 500 Balance -500 - Medications Medications: Current Medications Acetaminophen (Tylenol 325mg Tab) 650 mg PO Q6H PRN PRN Reason: FOR FEVER >=99.5F Aspirin (Aspirin Chewable) 81 mg PO 0800 [facility] PRN Reason: Protocol Last Admin: 11/15/17 09:27 Dose: 81 mg Digoxin (Lanoxin) 0.125 mg PO 1400 [facility] PRN Reason: Protocol Last Admin: 11/15/17 14:51 Dose: 0.125 mg Donepezil HCl (Aricept) 5 mg PO HS [facility] Last Admin: 11/15/17 22:03 Dose: 5 mg Cefazolin Sodium (Ancef 1gm In Ns) 1 gm in 100 mls @ 100 mls/hr IVPB Q8 [facility] PRN Reason: Protocol Lisinopril (Zestril) 2.5 mg PO DAILY [facility] PRN Reason: Protocol Last Admin: 11/15/17 09:30 Dose: Not Given Memantine (Namenda) 5 mg PO BID [facility] Midodrine (Proamatine) 10 mg PO TID [facility] Last Admin: 11/15/17 18:30 Dose: 10 mg Pantoprazole Sodium (Protonix Ec Tab) 20 mg PO 0600,1600 [facility] Last Admin: 11/16/17 06:56 Dose: 20 mg Polyethylene Glycol (Miralax) 17 gm PO DAILY [facility] Last Admin: 11/15/17 09:28 Dose: Not Given Tamsulosin HCl (Flomax) 0.4 mg PO 1830 [facility] PRN Reason: Protocol Last Admin: 11/15/17 18:28 Dose: 0.4 mg Warfarin Sodium (Coumadin) 4 mg PO 1800 [facility] PRN Reason: Protocol Last Admin: 11/15/17 18:27 Dose: 4 mg - Labs Labs: 11/15/17 06:40 11/15/17 06:40 PT 16.6 SECONDS (9.4-12.5) H 11/15/17 06:40 INR 1.43 (0.93-1.08) H 11/15/17 06:40 APTT 28.4 Seconds (25.1-36.5) 11/15/17 06:40 - Constitutional Appears: Non-toxic - Head Exam Head Exam: NORMAL INSPECTION - ENT Exam ENT Exam: Mucous Membranes Moist - Neck Exam Neck Exam: absent: Meningismus - Respiratory Exam Respiratory Exam: Decreased Breath Sounds - Cardiovascular Exam Cardiovascular Exam: +S1, +S2 - GI/Abdominal Exam GI & Abdominal Exam: Soft. absent: Tenderness Assessment and Plan - Assessment and Plan (Free Text) Plan: Assessment sepsis from UTI (complicated) in this patient with Spaulding catheter, growing Citrobacter CVA HTN dyslipidemia atrial fibrillation S/P pacemaker placement Plan change Cefepime to Cefazolin (day 3 total) - can switch to PO Keflex for another 7-[address] Pickett
[2017-11-16] MEDS: Digoxin 125 mcg (0.125 mg) Tab PO SCH (14:50)
[2017-11-16 17:39] VITALS: BP 113/53; PULSE 60; TEMP 99.5; O2SAT 97
[2017-11-16 17:53] VITALS: PULSE 68
--- NOTE | 2017-11-17 04:33 | DS ---
HISTORY OF PRESENT ILLNESS: Patient is to be discharged after completion of the TCU stay. In the morning, patient's Spaulding catheter was removed as per Urology, Dr. Grijalva's order, as per the patient's nurse. Patient failed the voiding trial and patient's bladder scan showed more than 405 mL of urine in the bladder. Patient's urologist was called. Urologist ordered the reinsertion of Spaulding catheter of 16[place] with significant urine output. At this time, patient's Spaulding catheter will be connected to the leg bag upon discharge. Overnight nurse's notes were reviewed. Overnight slept well. PHYSICAL EXAMINATION: VITAL SIGNS: T-max 98.2; heart rate 69, 60, 59, 60; blood pressure 113/53 105/47, 148/99; respiration 18; O2 sat 97 to 100%. INTAKE AND OUTPUT: Not correctly documented. DIAGNOSTICS STUDIES: No labs from today. Urine cultures, Citrobacter diversus, sensitive to all antibiotic listed. FINAL IMPRESSION, PLAN AND DISCHARGE DIAGNOSES: 1. Recurrent urinary retention with prostatic hypertrophy and voiding trial failure. 2. Citrobacter diversus urinary tract infection. 3. Fever of 101.1. 4. Deconditioning. 5. Gait dysfunction. 6. Status post mechanical fall versus questionable syncope. 7. Severe rhabdomyolysis. 8. Acute renal failure (resolved). 9. Sepsis secondary to urinary tract infection, secondary to complicated urinary tract infection and Spaulding catheter-dependent patient. 10. Hypotension. 11. Decreased body mass index. 12. Normocytic anemia. 13. Coumadin-dependent atrial fibrillation. 14. Prerenal kidney injury. 15. Microscopic hematuria, pyuria, bacteriuria. 16. Prostatic hypertrophy. 17. Dementia with memory loss. 18. Constipation. 19. History of old cerebrovascular accident involving the middle cerebral artery territory infarct. PLAN: At this time, patient had a reinsertion of Spaulding catheter with normal flow of urine. Patient is cleared by Infectious Disease and all the subspecialty for discharge. DISCHARGE MEDICATIONS: Patient is to be discharged home on following medications. Discharge medications are Tylenol 650 q.6 p.r.n., aspirin 81 mg daily, Keflex 500 mg three times a day for 7 days, digoxin 0.125 mg daily, Aricept 5 mg at bedtime, Drisdol 50,000 units weekly, Zestril 2.5 mg daily, Namenda 5 mg twice a day, ProAmatine increased to 5 mg three times a day, Protonix 40 mg daily, MiraLax 17 g daily, Flomax 0.4 mg daily, Coumadin 4 mg daily. Patient is discharged home with discharge followup with Dr. Pickett and Urology within 1 week. Discharge medications as per the new script and updated ambulatory orders, which were given to the patient upon discharge. Discharge referral to [facility] and home [facility]. During this hospitalization, patient was extensively explained about the details of his complicated medical condition, details of overall guarded prognosis, which he acknowledged understanding. Time spent in the entire discharge process, more than 45 minutes. Dictated and electronically signed, not read. Puneet Pickett MD
--- NOTE | 2017-11-18 06:24 | EEG ---
DATE: ELECTROENCEPHALOGRAM REPORT INTRODUCTION: This is a digitally recorded EEG monitoring using standard EEG montages. BACKGROUND RHYTHM: The EEG shows a background activity of 8 Hz alpha activity in parietooccipital region. The EEG activity is bilaterally symmetrical and synchronous. There is attenuation with background activity and eye opening. No sleep recording was noted. ABNORMAL POTENTIALS: No spike, sharp waves, or focal slowing was seen. PHOTIC STIMULATION AND HYPERVENTILATION: Photic stimulation did not reveal any abnormality. Hyperventilation was not performed. IMPRESSION: Normal electroencephalogram. No epileptiform activity is seen in this electroencephalogram recording. Gardenia Rodriguez MD
== END 2017-11-16 20:32 | disposition home health service (06) | DRG 92 ==
LOC: TRCU 21:01
PROVIDERS: ADMIT Internal Medicine; ATTEND Internal Medicine
PROC: F07Z9FZ Gait Training/Functional Ambulation Treatment using Assistive, Adaptive, Supportive or Protective Equipment (ICD-10-PCS; principal; 2017-11-10)
PROC: F07L6ZZ Therapeutic Exercise Treatment of Musculoskeletal System - Lower Back / Lower Extremity (ICD-10-PCS; 2017-11-10)
PROC: F08Z1FZ Dressing Techniques Treatment using Assistive, Adaptive, Supportive or Protective Equipment (ICD-10-PCS; 2017-11-10)
PROC: 0T9B70Z Drainage of Bladder with Drainage Device, Via Natural or Artificial Opening (ICD-10-PCS; 2017-11-10)
DX: R26.9 Unspecified abnormalities of gait and mobility (principal); M62.82 Rhabdomyolysis; I42.0 Dilated cardiomyopathy; I50.20 Unspecified systolic (congestive) heart failure; T83.511A Infection and inflammatory reaction due to indwelling urethral catheter, initial encounter; N39.0 Urinary tract infection, site not specified; N32.0 Bladder-neck obstruction; E87.5 Hyperkalemia; I11.0 Hypertensive heart disease with heart failure; E83.42 Hypomagnesemia; N40.1 Benign prostatic hyperplasia with lower urinary tract symptoms; R33.8 Other retention of urine; I48.91 Unspecified atrial fibrillation; D64.9 Anemia, unspecified; F03.90 Unspecified dementia, unspecified severity, without behavioral disturbance, psychotic disturbance, mood disturbance, and anxiety; K59.00 Constipation, unspecified; E78.5 Hyperlipidemia, unspecified; I25.118 Atherosclerotic heart disease of native coronary artery with other forms of angina pectoris; I25.5 Ischemic cardiomyopathy; R31.29 Other microscopic hematuria; Y84.6 Urinary catheterization as the cause of abnormal reaction of the patient, or of later complication, without mention of misadventure at the time of the procedure; Z86.73 Personal history of transient ischemic attack (TIA), and cerebral infarction without residual deficits; Z95.0 Presence of cardiac pacemaker; Z79.01 Long term (current) use of anticoagulants

== ENCOUNTER 2017-12-16 13:18 | Emergency (ER) | payer MEDICARE, OTHER ==
[2017-12-16 13:19] VITALS: PULSE 68
--- NOTE | 2017-12-16 13:44 | ED PDOC ---
Arrival/HPI - General Time Seen by Provider: 12/16/17 13:27 Historian: Patient - History of Present Illness Narrative History of Present Illness (Text): 12/16/17 13:39 Demetrio Quintanilla is an 87 year old male, whose past medical history includes CVA, hypertension, Hypercholesteremia, and atrial fibrillation, who presents to the emergency department complaining of difficulty urinating. Patient was in the TCU for difficulty urinating before, where a Morales catheter was placed. Patient was discharged home 2 days ago with morales catheter with flomax after he failed a voiding trial. Patient reports that home nurse removed his morales catheter and he has been unable to urinate since then. Patient denies any fever, chills , chest pain, shortness of breath, nausea, vomiting, diarrhea, back pain, neck pain, headache, dizziness or any other complaints. Chart review shows that patient was seen by Dr. Grijalva and was recommended to continue flomax, get cystoscopy and possibly laser vaporization, and maintain morales. 12/16/17 14:12 Time/Duration: < week (2 days) Symptom Onset: Sudden Symptom Course: Unchanged Activities at Onset: Light Context: Home Past Medical History - Provider Review Nursing Documentation Reviewed: Yes - Infectious Disease Hx of Infectious Diseases: None - Tetanus Immunization Tetanus Immunization: Unknown - Cardiac Hx Cardiac Disorders: Yes Hx Congestive Heart Failure: Yes Hx Hypertension: Yes - Neurological HX Cerebrovascular Accident: Yes - Hematological/Oncological Hx Blood Transfusions: No Hx Blood Transfusion Reaction: No - Musculoskeletal/Rheumatological Hx Falls: No - Psychiatric Hx Substance Use: No - Past Surgical History Past Surgical History: Unable to Obtain - Anesthesia Hx Anesthesia Reactions: No Hx Malignant Hyperthermia: No - Suicidal Assessment Feels Threatened In Home Enviroment: No Family/Social History - Physician Review Nursing Documentation Reviewed: Yes Family/Social History: Unknown Family HX Smoking Status: Never Smoked Hx Alcohol Use: No Hx Substance Use: No Hx Substance Use Treatment: No Allergies/Home Meds Allergies/Adverse Reactions: Allergies No Known Allergies Allergy (Verified 12/16/17 14:01) Home Medications: Home Meds Medication Instructions Recorded Confirmed Ergocalciferol (Vitamin D2) 50,000 iu PO WED 07/26/14 12/16/17 [Vitamin D2] Review of Systems - Physician Review All systems were reviewed & negative as marked: Yes - Review of Systems Constitutional: Normal Eyes: Normal ENT: Normal Respiratory: Normal. absent: SOB, Cough Cardiovascular: Normal. absent: Chest Pain, Palpitations Gastrointestinal: Normal. absent: Abdominal Pain, Diarrhea, Nausea, Vomiting Genitourinary Male: Urinary Output Changes (difficulty urinating) Musculoskeletal: Normal. absent: Back Pain, Neck Pain Skin: Normal. absent: Rash Neurological: Normal. absent: Headache, Dizziness Endocrine: Normal Hemo/Lymphatic: Normal Psychiatric: Normal Physical Exam - Physical Exam Narrative Physical Exam (Text): 12/16/17 13:45 Constitutional: No acute distress. Head: Normocephalic. Atraumatic. Eyes: PERRL. ENT: Moist mucous membranes. Neck: Supple. Cardiovascular: Irregularly Regular rate. Chest: No tenderness. Respiratory: Clear to auscultation bilaterally. GI: Soft. Nontender. Nondistended. Back: No CVA tenderness. Musculoskeletal: No tenderness or swelling of extremities. Skin: No rash. Neurologic: Alert, no focal deficit. Vital Signs Temp Pulse Resp BP Pulse Ox 12/16/17 13:56 98.6 F 88 16 141/78 92 L Medical Decision Making ED Course and Treatment: 12/16/17 13:46 Impression: 87 year old male presenting to the emergency department complaining of difficulty urinating for 2 days. Previously failed voiding trial. Has urology follow-up Plan: -- Leg Bag -- Urinary Catheter -- Reassess and disposition Prior Visits: Notes and results from previous visits were reviewed. Patient was last seen in the emergency department on 11/02/17 for Rhabdomyelitis. Patient was hospitalized. Progress Notes: 12/16/17 14:13 Morales catheter put out >500cc urine. Patient discharged with leg bag. 12/16/17 14:46 - Scribe Statement The provider has reviewed the documentation as recorded by the Adelita Gonzalez All medical record entries made by the Adelita were at my direction and personally dictated by me. I have reviewed the chart and agree that the record accurately reflects my personal performance of the history, physical exam, medical decision making, and the department course for this patient. I have also personally directed, reviewed, and agree with the discharge instructions and disposition. Disposition/Present on Arrival - Present on Arrival Any Indicators Present on Arrival: No History of DVT/PE: No History of Uncontrolled Diabetes: No Urinary Catheter: Yes History Surgical Site Infection Following: None - Disposition Have Diagnosis and Disposition been Completed?: Yes Diagnosis: Urinary retention Disposition: HOME/ ROUTINE Disposition Time: 14:14 Patient Plan: Discharge Patient Problems: Current Active Problems Problem Status Onset Urinary retention Acute Condition: GOOD Discharge Instructions (ExitCare): Morales Catheter, Male, Urinary Retention Additional Instructions: Follow-up with Dr. Grijalva within 1 week. Return to ED if condition worsens. Follow-up with PMD within 2 days. Do not remove morales Referrals: Carloz More MD [Primary Care Provider] - Follow up with primary Jesse Grijalva MD [Staff Provider] - Follow up with primary
[2017-12-16 13:57] VITALS: RESP 16
[2017-12-16 16:46] VITALS: BP 132/88; PULSE 82; TEMP 97.9; O2SAT 99
== END 2017-12-16 16:00 | disposition home or self-care (01) ==
LOC: ED 13:18
DX: R33.9 Retention of urine, unspecified (principal)

== ENCOUNTER 2018-01-27 10:00 | Emergency (ER) | payer MEDICARE, OTHER ==
[2018-01-27 10:02] VITALS: PULSE 68
[2018-01-27 10:12] VITALS: TEMP 98; O2SAT 97
--- NOTE | 2018-01-27 11:05 | ED PDOC ---
Arrival/HPI - General Chief Complaint: Male Genitourinary Time Seen by Provider: 01/27/18 10:21 Historian: Patient - History of Present Illness Narrative History of Present Illness (Text): 01/27/18 10:56 87 y/o male, pmh including cva/htn/hyperlipidemia/a.fibb on coumadin, nkda, been on the morales cathether for couple months which he stated that he needs to have it in for the rest of his life. Pt. stated that he is due for the morales catheter change today by his RN but has not seen the RN so he came to the ER for evaluation. Pt. stated that he has mild irritation on the urethra region. Pt. has been eating and drinking well, no recent change on coumadin level and the pmd has been keeping track of the INR level for him. Pt. has no chest pain or flank pain, no fever or chills, no night sweat, no rash, no other medical or psychological complaints. Past Medical History - Provider Review Nursing Documentation Reviewed: Yes - Infectious Disease Hx of Infectious Diseases: None - Tetanus Immunization Tetanus Immunization: Unknown - Cardiac Hx Cardiac Disorders: Yes Hx Atrial Fibrillation: Yes Hx Congestive Heart Failure: Yes Hx Hypertension: Yes - Pulmonary Hx Respiratory Disorders: No - Neurological Hx Neurological Disorder: Yes HX Cerebrovascular Accident: Yes - HEENT Hx HEENT Disorder: No - Renal Hx Renal Disorder: No - Endocrine/Metabolic Hx Endocrine Disorders: No - Hematological/Oncological Hx Blood Disorders: No - Integumentary Hx Dermatological Disorder: No - Musculoskeletal/Rheumatological Hx Musculoskeletal Disorders: No - Gastrointestinal Hx Gastrointestinal Disorders: No - Genitourinary/Gynecological Hx Genitourinary Disorders: Yes (urine retention) Hx Reproductive Disorders: Yes (BPH) - Psychiatric Hx Psychophysiologic Disorder: No Hx Substance Use: No - Past Surgical History Past Surgical History: Unable to Obtain - Surgical History Other/Comment: PROSTATE - Anesthesia Hx Anesthesia Reactions: No Hx Malignant Hyperthermia: No - Suicidal Assessment Feels Threatened In Home Enviroment: No Family/Social History - Physician Review Nursing Documentation Reviewed: Yes Family/Social History: Unknown Family HX Smoking Status: Never Smoked Hx Alcohol Use: No Hx Substance Use: No Hx Substance Use Treatment: No Allergies/Home Meds Allergies/Adverse Reactions: Allergies No Known Allergies Allergy (Verified 01/27/18 10:03) Home Medications: Home Meds Medication Instructions Recorded Confirmed Ergocalciferol (Vitamin D2) 50,000 iu PO WED 07/26/14 12/16/17 [Vitamin D2] Review of Systems - Review of Systems Constitutional: absent: Fatigue, Fevers Eyes: absent: Vision Changes ENT: absent: Hearing Changes Respiratory: absent: SOB, Cough Cardiovascular: absent: Chest Pain Gastrointestinal: absent: Abdominal Pain, Nausea, Vomiting Musculoskeletal: absent: Arthralgias, Back Pain Skin: absent: Rash Psychiatric: absent: Anxiety, Depression Physical Exam Vital Signs Reviewed: Yes Vital Signs Temp Pulse Resp BP Pulse Ox 01/27/18 12:50 75 18 118/69 97 01/27/18 11:21 79 18 121/71 97 01/27/18 10:06 98.0 F 84 16 119/69 97 Temperature: Afebrile Blood Pressure: Normal Pulse: Regular Respiratory Rate: Normal Appearance: Positive for: Well-Appearing, Non-Toxic, Comfortable Pain Distress: None Mental Status: Positive for: Alert and Oriented X 3 - Systems Exam Head: Present: Atraumatic, Normocephalic Pupils: Present: PERRL Extroacular Muscles: Present: EOMI Conjunctiva: Present: Normal Mouth: Present: Moist Mucous Membranes Neck: Present: Normal Range of Motion Respiratory/Chest: Present: Clear to Auscultation, Good Air Exchange. No: Respiratory Distress, Accessory Muscle Use Cardiovascular: Present: Regular Rate and Rhythm, Normal S1, S2. No: Murmurs Abdomen: No: Tenderness, Distention, Peritoneal Signs Genitourinary Male: Present: Normal External Genitalia, Circumcised Penis, Other (visible leg bag morales noted on the morales inserted to urethra region, there is no hematuria). No: Lesions, Penile Discharge, Testicle Tenderness, Penile Swelling, Masses, Erythema, Hernias, Testicle Swelling Back: Present: Normal Inspection Upper Extremity: Present: Normal Inspection. No: Cyanosis, Edema Lower Extremity: Present: Normal Inspection. No: Edema Neurological: Present: GCS=15, Speech Normal, Motor Func Grossly Intact, Gait Normal, Memory Normal Skin: Present: Warm, Dry, Normal Color. No: Rashes Psychiatric: Present: Alert, Oriented x 3, Normal Insight, Normal Concentration Medical Decision Making ED Course and Treatment: 01/27/18 11:12 -Old morales remove and change with new one, will obtain UA from the new morales -Observe and reassess 01/27/18 13:09 -UA show +UTI -New morales inserted and comfortable, eating and drinking well. -urine culture from 11/2017 show positive which sensitive to the cefazolin -Discharge home with keflex, new morales, please follow up with your own pmd and urologist within 48 hours, return to the ER for any new or worsening signs or symptoms. - Lab Interpretations Lab Results: Lab Results 01/27/18 12:10: Urine Color Yellow, Urine Appearance Clear, Urine pH 5.5, Ur Specific [place] >= 1.030, Urine Protein 100 H, Urine Glucose (UA) Negative, Urine Ketones Negative, Urine Blood Large H, Urine Nitrate Positive H, Urine Bilirubin Negative, Urine Urobilinogen 0.2, Ur Leukocyte Esterase Moderate H, Urine RBC Tntc, Urine WBC Tntc, Ur Epithelial Cells None, Amorphous Sediment Few , Urine Bacteria Mod I have reviewed the lab results: Yes - PA / WELDER / Resident Statement MD/DO has reviewed & agrees with the documentation as recorded. Disposition/Present on Arrival - Present on Arrival Any Indicators Present on Arrival: No History of DVT/PE: No History of Uncontrolled Diabetes: No Urinary Catheter: Yes History of Decub. Ulcer: No History Surgical Site Infection Following: None - Disposition Have Diagnosis and Disposition been Completed?: Yes Diagnosis: Morales catheter problem, UTI (urinary tract infection) Disposition: HOME/ ROUTINE Disposition Time: 11:13 Patient Plan: Discharge Patient Problems: Current Active Problems Problem Status Onset Morales catheter problem Acute Condition: GOOD Additional Instructions: -Discharge home with keflex, new morales, please follow up with your own pmd and urologist within 48 hours, return to the ER for any new or worsening signs or symptoms. Prescriptions: Cephalexin [cephalexin] 500 mg PO QID PRN #28 cap PRN Reason: Other Referrals: Jesse Grijalva MD [Staff Provider] - Follow up with primary Forms: WORK NOTE
[2018-01-27 11:21] VITALS: RESP 18
[2018-01-27 12:32] LABS: PH,URINE 5.5 (4.7-8.0); URINE BILIRUBIN NEGATIVE (NEGATIVE); URINE BLOOD LARGE (NEGATIVE); URINE GLUCOSE (UA) NEGATIVE (NEGATIVE); URINE LEUKOCYTE ESTERASE MODERATE Leu/uL (NEGATIVE); URINE PROTEIN 100 mg/dL (<30 mg/dL); URINE UROBILINOGEN 0.2 E.U./dL (<1 E.U./dL)
[2018-01-27 12:33] LABS: URINE COLOR YELLOW (YELLOW)
[2018-01-27 12:34] LABS: URINE APPEARANCE CLEAR (CLEAR)
[2018-01-27 12:40] LABS: URINE AMORPHOUS SEDIMENT FEW; URINE BACTERIA MOD (NEG); URINE RBC TNTC /hpf (0-2); URINE WBC TNTC /hpf (0-6)
[2018-01-27 12:50] VITALS: BP 118/69; PULSE 75
== END 2018-01-27 14:15 | disposition home or self-care (01) ==
LOC: ED 10:00
DX: Z46.6 Encounter for fitting and adjustment of urinary device (principal); N39.0 Urinary tract infection, site not specified

== ENCOUNTER 2018-03-01 06:10 | Emergency (ER) | payer MEDICARE, OTHER ==
[2018-03-01 06:11] VITALS: PULSE 68
[2018-03-01 06:29] VITALS: RESP 18
--- NOTE | 2018-03-01 07:19 | ED PDOC ---
Arrival/HPI - General Chief Complaint: Dizziness/Lightheaded Time Seen by Provider: 03/01/18 06:59 Historian: Patient - History of Present Illness Narrative History of Present Illness (Text): 03/01/18 07:00 87 year old male, with past medical history of CVA, hypertension, hyperlipidemia and A-fib on coumadin, presents to the Emergency department complaining of headache and lightheadedness this morning. Patient states he was in a store this morning when he suddenly felt dizzy and was provided a seat by the store team member. As per patient the episode lasted couple minutes and soon resolved. Patient informs similar symptoms in the past. Patient denies any head trauma or loss of consciousness. Patient denies any fever, chills, nausea, vomiting, diarrhea, abdominal pain, chest pain, shortness of breath, sick contact, recent travel or any other complaints. Patient presents to the Emergency department for medical evaluation. PMD: Dr. Gallegos Time/Duration: 1-3 hours Symptom Onset: Sudden Symptom Course: Improving Quality: Aching Activities at Onset: Light Context: Other (Store) Past Medical History - Provider Review Nursing Documentation Reviewed: Yes - Infectious Disease Hx of Infectious Diseases: None - Tetanus Immunization Tetanus Immunization: Unknown - Cardiac Hx Cardiac Disorders: Yes Hx Atrial Fibrillation: Yes Hx Congestive Heart Failure: Yes Hx Hypertension: Yes Hx Pacemaker: Yes (01/2018) - Pulmonary Hx Respiratory Disorders: No - Neurological Hx Neurological Disorder: Yes HX Cerebrovascular Accident: Yes - HEENT Hx HEENT Disorder: No - Renal Hx Renal Disorder: No 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 - Endocrine/Metabolic Hx Endocrine Disorders: No - Hematological/Oncological Hx Blood Disorders: No - Integumentary Hx Dermatological Disorder: No - Musculoskeletal/Rheumatological Hx Musculoskeletal Disorders: No - Gastrointestinal Hx Gastrointestinal Disorders: No - Genitourinary/Gynecological Hx Genitourinary Disorders: Yes (urine retention) Hx Reproductive Disorders: Yes (BPH) - Psychiatric Hx Psychophysiologic Disorder: No Hx Substance Use: No - Past Surgical History Past Surgical History: Unable to Obtain - Surgical History Other/Comment: PROSTATE - Anesthesia Hx Anesthesia Reactions: No Hx Malignant Hyperthermia: No - Suicidal Assessment Feels Threatened In Home Enviroment: No Family/Social History - Physician Review Nursing Documentation Reviewed: Yes Family/Social History: No Known Family HX Smoking Status: Never Smoked Hx Alcohol Use: No Hx Substance Use: No Hx Substance Use Treatment: No Allergies/Home Meds Allergies/Adverse Reactions: Allergies No Known Allergies Allergy (Verified 03/01/18 06:24) Home Medications: Home Meds Medication Instructions Recorded Confirmed Ergocalciferol (Vitamin D2) 50,000 iu PO WED 07/26/14 03/01/18 [Vitamin D2] Review of Systems - Physician Review All systems were reviewed & negative as marked: Yes - Review of Systems Constitutional: Normal. absent: Fevers Eyes: Normal ENT: Normal Respiratory: Normal. absent: SOB Cardiovascular: Normal. absent: Chest Pain Gastrointestinal: Normal. absent: Abdominal Pain, Diarrhea, Nausea, Vomiting Genitourinary Male: Normal Musculoskeletal: Normal Skin: Normal Neurological: Headache, Dizziness Endocrine: Normal Hemo/Lymphatic: Normal Psychiatric: Normal Physical Exam Vital Signs Reviewed: Yes Vital Signs Temp Pulse Resp BP Pulse Ox 03/01/18 10:44 97.6 F 72 18 127/81 95 03/01/18 09:22 60 18 114/59 L 98 03/01/18 06:48 61 18 108/69 95 03/01/18 06:24 98.0 F 63 18 98/51 L 95 Temperature: Afebrile Blood Pressure: Hypotensive Pulse: Regular Respiratory Rate: Normal Appearance: Positive for: Non-Toxic, Comfortable, Cachectic Pain Distress: None Mental Status: Positive for: Alert and Oriented X 3 Finger Stick Blood Glucose: 112 - Systems Exam Head: Present: Atraumatic, Normocephalic Pupils: Present: PERRL Extroacular Muscles: Present: EOMI Conjunctiva: Present: Normal Neck: Present: Normal Range of Motion Respiratory/Chest: Present: Clear to Auscultation, Good Air Exchange. No: Respiratory Distress, Accessory Muscle Use Cardiovascular: Present: Regular Rate and Rhythm, Normal S1, S2. No: Murmurs Abdomen: No: Tenderness, Distention, Peritoneal Signs Upper Extremity: Present: Normal Inspection. No: Cyanosis, Edema Lower Extremity: Present: Normal Inspection. No: Edema Neurological: Present: GCS=15, CN II-XII Intact, Speech Normal Skin: Present: Warm, Dry, Normal Color. No: Rashes Psychiatric: Present: Alert, Oriented x 3, Normal Insight, Normal Concentration Medical Decision Making ED Course and Treatment: 03/01/18 07:00 Impression: 87 year old male presents to the Emergency department for headache and dizziness. Plan: -- Blood Type and screen -- EKG -- labs -- Chest X-ray -- Urine Culture -- Urinalysis -- Reassess and disposition Progress Notes: 03/01/18 07:00 EKG: Ordered, reviewed, and independently interpreted the EKG. Rate : 61 BPM Rhythm : NSR Interpretation : AV sequential/ dual chamber electronic pacemaker 03/01/18 09:14 Chest X-ray reviewed by radiologist, shows: FINDINGS: LUNGS: No active pulmonary disease. PLEURA: No significant pleural effusion identified, no pneumothorax apparent. CARDIOVASCULAR: No radiographic findings to suggest acute or significant cardiovascular disease. Position/ configuration of pacemaker\AICD device: Satisfactory. OSSEOUS STRUCTURES: No significant abnormalities. VISUALIZED UPPER ABDOMEN: Normal. OTHER FINDINGS: None. IMPRESSION: No active disease. No significant interval change compared to the prior examination(s). - Lab Interpretations Lab Results: 03/01/18 07:15 03/01/18 07:15 Lab Results 03/01/18 08:51: Urine Color Yellow, Urine Appearance Clear, Urine pH 6.0, Ur Specific [place] 1.025, Urine Protein 30 H, Urine Glucose (UA) Negative, Urine Ketones Negative, Urine Blood Small H, Urine Nitrate Positive H, Urine Bilirubin Negative, Urine Urobilinogen 1.0 H, Ur Leukocyte Esterase Moderate H, Urine RBC 10 - 15, Urine WBC 25 - 30, Ur Epithelial Cells None, Amorphous Sediment Few, Urine Bacteria Many, Urine Other [place]yeast 03/01/18 07:15: Sodium 143, Potassium 4.1, Chloride 106, Carbon Dioxide 24, Anion Gap 17, BUN 21, Creatinine 1.3, Est GFR ( Amer) > 60, Est GFR (Non- Af Amer) 52, Random Glucose 130 H, Calcium 9.4, Total Bilirubin 0.7, AST 27, ALT 16, Alkaline Phosphatase 49, Lactate Dehydrogenase 541, Total Creatine Kinase 85, Troponin I < 0.01 D, NT-Pro-B Natriuret Pep 4720 H, Total Protein 7.1, Albumin 3.8, Globulin 3.3, Albumin/Globulin Ratio 1.1 03/01/18 07:15: PT 14.3 H, INR 1.24 H 03/01/18 07:15: WBC 3.7 L D, RBC 4.10, Hgb 12.0 L D, Hct 36.5 L, MCV 89.0, MCH 29.3, MCHC 32.9, RDW 13.8, Plt Count 102 L, MPV 10.6, Gran % 61.2, Lymph % (Auto ) 29.6, [place] % (Auto) 8.1 H, Eos % (Auto) 0.8 L, Baso % (Auto) 0.3, Gran # 2.27 , Lymph # (Auto) 1.1 L, [place] # (Auto) 0.3, Eos # (Auto) 0.0, Baso # (Auto) 0.01 03/01/18 06:44: POC Glucose (mg/dL) 112 H - RAD Interpretation Radiology Orders: 03/01/18 07:00 CHEST PORTABLE [RAD] Stat Convict Guard: Radiologist - EKG Interpretation Interpreted by ED Physician: Yes Type: 12 lead EKG - Medication Orders Current Medication Orders: Discontinued Medications Cephalexin Monohydrate (Keflex) 500 mg PO STAT STA PRN Reason: Protocol Stop: 03/01/18 10:47 - Scribe Statement The provider has reviewed the documentation as recorded by the Scribe Maria Burrows. All medical record entries made by the Scribe were at my direction and personally dictated by me. I have reviewed the chart and agree that the record accurately reflects my personal performance of the history, physical exam, medical decision making, and the department course for this patient. I have also personally directed, reviewed, and agree with the discharge instructions and disposition. Disposition/Present on Arrival - Present on Arrival Any Indicators Present on Arrival: Yes History of DVT/PE: No History of Uncontrolled Diabetes: No Urinary Catheter: Yes History of Decub. Ulcer: No History Surgical Site Infection Following: None - Disposition Have Diagnosis and Disposition been Completed?: Yes Diagnosis: UTI (urinary tract infection), Near syncope Disposition: HOME/ ROUTINE Disposition Time: 10:50 Patient Plan: Discharge Condition: GOOD Discharge Instructions (ExitCare): Urinary Tract Infection, Adult (DC) Additional Instructions: Mr Quintanilla- So sorry this happened to you today. All of your tests check out ok, but you do have an infection in your urine. Keflex is three times a day for ten days. Follow up with your regular doctor next week. Return to us if worse or any new symptoms. Lane- Dr. Mariano Gabrin Prescriptions: Cephalexin [cephalexin] 500 mg PO TID #30 cap Forms: [employer] ([place])
[2018-03-01 07:31] LABS: BASO # 0.01 K/mm3 (0.0-2.0); BASO % 0.3 % (0.0-3.0); EOS % 0.8 % (1.5-5.0); GRAN # 2.27 (1.4-6.5); GRAN % 61.2 % (50.0-68.0); LYMPH # 1.1 (1.2-3.4); LYMPH % 29.6 % (22.0-35.0); MEAN CORPUSCULAR HEMOGLOBIN 29.3 pg (25.0-35.0); MEAN CORPUSCULAR HGB CONC 32.9 g/dl (31.0-37.0); MEAN PLATELET VOLUME 10.6 fl (7.0-11.0); MONO # 0.3 (0.1-0.6); MONO % 8.1 % (1.0-6.0); RBC 4.1 10^6/uL (3.5-6.1); RED CELL DISTRIBUTION WIDTH 13.8 % (11.5-14.5); WHITE BLOOD COUNT 3.7 10^3/ul (4.5-11.0)
[2018-03-01 07:36] LABS: INR 1.24 (0.93-1.08); PROTHROMBIN TIME 14.3 SECONDS (9.4-12.5)
[2018-03-01 07:37] LABS: ALB/GLOB RATIO 1.1 (1.1-1.8); ALBUMIN 3.8 g/dL (3.0-4.8); ALT/SGPT 16 U/L (7-56); AST/SGOT 27 U/L (17-59); BLOOD UREA NITROGEN 21 mg/dL (7-21); CALCIUM 9.4 mg/dL (8.4-10.5); GFR AFRICAN-AMERICAN > 60; GFR NON-AFRICAN AMERICAN 52
[2018-03-01 07:48] LABS: B-TYPE NATRIURETIC PEPTIDE 4720 pg/mL (0-450); TROPONIN I < 0.01 ng/mL
--- NOTE | 2018-03-01 09:02 | RAD ---
HISTORY: Generalized Weakness COMPARISON: 11/14/2017. FINDINGS: LUNGS: No active pulmonary disease. PLEURA: No significant pleural effusion identified, no pneumothorax apparent. CARDIOVASCULAR: No radiographic findings to suggest acute or significant cardiovascular disease. Position/ configuration of pacemaker device: Satisfactory. OSSEOUS STRUCTURES: No significant abnormalities. VISUALIZED UPPER ABDOMEN: Normal. OTHER FINDINGS: None. IMPRESSION: No active disease. No significant interval change compared to the prior examination(s).
[2018-03-01 09:09] LABS: URINE BILIRUBIN NEGATIVE (NEGATIVE); URINE BLOOD SMALL (NEGATIVE); URINE GLUCOSE (UA) NEGATIVE (NEGATIVE); URINE LEUKOCYTE ESTERASE MODERATE Leu/uL (NEGATIVE); URINE PROTEIN 30 mg/dL (<30 mg/dL)
[2018-03-01 09:11] LABS: URINE APPEARANCE CLEAR (CLEAR); URINE COLOR YELLOW (YELLOW)
[2018-03-01 09:18] LABS: URINE WBC 25 - 30 /hpf (0-6)
[2018-03-01 09:19] LABS: URINE AMORPHOUS SEDIMENT FEW; URINE BACTERIA MANY (NEG)
[2018-03-01 10:44] VITALS: BP 127/81; PULSE 72; TEMP 97.6
[2018-03-01 11:13] VITALS: O2SAT 99
--- NOTE | 2018-03-01 12:02 | CARD ---
APPROVED REPORT EKG Measurement Heart [id number] <Conclusion> AV sequential or dual chamber electronic pacemaker
== END 2018-03-01 11:12 | disposition home or self-care (01) ==
LOC: ED 06:10
DX: R55 Syncope and collapse (principal); N39.0 Urinary tract infection, site not specified; I10 Essential (primary) hypertension; E78.5 Hyperlipidemia, unspecified; I48.91 Unspecified atrial fibrillation; Z79.01 Long term (current) use of anticoagulants; N40.0 Benign prostatic hyperplasia without lower urinary tract symptoms; Z86.73 Personal history of transient ischemic attack (TIA), and cerebral infarction without residual deficits; Z95.0 Presence of cardiac pacemaker